=== PATIENT | male | born 1935 | race Caucasian/White ===

== ENCOUNTER 2023-05-19 10:37 | Outpatient (OUT) | payer MEDICARE, BC, SELFPAY ==
[2023-05-19 11:09] LABS: Basophils Percent Auto 0.6 % (0.2-2.0); Eosinophils Absolute Auto 0.2 10^3/uL (0.0-0.7); Eosinophils Percent Auto 4.1 % (0.9-7.0); Hematocrit 38.4 % (42.0-54.0); Immature Granulocytes Abs Auto 0.02 10^3/uL (0.00-0.03); Immature Granulocytes Pct Auto 0.4 % (0.0-0.5); Lymphocytes Absolute Auto 1.6 10^3/uL (1.2-3.8); Lymphocytes Percent Auto 29.8 % (20.5-60.0); Mean Corpuscular HGB Conc 33.9 g/dL (29.9-35.2); Mean Corpuscular Hemoglobin 30.2 pg (25.9-34.0); Mean Corpuscular Volume 89.1 fL (80.0-94.0); Mean Platelet Volume 9.7 fL (9.5-13.5); Monocytes Absolute Auto 0.5 10^3/uL (0.3-0.8); Monocytes Percent Auto 9.7 % (1.7-12.0); Neutrophils Percent Auto 55.4 % (43.0-75.0); Platelet Count 189 10^3/uL (150-450); Red Blood Count 4.31 10^6/uL (4.70-6.10); Red Cell Distribution Width 13.7 % (11.0-15.0); White Blood Count 5.4 10^3/uL (4.0-11.0)
[2023-05-19 11:51] LABS: Estimated Average Glucose 105 mg/dL; Glycohemoglobin A1C 5.3 % (4.5-6.2)
[2023-05-19 12:05] LABS: Alanine Aminotransferase 29 U/L (16-63); Albumin Globulin Ratio 0.9; Albumin Level 3.8 g/dL (3.4-5.0); Alkaline Phosphatase 153 U/L (46-116); Anion Gap 10.7; Aspartate Amino Transferase 20 U/L (15-37); Bilirubin Total 0.8 mg/dL (0.2-1.0); Calcium 9.9 mg/dL (8.5-10.1); Carbon Dioxide 29.6 mmol/L (21.0-32.0); Chloride 103 mmol/L (98-107); Chol HDL Ratio 3.2; Cholesterol 139 mg/dL (<=200); Estimated GFR (African America >60 (>=60); Estimated GFR (Non-African Ame 51 (>=60); Free T3 2.68 pg/mL (2.18-3.98); Globulin 4.1 g/dL; Glucose 101 mg/dL (74-106); HDL Cholesterol 44 mg/dL (40-60); LDL Cholesterol Calculated 75.4 mg/dL; Potassium 4.3 mmol/L (3.5-5.1); Sodium 139 mmol/L (136-145); Thyroid Stimulating Hormone 0.008 uIU/mL (0.358-3.740); Total Protein 7.9 g/dL (6.4-8.2); Triglycerides 98 mg/dL (<=150); Uric Acid 6.8 mg/dL (3.5-7.2); VLDL CHOLESTEROL 19.6 mg/dL
[2023-05-19 12:49] LABS: Prostate Specific Antigen Scrn 1.26 ng/mL (<=4.00)
[2023-05-20 12:08] LABS: Insulin 7.6 uIU/mL (2.6-24.9)
== END 2023-05-19 10:38 | disposition home or self-care (01) ==
LOC: LAB 10:46
PROVIDERS: PCP Family Medicine; Visit Provider Family Medicine
DX: E78.5 Hyperlipidemia, unspecified (principal); R73.09 Other abnormal glucose; Z12.5 Encounter for screening for malignant neoplasm of prostate; I11.0 Hypertensive heart disease with heart failure; I50.30 Unspecified diastolic (congestive) heart failure; E03.9 Hypothyroidism, unspecified; I30.0 Acute nonspecific idiopathic pericarditis; I48.91 Unspecified atrial fibrillation; K58.9 Irritable bowel syndrome, unspecified
CPT/HCPCS: 36415; 80053; 80061; 83036; 83525; 83880; 84436; 84443; 84481; 84550; 85025; G0103

== ENCOUNTER 2023-06-13 13:49 | Outpatient (OUT) | payer MEDICARE, BC, SELFPAY ==
--- NOTE | 2023-06-13 14:27 | CA_ITS ---
Patient: HOANG AQUINO Exam Date: 06/13/2023 : 1935 Gender:M Ordering : DR REAL VELASQUEZ M.D. Admission #: [id number] Family : TIM HEARD . Order #: [id number] CLICK HERE TO VIEW EXAM ECHOCARDIOGRAM REPORT PROCEDURE: CA ECHO DOPPLER COMPLETE INDICATIONS: Atrial fibrillation, PTCA COMPARISON: None. DESCRIPTION: COMPLETE ECHOCARDIOGRAM Real-time transthoracic echocardiography with 2D, M-mode, spectral and color flow Doppler performed. QUALITY: Technical quality was good. LEFT VENTRICLE: Normal chamber size. Normal left ventricular wall thickness. Normal systolic function. LV EF: Normal left ventricular ejection fraction, (>55%). DIASTOLIC: Not adequately assessed due to heart rhythm. ATRIAL SEPTUM: Visually appears intact. LEFT ATRIUM: Severe dilatation. RIGHT ATRIUM: Severe dilatation. RIGHT VENTRICLE: Moderate dilatation. Normal systolic function. TRICUSPID VALVE: Normal mobility and thickness. No stenosis with mild to moderate regurgitation. Doppler studies reveal moderately (45-60) elevated right sided pressures. RVSP 53 mmHg MITRAL VALVE: Normal mobility and thickness. No evidence of mitral valve stenosis. There is no mitral annular calcification. Mild to moderate mitral regurgitation. AORTIC VALVE: Normal trileaflet appearance. Mildly calcified aortic valve. Normal leaflet mobility. No evidence of aortic valve stenosis. Mild aortic regurgitation. AORTIC ROOT: Normal diameter and appearance. PULMONIC VALVE: Normal thickness and mobility. No stenosis. Mild regurgitation. PERICARDIUM: Trivial pericardial effusion. IVC: Normal in size. Collapses with inspirations. PLEURA: CONCLUSION: 1. Normal left ventricular size and systolic function. LVEF is 55%. 2. Moderately dilated right ventricle with normal systolic function. 3. Severe biatrial dilatation. 4. Mild to moderate mitral and tricuspid regurgitation. 5. Mild aortic regurgitation. 6. Moderately elevated right-sided pressures. RVSP is 53 mmHg. Adult Echocardiography Procedure Report Left Ventricle LVEDD (3.7 - 5.6 cm): 5.19 cm LVESD (2.2 - 4.0 cm): 4.03 cm LVIVS thickness (0.6 - 1.2 cm): 1.14 cm LVPW thickness (0.5 - 1.0 cm): 0.84 cm LVOT Max Gradient: 2.64 mm[Hg] LVOT Area (cm2): 0.81 m/s Peak Velocity (LVOT): 0.81 m/s Mean Velocity (LVOT): 0.54 m/s LVOT Diameter 2.04 cm Left Atrium LA Volume Index (2D A2C): 62.13 ml/m2 Left Atrium Systolic Dimension: 4.74 cm Mitral Valve Mitral Valve E-Wave Peak Velocity: 1.03 m/s Right Ventricle Aorta AO Root Diam: 3.04 cm Ascending Ao Diam: 2.70 cm Aortic Valve AoV Area (Peak Han): 2.32 cm2, 2.32 cm2 AoV Area (VTI): 2.32 cm2, 2.32 cm2 Peak Velocity(Antegrade Flow): 1.15 m/s Peak Gradient(Antegrade Flow): 5.26 mm[Hg] Mean Velocity(Antegrade Flow): 0.75 m/s Mean Gradient(Antegrade Flow): 2.59 mm[Hg] Velocity Time Integral: 27.21 cm Tricuspid Valve Peak Velocity (Regurgitant Flow): 3.19 m/s, 3.52 m/s, 2.74 m/s, 2.87 m/s Pulmonic Valve Peak Velocity: 0.84 m/s Peak Gradient: 3.22 mm[Hg], 2.18 mm[Hg], 3.08 mm[Hg] Right Atrium Right Atrium Systolic Pressure: 127.34 ml, 127.34 ml Dictated by: Real Velasquez M.D. on 06/14/2023 at 18:49 Approved by: Real Velasquez M.D. on 06/14/2023 at 18:55
== END 2023-06-13 13:50 | disposition home or self-care (01) ==
LOC: CARD 13:50
PROVIDERS: PCP Family Medicine; Visit Provider Internal Medicine Interventional Cardiology
DX: I48.11 Longstanding persistent atrial fibrillation (principal); I31.39 Other pericardial effusion (noninflammatory); I08.3 Combined rheumatic disorders of mitral, aortic and tricuspid valves
CPT/HCPCS: 93306

== ENCOUNTER 2024-06-19 09:49 | Outpatient (OUT) | payer MEDICARE, BC, SELFPAY ==
[2024-06-19 10:25] LABS: Basophils Percent Auto 0.6 % (0.2-2.0); Eosinophils Absolute Auto 0.3 10^3/uL (0.0-0.7); Eosinophils Percent Auto 4.6 % (0.9-7.0); Hematocrit 36.1 % (42.0-54.0); Hemoglobin 12.1 g/dL (14.0-18.0); Immature Granulocytes Abs Auto 0.02 10^3/uL (0.00-0.03); Immature Granulocytes Pct Auto 0.3 % (0.0-0.5); Lymphocytes Absolute Auto 2.2 10^3/uL (1.2-3.8); Lymphocytes Percent Auto 33.5 % (20.5-60.0); Mean Corpuscular HGB Conc 33.5 g/dL (29.9-35.2); Mean Corpuscular Volume 89.4 fL (80.0-94.0); Mean Platelet Volume 10.1 fL (9.5-13.5); Monocytes Absolute Auto 0.6 10^3/uL (0.3-0.8); Monocytes Percent Auto 9.7 % (1.7-12.0); Neutrophils Absolute Auto 3.3 10^3/uL (1.4-6.5); Neutrophils Percent Auto 51.3 % (43.0-75.0); Platelet Count 160 10^3/uL (150-450); Red Blood Count 4.04 10^6/uL (4.70-6.10); Red Cell Distribution Width 13.8 % (11.0-15.0); White Blood Count 6.5 10^3/uL (4.0-11.0)
[2024-06-19 12:03] LABS: Alanine Aminotransferase 23 U/L (16-63); Albumin Globulin Ratio 1.1; Albumin Level 3.7 g/dL (3.4-5.0); Alkaline Phosphatase 149 U/L (46-116); Anion Gap 12.4; Aspartate Amino Transferase 22 U/L (15-37); Bilirubin Total 0.8 mg/dL (0.2-1.0); Calcium 9.5 mg/dL (8.5-10.1); Carbon Dioxide 27.8 mmol/L (21.0-32.0); Chloride 102 mmol/L (98-107); Chol HDL Ratio 2.9; Cholesterol 129 mg/dL (<=200); Estimated GFR (African America >60 (>=60); Estimated GFR (Non-African Ame 53 (>=60); Globulin 3.4 g/dL; Glucose 94 mg/dL (74-106); HDL Cholesterol 44 mg/dL (40-60); LDL Cholesterol Calculated 67.8 mg/dL; Potassium 4.2 mmol/L (3.5-5.1); Sodium 138 mmol/L (136-145); Total Protein 7.1 g/dL (6.4-8.2); Triglycerides 86 mg/dL (<=150); VLDL CHOLESTEROL 17.2 mg/dL
== END 2024-06-19 09:50 | disposition home or self-care (01) ==
PROVIDERS: PCP Family Medicine; Visit Provider Internal Medicine Interventional Cardiology
DX: I25.10 Atherosclerotic heart disease of native coronary artery without angina pectoris (principal); I48.11 Longstanding persistent atrial fibrillation; I10 Essential (primary) hypertension; E78.2 Mixed hyperlipidemia
CPT/HCPCS: 36415; 80053; 80061; 85025

== ENCOUNTER 2024-07-16 13:48 | Outpatient (OUT) | payer MEDICARE, BC, SELFPAY ==
--- OUTSIDE RECORDS SUMMARY | 2024-07-16 14:04 | XMS_ITS | CCD ---
Author Organization [facility] CliniSywy Care Team Providers Care History Faculty Member Name Role Phone BETTY CARRERA Admitting Unavailable BETTY CARRERA Attending Unavailable HOPrerna ., DR DUMONT Primary Care Unavailable BETTY CARRERA Consulting Unavailable FÉLIX ., DR DUMONT Admitting Unavailable HOY ., DR DUMONT Attending Unavailable HOY ., DR DUMONT Primary Care Unavailable ROBERTO CARLOSY ., DR DUMONT Consulting Unavailable REAL GOMEZ Attending Unavailable LILY BEAN Attending Unavailable Problems Active Problems Problem Classification Problem Date Documented Date Episodic/Chronic Cancer; other and unspecified primary (1 source) Personal history of malignant neoplasm of other organs and systems; Translations: [PERS HX MALIG NEOPLASM OTH ORGN AND SYS] Onset: 01-25-2023 Episodic Cardiac dysrhythmias (2 sources) Paroxysmal atrial fibrillation; Translations: [Paroxysmal atrial fibrillation] Onset: 12-19-2022 Chronic Cataract (4 sources) Age-related nuclear cataract, right eye; Translations: [AGE-REL NUCLEAR CATARACT RT EYE] Onset: 01-19-2023 Chronic Coronary atherosclerosis and other heart disease (3 sources) Atherosclerotic heart disease of craig coronary artery without angina pectoris; Translations: [ASHD BREVIG [place]ION CA W/O ANGINA PECTORIS] Onset: 12-19-2022 Chronic Coronary atherosclerosis and other heart disease (3 sources) Presence of coronary angioplasty implant and graft; Translations: [PRESENCE COR ANGPLSTY IMPLANT AND GRAFT] Onset: 01-25-2023 Episodic Disorders of lipid metabolism (7 sources) Pure hypercholesterolemia, unspecified; Translations: [Hyperlipidemia, unspecified] Onset: 03-15-2022 Chronic Essential hypertension (3 sources) Essential (primary) hypertension; Translations: [ESSENTIAL PRIMARY HYPERTENSION] Onset: 12-19-2022 Chronic Hypertension with complications and secondary hypertension (2 sources) Hypertensive heart disease with heart failure; Translations: [Hypertensive heart disease with heart failure] Onset: 06-10-2024 Chronic Other aftercare (1 source) Other correction (current) drug therapy; Translations: [OTH MEMS DEVICE SCIENTIST CURRENT DRUG THERAPY] Onset: 01-25-2023 Episodic Pulmonary heart disease (2 sources) Pulmonary hypertension due to left heart disease; Translations: [Pulmonary hypertension due to left heart disease] Onset: 06-10-2024 Chronic Thyroid disorders (1 source) Hypothyroidism, unspecified; Translations: [HYPOTHYROIDISM UNSPECIFIED] Onset: 01-25-2023 Chronic Unclassified (2 sources) Longstanding persistent atrial fibrillation; Translations: [Longstanding persistent atrial fibrillation] Onset: 06-10-2024 Past or Other Problems Problem Classification Problem Date Documented Da te Episodic/Chronic Diabetes mellitus without complication (1 source) Other abnormal glucose; Translations: [OTHER ABNORMAL GLUCOSE] Onset: 03-17-2022 Episodic Other screening for suspected conditions (not mental disorders or infectious disease) (2 sources) Encounter for screening for malignant neoplasm of colon; Translations: [Encounter for screening for malignant neoplasm of prostate] Onset: 03-17-2022 Episodic Results Test Name Value Interpretation Reference Range Facility 36on 06-25-2024 36 Regarding lab results from 06/19/2024: MD Lupe Starr MA Blood testing was good, follow up in 6 months. Patient informed. Normal [facility] Office Visiton 06-10-2024 Follow-up visit [id number] Hoang Aquino 1935 M Date Provider Department Center 06/10/2024 REAL PAGAN EDD [facility] Family History Problem Relation Age of Onset Coronary artery disease Son Atrial fibrillation Son Hypertension Son Family Status - Relation Status Age at Son Other Level of Service:63865 [place] OFFICE/OUTPATIENT ESTABLISHED MOD MDM 30 MIN Normal [facility] 37on 11-22-2023 37 Increase cardura to 4 mg daily, monitor b/p and goal is less than 130/80 Call office for any concerns- lightheadedness, dizziness, falling, headaches or any concerns. Normal [facility] Office Visiton 11-22-2023 Follow-up visit [id number] Hoang Aquino 1935 M Date Provider Department Center 11/22/2023 LILY REDMOND [facility] Family History Problem Relation Age of Onset Coronary artery disease Son Atrial fibrillation Son Hypertension Son Family Status - Relation Status Age at Son Other Level of Service:08159 [place] OFFICE/OUTPATIENT ESTABLISHED MOD MDM 30 MIN Normal [facility] CBC AUTO DIFFon 03-15-2022 BASO # 0.0 103/ul Normal 0.0-0.1 [facility] Comment on above: Performed By: #### C BC #### [facility] [address] [address] [address] Lindsey Weiss Basophils/100 WBC (Bld) 0.5 % Normal 0.2-2.0 [facility] Comment on above: Performed By: #### C BC #### [facility] [address] [place] [address] Dr. Lindsey Weiss EO # 0.2 103/ul Normal 0.0-0.7 [facility] Comment on above: Performed By: #### C BC #### [facility] [address] [address] [address] Lindsey Weiss Eosinophils/100 WBC (Bld) 2.1 % Normal 0.9-7.0 [facility] Comment on above: Performed By: #### C BC #### [facility] [address] [place] [address] Dr. Lindsey Weiss Erythrocyte distribution width (RBC) [Ratio] 13.4 % Normal 11.0-15.0 [facility] Comment on above: Performed By: #### C BC #### [facility] [address] [place] [address] Dr. Lindsey Weiss Hematocrit (Bld) [Volume fraction] 34.1 % Critically low 42.0-54.0 [facility] Comment on above: Performed By: #### C BC #### [facility] [address] [place] [address] Dr. Lindsey Weiss Hemoglobin (Bld) [Mass/Vol] 11.2 g/dL Critically low 14.0-18.0 [facility] Comment on above: Performed By: #### C BC #### [facility] [address] [place] [address] Dr. Lindsey Weiss IG # 0.03 10e3/ul Normal 0.00-0.03 [facility] Comment on above: Performed By: #### C BC #### [facility] [address] [place] [address] Dr. Lindsey Weiss IG % 0.4 % Normal 0.0-0.5 [facility] Comment on above: Performed By: #### C BC #### [facility] [address] [place] [address] Dr. Lindsey Weiss LYMPH # 1.9 103/ul Normal 1.2-3.8 [facility] Comment on above: Performed By: #### C BC #### [facility] [address] [place] [address] Dr. Lindsey Weiss Lymphocytes/100 WBC (Bld) 23.8 % Normal 20.5-60.0 [facility] Comment on above: Performed By: #### C BC #### [facility] [address] [place] [address] Dr. Lindsey Weiss MANUAL DIFF REQ NO Normal [facility] Comment on above: Performed By: #### C BC #### [facility] [address] [place] [address] Dr. Lindsey Weiss MCH (RBC) [Entitic mass] 29.6 pg Normal 25.9-34.0 [facility] Comment on above: Performed By: #### C BC #### [facility] [address] [place] [address] Dr. Lindsey Weiss MCHC (RBC) [Mass/Vol] 32.8 g/dL Normal 29.9-35.2 [facility] Comment on above: Performed By: #### C BC #### [facility] [address] [place] [address] Dr. Lindsey Weiss MCV (RBC) [Entitic vol] 90.2 fL Normal 80.0-94.0 [facility] Comment on above: Performed By: #### C BC #### [facility] [address] [place] [address] Dr. Lindsey Weiss MONO # 0.6 103/ul Normal 0.3-0.8 [facility] Comment on above: Performed By: #### C BC #### [facility] [address] [place] [address] Dr. Lindsey Weiss Monocytes/100 WBC (Bld) 8.0 % Normal 1.7-12.0 [facility] Comment on above: Performed By: #### C BC #### [facility] [address] [place] [address] Dr. Lindsey Weiss NEUT # 5.1 103/ul Normal 1.4-6.5 [facility] Comment on above: Performed By: #### C BC #### [facility] [address] [place] [address] Dr. Lindsey Weiss Neutrophils/100 WBC (Bld) 65.2 % Normal 43.0-75.0 [facility] Comment on above: Performed By: #### C BC #### [facility] [address] [place] [address] Dr. Lindsey Weiss Platelet mean volume (Bld) [Entitic vol] 9.2 fL Critically low 9.5-13.5 [facility] Comment on above: Performed By: #### C BC #### [facility] [address] [place] [address] Dr. Lindsey Weiss PLT 209 103/ul Normal 150-450 [facility] Comment on above: Performed By: #### C BC #### [facility] [address] [place] [address] Dr. Lindsey Weiss RBC 3.78 106/ul Critically low 4.70-6.10 [facility] Comment on above: Performed By: #### C BC #### [facility] [address] [place] [address] Dr. Lindsey Weiss WBC 7.8 103/ul Normal 4.0-11.0 [facility] Comment on above: Performed By: #### C BC #### [facility] [address] [place] [address] Dr. Lindsey Weiss FREE T3on 03-15-2022 FREE T3 3.29 pg/mlL Normal 2.18-3.98 [facility] Comment on above: Performed By: #### C MP, LIPID, FT3, TSH, T4 #### [facility] [address] [address] [address] Lindsey Weiss GLYCOHEMOGLOBIN A1Con 2021 ADA RECOMMENDATION SEE BELOW Normal [facility] Comment on above: Result Comment: ADA RECOMMENDED LIMIT 4.0 - 6.0 ADA THERAPEUTIC TARGET < 7.0 ACTION SUGGESTED > 7.0 Performed By: #### A 1C #### [facility] [address] [place] [address] Dr. Lindsey Weiss Glucose [Mass/Vol] 105 mg/dL Normal [facility] Comment on above: Performed By: #### A 1C #### [facility] [address] [place] [address] Dr. Lindsey Weiss HbA1c (Bld) [Mass fraction] 5.3 % Normal 4.5-6.2 [facility] Comment on above: Performed By: #### A 1C #### [facility] [address] [place] [address] Dr. Lindsey Weiss LIPID PROFILEon 03-15-2022 CHOL-HDL RATIO NORM SEE BELOW Normal [facility] Comment on above: Result Comment: 3.3 - 4.4 LOW RISK 4.4 - 7.1 AVERAGE RISK 7.1 - 11.0 MODERATE RISK >11.0 HIGH RISK Performed By: #### C MP, LIPID, FT3, TSH, T4 #### [facility] [address] [place] [address] Dr. Lindsey Weiss Cholesterol [Mass/Vol] 126 mg/dL Normal <=200 [facility] Comment on above: Performed By: #### C MP, LIPID, FT3, TSH, T4 #### [facility] [address] [place] [address] Dr. Lindsey Weiss Cholesterol in HDL [Mass/Vol] 39 mg/dL Critically low 40-60 [facility] Comment on above: Performed By: #### C MP, LIPID, FT3, TSH, T4 #### [facility] [address] [place] [address] Dr. Lindsey Weiss Cholesterol in LDL [Mass/Vol] 65.4 mg/dL Normal [facility] Comment on above: Performed By: #### C MP, LIPID, FT3, TSH, T4 #### [facility] [address] [place] [address] Dr. Lindsey Weiss Cholesterol.total/Ch olesterol in HDL [Mass ratio] 3.2 {ratio} Normal [facility] Comment on above: Performed By: #### C MP, LIPID, FT3, TSH, T4 #### [facility] [address] [place] [address] Dr. Lindsey Weiss HDL NORMAL > or = 60 mg/dl - LOW CARDIOVASCULAR RISK <40 mg/dl - HIGH CARDIOVASCULAR RISK Normal [facility] Comment on above: Performed By: #### C MP, LIPID, FT3, TSH, T4 #### [facility] [address] [place] [address] Dr. Lindsey Weiss LDL CALC NORMAL SEE BELOW Normal [facility] Comment on above: Result Comment: <100 mg/dl OPTIMAL 100 - 129 mg/dl NEAR OR ABOVE OPTIMAL 130 - 159 mg/dl BORDERLINE HIGH 160 - 189 mg/dl HIGH >190 mg/dl VERY HIGH Performed By: #### C MP, LIPID, FT3, TSH, T4 #### [facility] [address] [place] [address] Dr. Lindsey Weiss Triglyceride [Mass/Vol] 108 mg/dL Normal <=150 [facility] Comment on above: Performed By: #### C MP, LIPID, FT3, TSH, T4 #### [facility] [address] [place] [address] Dr. Lindsey Weiss VLDL CALC 21.6 mg/dL Normal [facility] Comment on above: Performed By: #### C MP, LIPID, FT3, TSH, T4 #### [facility] [address] [place] [address] Dr. Lindsey Weiss PROF 14(COMP METB)on 022 Albumin [Mass/Vol] 3.7 g/dL Normal 3.4-5.0 [facility] Comment on above: Performed By: #### C MP, LIPID, FT3, TSH, T4 #### [facility] [address] [place] [address] Dr. Lindsey Weiss Albumin/Globulin [Mass ratio] 0.9 {ratio} Normal [facility] Comment on above: Performed By: #### C MP, LIPID, FT3, TSH, T4 #### [facility] [address] [place] [address] Dr. Lindsey Weiss ALP [Catalytic activity/Vol] 171 U/L Critically high 46-116 [facility] Comment on above: Performed By: #### C MP, LIPID, FT3, TSH, T4 #### [facility] [address] [place] [address] Dr. Lindsey Weiss ALT [Catalytic activity/Vol] 35 U/L Normal 16-63 [facility] Comment on above: Performed By: #### C MP, LIPID, FT3, TSH, T4 #### [facility] [address] [place] [address] Dr. Lindsey Weiss Anion gap [Moles/Vol] 11.3 mmol/L Normal [facility] Comment on above: Performed By: #### C MP, LIPID, FT3, TSH, T4 #### [facility] [address] [place] [address] Dr. Lindsey Weiss AST [Catalytic activity/Vol] 27 U/L Normal 15-37 [facility] Comment on above: Performed By: #### C MP, LIPID, FT3, TSH, T4 #### [facility] [address] [place] [address] Dr. Lindsey Weiss Bilirubin [Mass/Vol] 0.6 mg/dL Normal 0.2-1.0 [facility] Comment on above: Performed By: #### C MP, LIPID, FT3, TSH, T4 #### [facility] [address] [place] [address] Dr. Lindsey Weiss Calcium [Mass/Vol] 9.4 mg/dL Normal 8.5-10.1 [facility] Comment on above: Performed By: #### C MP, LIPID, FT3, TSH, T4 #### [facility] [address] [place] [address] Dr. Lindsey Weiss Chloride [Moles/Vol] 102 mmol/L Normal 98-107 [facility] Comment on above: Performed By: #### C MP, LIPID, FT3, TSH, T4 #### [facility] [address] [address] [address] Lindsey Weiss CO2 [Moles/Vol] 30.1 mmol/L Normal 21.0-32.0 [facility] Comment on above: Performed By: #### C MP, LIPID, FT3, TSH, T4 #### [facility] [address] [address] [address] Lindsey Weiss Creatinine [Mass/Vol] 1.31 mg/dL Critically high 0.70-1.30 [facility] Comment on above: Performed By: #### C MP, LIPID, FT3, TSH, T4 #### [facility] [address] [address] [address] Lindsey Weiss EGFR-AF ZIMBABWEAN >60 Normal >=60 [facility] Comment on above: Performed By: #### C MP, LIPID, FT3, TSH, T4 #### [facility] [address] [address] [address] Lindsey Weiss EGFR-NON AF ZIMBABWEAN 52 mL/min/1.73m2 Critically low >=60 [facility] Comment on above: Performed By: #### C MP, LIPID, FT3, TSH, T4 #### [facility] [address] [address] [address] Lindsey Weiss Globulin (S) [Mass/Vol] 3.9 g/dL Normal [facility] Comment on above: Performed By: #### C MP, LIPID, FT3, TSH, T4 #### [facility] [address] [address] [address] Lindsey Weiss Glucose [Mass/Vol] 98 mg/dL Normal 74-106 [facility] Comment on above: Performed By: #### C MP, LIPID, FT3, TSH, T4 #### [facility] [address] [address] [address] Lindsey Weiss Potassium [Moles/Vol] 4.4 mmol/L Normal 3.5-5.1 [facility] Comment on above: Performed By: #### C MP, LIPID, FT3, TSH, T4 #### [facility] [address] [place] [address] Dr. Lindsey Weiss Protein [Mass/Vol] 7.6 g/dL Normal 6.1-8.2 [facility] Comment on above: Performed By: #### C MP, LIPID, FT3, TSH, T4 #### [facility] [address] [place] [address] Dr. Lindsey Weiss Sodium [Moles/Vol] 139 mmol/L Normal 136-145 [facility] Comment on above: Performed By: #### C MP, LIPID, FT3, TSH, T4 #### [facility] [address] [place] [address] Dr. Lindsey Weiss Urea nitrogen [Mass/Vol] 19.0 mg/dL Critically high 7.0-18.0 [facility] Comment on above: Performed By: #### C MP, LIPID, FT3, TSH, T4 #### [facility] [address] [place] [address] Dr. Lindsey Weiss Urea nitrogen/Creatinine [Mass ratio] 14.5 mg/mg Normal [facility] Comment on above: Performed By: #### C MP, LIPID, FT3, TSH, T4 #### [facility] [address] [place] [address] Dr. Lindsey Weiss T4on 03-15-2022 T4 [Mass/Vol] 9.30 ug/dL Normal 4.50-12.10 [facility] Comment on above: Performed By: #### C MP, LIPID, FT3, TSH, T4 #### [facility] [address] [place] [address] Dr. Lindsey Weiss TSHon 03-15-2022 TSH 0.013 uIU/mL Critically low 0.470-4.680 [facility] Comment on above: Performed By: #### C MP, LIPID, FT3, TSH, T4 #### [facility] [address] [place] [address] Dr. Lindsey Weiss TSH RANGE SEE BELOW Normal [facility] Comment on above: Result Comment: <0.3 4 UIU/ml HYPERTHYROID 0.34-5.60 UIU/ml EUTHYROID >5.60 UIU/ml HYPOTHYROID Performed By: #### C MP, LIPID, FT3, TSH, T4 #### [facility] [address] [address] [address] CHEST W IVCONon 1 CT CHEST W IVCON * * *Final Report* * * DATE OF EXAM: Sep 23 2021 8:54AM [facility] 0539 - CT CHEST W IVCON / PROCEDURE REASON: Enlarged lymph node * * * * Physician Interpretation * * * * RESULT: EXAMINATION: CHEST CT WITH CONTRAST CLINICAL HISTORY: Enlarged Lymph Node Technique: Spiral CT acquisition of the chest from the thoracic inlet to the upper abdomen following IV contrast. MQ: [id number] Contrast: 140 mL Omnipaque [address] Radiation dose: Integrated Dose-length product (DLP) for this visit = 682 mGy*cm CT Dose Reduction Employed: Automated exposure control (AEC) Comparison: CT chest performed 09/10/2020 RESULT: Limitations: None. Lines, tubes, and devices: None. Lung parenchyma and airways: No dense lobar consolidation is seen. There is a stable 2 mm nodule in the right upper lobe (3:53). There is a stable 4 mm nodule in the right lower lobe (3:103). No new or enlarging nodules are visualized. Retained secretions are noted in the midportion of the trachea. The central airways are otherwise widely patent. Pleural space: No pleural effusion. No pleural thickening. Lower neck, lymph nodes, and mediastinum: The imaged thyroid gland is normal. No lymphadenopathy in the supraclavicular, axillary, mediastinal, or hilar regions. Heart, pericardium, and thoracic vessels: The thoracic aorta and main pulmonary artery are normal in caliber. The cardiac chambers are normal in size. Coronary artery atherosclerotic calcification is noted. No pericardial effusion is stable to slightly decreased in size. Bones and soft tissues: Degenerative change is seen in the thoracic spine. No destructive osseous lesions are seen. Superficial soft tissues are unremarkable. Upper abdomen: No abnormality in the imaged upper abdomen. Assistant Front Office Manager (topogram) images: No additional findings. IMPRESSION: 1. Unchanged appearance of right-sided pulmonary nodules. No new or enlarging nodules are visualized. 2. No pericardial effusion is stable to slightly decreased in size when compared to prior. Transcribe Date/Time: Sep 24 2021 10:13A Dictated by: DANNA SOLIS MD This examination was interpreted and the report reviewed and electronically signed by: DANNA SOLIS MD on Sep 24 2021 11:01AM EST Thank you for allowing us to participate in the care of your patient. Should there be any questions regarding this interpretation, please call [phone]. If you are unable to reach us at the number above, please feel free to contact [facility] at [phone]. 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 Contrast: Omnipaque 300. Contrast Dose: 140 cc Route of Administration: IV CT Radiation dose: Integrated Dose-length product (DLP) for this visit = 682 mGy*cm. CT Dose Reduction Employed: Automated exposure control (AEC) RESULT: Post-surgical/treatm ent: Expected post-treatment changes are noted with mucosal edema in the nasopharynx, and partial opacification of the right mastoid air cells and right middle ear. Primary Site: Again seen is prominence of the mucosa of the right nasopharynx compared to the left, with increased effacement of the right fossa of Rosenmuller compared to the left. However, this is unchanged. No new soft tissues to indicate recurrent disease at the primary site. Lymph nodes: [No pathologically enlarged, necrotic, or otherwise abnormal lymph nodes.] Rest of aerodigestive tract: There are no findings to suggest a second primary in the imaged aerodigestive tract. Evaluation of the visualized portions of brain, orbits, spine and lungs show no aggressive lesions suspicious for metastatic involvement. Mild to moderate cervical spondylosis noted. No significant paranasal sinus disease noted. Thyroid gland is unremarkable without evidence for nodule. Visualized lungs are clear. Parotid and submandibular glands are normal in appearance. Carotid arteries and jugular veins are patent bilaterally, with mild atherosclerosis at the bilateral carotid bulbs. Orbits: The globes and extraocular muscles appear normal.There is no evidence for retrobulbar mass. The parasellar region was within normal limits. The orbital rims are preserved. Other: Atherosclerotic calcifications noted in the bilateral carotid siphons. Small lesion in the trachea, likely debris. See concurrent CT chest. IMPRESSION: Primary NIRADS Category: 1. Expected post-treatment changes in the neck without evidence of recurrent disease in the primary site. Consider MRI of the neck with the suprahyoid protocol for future follow-up if clinically indicated. Neck NIRADS Category: 1. No evidence of abnormal lymph nodes. [email or web address] Transcribe Date/Time: Sep 23 2021 9:06A Dictated by: BETTY GEORGE MD This examination was interpreted and the report reviewed and electronically signed by: BETTY GEORGE MD on Sep 23 2021 9:15AM EST Thank you for allowing us to participate in the care of your patient. Should there be any questions regarding this interpretation, please call [phone]. If you are unable to reach us at the number above, please feel free to contact [facility] at [phone]. [id number] CN Normal [facility] Comp Metabolic Panelon 09-23 Albumin [Mass/Vol] 4.4 g/dL Normal 3.9-4.9 [facility] ALP [Catalytic activity/Vol] 167 U/L High 38-113 [facility] ALT [Catalytic activity/Vol] 17 U/L Normal 10-54 [facility] Anion gap [Moles/Vol] 11 mmol/L Normal 9-18 [facility] AST [Catalytic activity/Vol] 21 U/L Normal 14-40 [facility] Bilirubin [Mass/Vol] 0.7 mg/dL Normal 0.2-1.3 [facility] Calcium [Mass/Vol] 10.4 mg/dL High 8.5-10.2 [facility] Chloride [Moles/Vol] 103 mmol/L Normal 97-105 [facility] CO2 [Moles/Vol] 25 mmol/L Normal 22-30 [facility] Creatinine [Mass/Vol] 1.29 mg/dL High 0.73-1.22 [facility] eGFR- Amer. >60 Normal [facility] eGFR-All Other Races [address] [facility] Comment on above: Result Comment: eGFR (Estimated GFR) Units of measure: mL/min/1.73 meters squared eGFR is derived from the reexpressed MDRD Study equation using the following parameters: serum creatinine, age, gender and race. The creatinine assay has been calibrated to be traceable to IDMS. An eGFR <60 mL/min/1.73m2 for >3 months is consistent with chronic kidney disease. Refer to KDOQI guidelines for clinical interpretation. In patients with unstable renal function, e.g. those with acute kidney injury, the eGFR may not accurately reflect actual GFR. Glucose [Mass/Vol] 104 mg/dL High 74-99 [facility] Comment on above: Result Comment: The [place] Diabetes Association (ADA) provides guidance for cutoff values for fasting glucose and random glucose. The ADA defines fasting as no caloric intake for at least 8 hours. Fasting plasma glucose results between 100 to 125 mg/dL indicate increased risk for diabetes (prediabetes). Fasting plasma glucose results greater than or equal to 126 mg/dL meet the criteria for diagnosis of diabetes. In the absence of unequivocal hyperglycemia, results should be confirmed by repeat testing. In a patient with classic symptoms of hyperglycemia or hyperglycemic crisis, random plasma glucose results greater than or equal to 200 mg/dL meet the criteria for diagnosis of diabetes. Reference: Standards of Medical Care in Diabetes 2016, [place] [employer]. Diabetes Care. 2016.39(Suppl 1). Potassium [Moles/Vol] 4.1 mmol/L Normal 3.7-5.1 [facility] Protein [Mass/Vol] 7.4 g/dL Normal 6.3-8.0 [facility] Sodium [Moles/Vol] 139 mmol/L Normal 136-144 [facility] Urea nitrogen [Mass/Vol] 21 mg/dL Normal 9-24 [facility] Remote CBCDIF (for [facility] use o nly)on 09-23-2021 Abs Baso 0.03 k/uL Normal <0.11 [facility] Abs [place] 0.70 k/uL Normal <0.87 [facility] Abs Neut 3.11 k/uL Normal 1.45-7.50 [facility] Absolute nRBC <0.01 Normal <0.01 [facility] Basophils/100 WBC (Bld) 0.5 % Normal [facility] DTYPE Auto Diff Normal [facility] Eosinophils (Bld) [#/Vol] 0.21 10*3/uL Normal <0.46 [facility] Eosinophils/100 WBC (Bld) 3.7 % Normal [facility] Erythrocyte distribution width (RBC) [Ratio] 13.6 % Normal 11.5-15.0 [facility] Hematocrit (Bld) [Volume fraction] 34.2 % Low 39.0-51.0 [facility] Hemoglobin (Bld) [Mass/Vol] 11.6 g/dL Low 13.0-17.0 [facility] Lymphocytes (Bld) [#/Vol] 1.66 10*3/uL Normal 1.00-4.00 [facility] Lymphocytes/100 WBC (Bld) 29.0 % Normal [facility] MCH 29.4 pG Normal 26.0-34.0 [facility] MCHC (RBC) [Mass/Vol] 33.9 g/dL Normal 30.5-36.0 [facility] MCV (RBC) [Entitic vol] 86.6 fL Normal 80.0-100.0 [facility] Monocytes/100 WBC (Bld) 12.2 % Normal [facility] Neutrophils/100 WBC (Bld) 54.6 % Normal [facility] NRBCs 0.0 /100 WBC Normal 0 [facility] Platelet mean volume (Bld) [Entitic vol] 9.8 fL Normal 9.0-12.7 [facility] Platelets (Bld) [#/Vol] 163 10*3/uL Normal 150-400 [facility] RBC (Bld) [#/Vol] 3.95 10*6/uL Low 4.20-6.00 [facility] WBC (Bld) [#/Vol] 5.73 10*3/uL Normal 3.70-11.00 [facility] CNPNon 09-06-2021 CNPN Telephone (PETSAN) HOANG AQUINO ([id number]) 1935 M Date Time Provider Department 09/06/21 KAYLAH WILHELM (RN) ASTRID During your visit today, we recorded the following information about you: Kaylah Wilhelm 09/06/2021 7:59 AM Signed Did you want the Chest CT w/IVCON as historically done? It is ordered as Chest CT w/o IVCON currently. Patient comes in for scans 09/23. I have pended Chest CT w/IVCON if agreeable. Thanks! DIXON Caban MD 09/06/2021 1:26 PM Signed Creatinine has been high Kaylah Wlihelm 09/06/2021 1:28 PM Signed Okay do you want the neck CT w/o IV then too that day? Thanks DIXON Caban MD 09/06/2021 1:31 PM Signed Good point....! I signed your other one instead! Allergies As of Date: 09/06/2021 (No Known Allergies) Date Reviewed: 10/31/2020 Reviewed by: Dano Ontiveros - Fully Assessed Reason for Visit: Scans [867] Visit Diagnosis:Enlarged lymph node [R59.9] Order(s):CT CHEST W IVCON [[id number]] Order #: [id number] FUTURE iv contrast (will be provided with radiology test)CT Chest W -Inject, intravenously, once for 1 dose.No IV access, insert saline lock prior to the beginning of sedation, infusion, injection of imaging exam. Discontinue saline lock post exam. If Pt. has a central line or IVAD, may access for administration according to line specific nursing protocol. Once exam is complete flush line and de-access according to line specific nursing protocol in the CT contrast administration guidelines link.Disp: 1 EachRfl: 0 Prescriptions as of 09/06/2021 - iv contrast (will be provided with radiology test) CT Chest W -Inject, intravenously, once for 1 dose.No IV access, insert saline lock prior to the beginning of sedation, infusion, injection of imaging exam. Discontinue saline lock post exam. If Pt. has a central line or IVAD, may access for administration according to line specific nursing protocol. Once exam is complete flush line and de-access according to line specific nursing protocol in the CT contrast administration guidelines link. - amLODIPine (NORVASC) 10 mg tablet - apixaban (ELIQUIS) 2.5 mg tab tab(s) Eliquis 2.5 mg tablet Take 1 tablet twice a day by oral route. - liothyronine (CYTOMEL) 5 mcg tablet q 24 HR. - metoprolol succinate ER (TOPROL XL) 25 mg 24 hr tablet Take 1 tablet by mouth once daily. - aspirin 81 mg chewable tablet Take 1 tablet by mouth once daily. - atorvastatin (LIPITOR) 40 mg tablet Take 1 tablet by mouth daily at bedtime. - levothyroxine (SYNTHROID) 75 mcg tablet Take 1 tablet by mouth DAILY (6 AM). - iv contrast (will be provided with radiology test) CT Chest W -Inject, intravenously, once for 1 dose.No IV access, insert saline lock prior to the beginning of sedation, infusion, injection of imaging exam. Discontinue saline lock post exam. If Pt. has a central line or IVAD, may access for administration according to line specific nursing protocol. Once exam is complete flush line and de-access according to line specific nursing protocol in the CT contrast administration guidelines link. 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 Discontinue saline lock post exam. If Pt. has a central line or IVAD, may access for administration according to line specific nursing protocol. Once exam is complete flush line and de-access according to line specific nursing protocol in the CT contrast administration guidelines link. Encounter Status:Closed by KAYLAH WILHELM on 09/06/21 [facility] Encounters Encounter Date Encounter Type Care Provider Facility Start: 06-10-2024 End: 06-10-2024 ambulatory [facility] Start: 11-22-2023 End: 11-22-2023 ambulatory [facility] Start: 01-19-2023 End: 01-19-2023 ambulatory BETTY CARRERA Facility:[facility] Start: 03-15-2022 End: 03-16-[address] TIM HEARD . Facility:[facility] Procedures Date Procedure Procedure Detail Performing Clinician Start: 03-15-2022 PSA screening BETTY CARRERA Comment on above: Performed By: #### P [facility] #### [facility] [address] [place] [address] Dr. Lindsey Weiss Payers Date Payer Category Payer Unknown [id number] 1957 Medicare [id number] 1957 Unknown [id number] 1935 Unknown [id number] 1935 Unknown [id number] Clinical Notes 09-23-2021 to 06-10-2024 Note Date & Type Note Facility 06-10-2024 Note [place] [facility] Subjective Hoang Aquino is a 89 y.o. year old male patient being seen for 6 mo follow up valve disorder, CAD, and PAF. He's been out of Eliquis for 2 weeks now. He is not taking lasix due to frequent urination. Patient denies chest pain, SOB, palpitations, lightheadedness/syncope, and bleeding on Eliquis. No recent labs or imaging. Says BP at home runs around 140's/50's-60's. 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 (CMS/HCC) Hyperlipidemia Hypertensive disorder Hypothyroidism Impacted cerumen Irritable bowel syndrome Kidney stone Malignant neoplasm of nasopharynx (CMS/HCC) Moderate dehydration Osteoarthritis Paroxysmal atrial fibrillation (CMS/HCC) Pericardial effusion Psychosexual dysfunction associated with inhibited libido Sciatica Stricture of ureter Other specified abnormal findings of blood chemistry 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 Disorder of skin of trunk Mild mitral valve regurgitation Mild aortic valve regurgitation Family History Problem Relation Name Age of Onset Coronary artery disease Son Moo Atrial fibrillation Son Moo Hypertension Son Moo Social History Tobacco Use Smoking status: Former Types: Cigarettes Substance Use Topics Alcohol use: Yes Comment: occasional HPI Hoang is 89 yo man seen in follow up on atrial fibrillation diagnosed in September 2015 s/p cardioversion, CAD s/p drug eluting stenting of the RCA in March 2013 [At that time he had 30% narrowing in the LAD and circumflex vessels], Hypertension and dyslipidemia. He on Eliquis for anticoagulation. He was diagnosed to have brain cancer in March 2018 and treated with chemo and radiation. In October 2019 he developed pericardial effusion and was transferred to [facility] where he underwent pericardiocentesis. This did not show malignant cells. He was found to have profound hypothyroidism and was started on replacement therapy. Follow-up echocardiogram did not show significant pericardial effusion. Of note that his renal function became worse around the time of the pericardial effusion. His Cr then improved to 1.8 in November 2019 from 2.4 in october 2019. Most recently his Cr is around 1.3. At visit of 12/05/2019 I resumed amlodipine due to elevated blood pressure. This had been stopped at the time of his pericardial effusion. Today he reports that he has been doing well. He has no chest pain and no shortness of breath. He has no palpitations. He has no dizziness. He has no claudication. His blood pressure is significantly elevated. He ran out of [employer]. Review of Systems Cardiovascular: Negative for chest pain, dyspnea on exertion, leg swelling and palpitations. Objective Visit Vitals BP 155/67 (BP Location: Left arm, Patient Position: Sitting) Pulse 54 Ht 1.676 m (5' 6 ) Wt 67.6 kg (149 lb) SpO2 98% BMI 24.05 kg/m??? Smoking Status Former BSA 1.77 m??? Physical Exam Constitutional: Appearance: He is well-developed. He is not ill-appearing. HENT: Head: Normocephalic and atraumatic. Nose: Nose normal. Eyes: General: No scleral icterus. Pupils: Pupils are equal, round, and reactive to light. Neck: Thyroid: No thyromegaly. Vascular: No JVD. Cardiovascular: Rate and Rhythm: Normal rate. Rhythm irregularly irregular. Pulses: Radial pulses are 2+ on the right side and 2+ on the left side. Heart sounds: Normal heart sounds. No murmur heard. No friction rub. No gallop. Pulmonary: Effort: Pulmonary effort is normal. No respiratory distress. Breath sounds: Normal breath sounds. No wheezing or rales. Chest: Chest wall: No tenderness. Abdominal: General: Bowel sounds are normal. There is no distension. Palpations: Abdomen is soft. Tenderness: There is no abdominal tenderness. Musculoskeletal: General: No swelling. Cervical back: Neck supple. Skin: General: Skin is warm and dry. Neurological: General: No focal deficit present. Mental Status: He is alert and oriented to person, place, and time. Psychiatric: Mood and Affect: Mood normal. Behavior: Behavior is cooperative. Judgment: Judgment normal. Allergies No Known Allergies Medications Current Outpatient Medications: amLODIPine (Norvasc) 10 mg tablet, amlodipine 10 mg tablet TAKE ONE TABLET BY MOUTH ONCE DAILY, Disp: , Rfl: atorvastatin (Lipitor) 40 mg tablet, TAKE ONE TABLET BY MOUTH ONCE DAILY, Disp: 90 tablet, Rfl: 3 dicyclomine (Bentyl) 20 mg tablet, dicyclomine 20 mg tablet TAKE 1 TABLET BY MOUTH THREE TIMES A DAY, Disp: , Rfl: levothyroxine (Synthroid, Levoxyl) 125 mcg tablet, Take 125 mcg by mouth in the morning., Disp: , Rfl: liothyronine (Cytomel) 5 mcg tablet, liothyronine 5 mcg tablet TAKE TWO (more content not included)... [facility] 11-22-2023 Note Trivial pericardial effusion on recent echo [facility] 11-22-2023 Note Remains on eliquis a nticoagulation and denied any bleeding tendencies Continue metoprolol 100 mg - rate is well controlled [facility] 11-22-2023 Note Coronary artery dise ase is stable Continue GDMT- ASA, lipitor, metoprolol continue risk factor modifications- heart healthy diet, regular exercise as tolerated and continue all medications. [facility] 11-22-2023 Note Continue lipitor [facility] 11-22-2023 Note Hypertension is unco ntrolled in office and pt does not monitor at home. Increase cardura to 4 mg daily, continue norvasc 10 mg, and metoprolol 100 mg Asked pt to monitor b/p at least 1-2 times a day or even just a couple times a week, and goal b/p is 130/80 or less. Staff will call him next week to check b/p [facility] 11-22-2023 Note No concerning sympto ms today Continue ASA and metoprolol [facility] 11-22-2023 Note No concerning sympto ms today Will monitor [facility] 11-22-2023 Note [facility] CARDIOLOGY PROGR ESS NOTE HPI: Hoang Aquino is a 88 y.o. male here for routine f/U for atrial fibrillation diagnosed in September 2015 s/p cardioversion, CAD s/p drug eluting stenting of the RCA in March 2013 [At that time he had 30% narrowing in the LAD and circumflex vessels], Hypertension and dyslipidemia HPI 88 yo male presents today for routine f/U. Patient here for 6 mo follow up CAD, PAF, and hypertension. Had echo in May 2023 after last apt. Denies chest pain, SOB, palpitations, and bleeding on Eliquis. Denied any activity limiting symptoms. Overall states he is feeling well. He does not take his b/p at home. Review of Systems Musculoskeletal: Positive for arthritis and muscle weakness. All other systems reviewed and are negative. 06/06/[address] Gomez HPI Hoang is 88 yo man seen in follow up on atrial fibrillation diagnosed in September 2015 s/p cardioversion, CAD s/p drug eluting stenting of the RCA in March 2013 [At that time he had 30% narrowing in the LAD and circumflex vessels], Hypertension and dyslipidemia. He on Eliquis for anticoagulation. He was diagnosed to have brain cancer in March 2018 and treated with chemo and radiation. In October 2019 he developed pericardial effusion and was transferred to [facility] where he underwent pericardiocentesis. This did not show malignant cells. He was found to have profound hypothyroidism and was started on replacement therapy. Follow-up echocardiogram did not show significant pericardial effusion. Of note that his renal function became worse around the time of the pericardial effusion. His Cr then improved to 1.8 in November 2019 from 2.4 in october 2019. Most recently his Cr is around 1.3. At visit of 12/05/2019 I resumed amlodipine due to elevated blood pressure. This had been stopped at the time of his pericardial effusion. He has been doing well since last visit of 12/19/2022 with us. He has no chest pain and no shortness of breath. He has no palpitations. He has no dizziness. He has no claudication. Visit Vitals BP 178/82 (BP Location: Left arm, Patient Position: Sitting) Pulse 63 Ht 1.676 m (5' 6 ) Wt 69.4 kg (153 lb) SpO2 97% BMI 24.69 kg/m??? Smoking Status Former BSA 1.8 m??? No Known Allergies Medications: Current Outpatient Medications on File Prior to Visit Medication Sig Dispense Refill amLODIPine (Norvasc) 10 mg tablet amlodipine 10 mg tablet TAKE ONE TABLET BY MOUTH ONCE DAILY apixaban (Eliquis) 2.5 mg tablet every 12 (twelve) hours. atorvastatin (Lipitor) 40 mg tablet TAKE ONE TABLET BY MOUTH ONCE DAILY 90 tablet 3 dicyclomine (Bentyl) 20 mg tablet dicyclomine 20 mg tablet TAKE 1 TABLET BY MOUTH THREE TIMES A DAY furosemide (Lasix) 20 mg tablet Take 1 tablet (20 mg) by mouth once daily as directed. 90 tablet 3 levothyroxine (Synthroid, Levoxyl) 125 mcg tablet Take 125 mcg by mouth in the morning. liothyronine (Cytomel) 5 mcg tablet liothyronine 5 mcg tablet TAKE TWO TABLETS BY MOUTH ONCE DAILY metoprolol succinate XL (Toprol-XL) 100 mg 24 hr tablet metoprolol succinate ER 100 mg tablet,extended release 24 hr TAKE ONE TABLET BY MOUTH ONCE DAILY 90 tablet 3 [DISCONTINUED] doxazosin (Cardura) 2 mg tablet doxazosin 2 mg tablet TAKE ONE TABLET BY MOUTH DAILY aspirin 81 mg chewable tablet Chew 81 mg in the morning. No current facility-administered medications on file prior to visit. Physical Exam: Constitutional: Appearance: Normal appearance. Without apparent distress HENT: Head: Normocephalic and atraumatic. Nose: Nose normal. Mouth/Throat: Mouth: Mucous membranes are moist. Eyes: Extraocular Movements: Extraocular movements intact. Conjunctiva/sclera: Conjunctivae normal. Neck: Vascular: No JVD. Cardiovascular: Rate and Rhythm: Normal rate and irregular rhythm. Pulses: Dorsalis pedis pulses are 2 on the right side and 2on the left side. Posterior tibial pulses are 2 on the right side and 2 on the left side. Heart sounds: Normal heart sounds, S1 normal and S2 normal. Pulmonary: Effort: Pulmonary effort is normal. Breath sounds: Normal breath sounds. Abdominal: General: Bowel sounds are normal. Palpations: Abdomen is soft. Musculoskeletal: General: Normal range of motion. Cervical back: Normal range of motion. Right lower leg: No edema. Left lower leg: No edema. Skin: General: Skin is warm and dry. Capillary Refill: Capillary refill takes less than 2 seconds. Neurological: General: No focal deficit present. Mental Status: he is alert and oriented to person, place, and time. Psychiatric: Mood and Affect: Mood normal. Behavior: Behavior normal. Thought Content: Thought content normal. Judgment: Judgment normal. Labs: CBC stable, renal function stable for him, Chol 139 well controlled. Blood testing 05/19/2023: Hb 13, plt 189, K 4.3, BUN 20, Cr 1.33, eGFR 51, HbA1c 5.3%, NTproBNP 2678, TG 98, Chol 139, LDL 75, HD (more content not included)... [facility] 11-22-2023 Note Patient here for 6 m o follow up CAD, PAF, and hypertension. Had echo in May 2023 after last apt. Denies chest pain, SOB, palpitations, and bleeding on Eliquis. Review of Systems Musculoskeletal: Positive for arthritis and muscle weakness. All other systems reviewed and are negative. [facility] 01-19-2023 Note OPERATIVE NOTE OPERATION DATE: 01/19/2023 SURGEON: Betty Carrera D.O. PREOPERATIVE DIAGNOSIS: Nuclear sclerotic cataract right eye. POSTOPERATIVE DIAGNOSIS: Nuclear sclerotic cataract right eye. PROCEDURE NAME: Cataract extraction with intraocular lens placement of the right eye. ANESTHESIA: Topical ESTIMATED BLOOD LOSS: Zero. COMPLICATIONS: None. PROCEDURE: The patient was brought to the Operating Room in supine position. After proper identification, the right eye was prepped and draped in a sterile ophthalmic fashion. A paracentesis created at the 11 o'clock position. Approximately 1 cc of unpreserved Xylocaine was injected into the anterior chamber followed by Amvisc Plus. Using a 2.6 mm Keratome blade, a clear corneal incision was created at the 9 o'clock limbus. A cystotome was then used to begin a curvilinear capsulorrhexis that was continued for 360 degrees with the Utrata forceps. BSS on a 26 gauge cannula was injected beneath the anterior capsule to hydrodissect as well as hydrodelineate the lens. After ensuring mobility, phacoemulsification was performed in a [id number]-type fashion. After all nuclear material had been removed from the eye, IA was introduced and all residual cortical material was cleaned up. Additional Amvisc Plus was injected into the posterior bag and a lens model MX60, 20.5 diopters was injected and dialed into position. After ensuring centration, IA was reintroduced into the anterior chamber and all residual Amvisc Plus was removed from the eye. BSS on a 30 gauge cannula was injected into the stroma of both the clear corneal incision as well as paracentesis to hydrate the wounds. Additional BSS was injected into the anterior chamber to pressurize the eye at approximately 20 to 22 mmHg by finger tension. 0.1 cc of antibiotic was injected into the anterior chamber and Weck-Mallory sponges were used to check the wounds to be watertight. One drop of apraclonidine and one drop of prednisolone acetate placed into the eye and a shield was placed over top. The patient was sent to the postoperative area in satisfactory condition to follow up the following day for postoperative care. [facility] 01-19-2023 Note PREOPERATIVE HISTORY AND PHYSICAL Date:01/18/2023 HISTORY: Patient is an 88-year-old white male with complaints of declining vision out of his right eye. He believes that this began years ago, gradually worsening over the last 2-3 years. He is having difficulty with both his distance as well as his near vision. With the near, it is reading that has affected him most. He also states having difficulty with glare at night time and halos around car lights. PAST OCULAR HISTORY: Denies. PAST MEDICAL HISTORY: 1. Coronary artery disease status post stents placed in 2012. 2. Hypercholesterolemia. 3. Hypertension. 4. Hypothyroidism. 5. History of head and neck cancer status post radiation and chemotherapy in 2018. SOCIAL HISTORY: Drinks occasionally. Denies recreational drug abuse or tobacco. SYSTEMIC MEDICATIONS: Include metoprolol, liothyronine, dicyclomine and atorvastatin. ALLERGIES: Denies. REVIEW OF SYSTEMS: No pertinent positives. PHYSICAL EXAM: VITALS: Blood pressure measured at 169/91 with a respiratory rate of 12 and pulse of 69. GENERAL: He is awake, alert and oriented x3, well developed, well nourished, in no acute distress. HEART: Regular rate and rhythm. LUNGS: Clear bilaterally. ABDOMEN: Soft, non-tender, non-distended. EXTREMITIES: No pitting edema. OPHTHALMIC EXAM: Revealed a visual acuity of 20/40 +2 that glared to 20/200 bilaterally. Pupils motility, muscle balance, confrontational visual garcia within normal limits bilaterally. Pressures measured at 16 bilaterally. Slit lamp exam revealed blepharitis with a severe decrease in tear film bilaterally. Conjunctiva, cornea, anterior chamber and iris were within normal limits bilaterally. Lens status demonstrated 3+ nuclear sclerosis with 1+ cortical changes and 2+ PSC bilaterally. FUNDUS EXAM: Revealed a good view with good dilation bilaterally. Optic discs, macula, vessels, periphery and vitreous were within normal limits bilaterally. ASSESSMENT AND PLAN: 1. Visually significant cataract, right eye. After risks, benefits, alternatives, as well as expectations were delivered to the patient, he elected to go forward with cataract removal. He understands the risks include but not limited to infection, bleeding, loss of vision, loss of the eye itself. Secondly, he understands postoperatively he is likely to require spectacle correction for his best visual acuity. Finally, a complete ophthalmic exam was performed, there is not determined to be any other source of visual decline other than that of the cataract. 2. COVID-19, the patient was briefed in the office and consented for elective cataract surgery in the setting of the pandemic of coronavirus. He understands that he is at heightened risk going into a hospital setting; however, feels that his activities of daily living are depleted severe enough by his cataracts that he is willing to incur this risk and go forward with his elective procedure. [facility] 09-23-2021 Note HNO ID: [id number] Author: RT Domo(R) Service: ? Author Type: Technologist Type: Progress Notes Filed: 09/23/2021 8:50 AM Note Text: Radiology Service Progress Note PATIENT NAME: Hoang Aquino DATE OF SERVICE: September 23, 2021 TIME: 8:50 AM PATIENT IDENTITY VERIFICATION COMPLETED USING TWO (2) IDENTIFIERS: Name and Date of confirmed by patient verbally. FALL SCREENING: Has the patient had 2 falls in the last year or 1 fall with injury or currently using an Ambulatory Assistive Device (Walker, Cane, Wheelchair, Crutches, etc.)? No PATIENT GENDER DATA: Male PATIENT RELEVANT IMPLANT DATA REVIEWED: Not Applicable RADIOLOGY DEPARTMENT: CT; Exam(s) Completed: Chest and Neck PERIPHERAL IV DATA: Site assessment: Clean,Dry and Intact, Site disposition Discontinued SIGNED BY: RT Domo(R) September 23, 2021 8:50 AM [facility] Summary Purpose Family History No Family History Records FoundNo Family History Records FoundNo Family History Records Found Advance Directives No Advanced Directives Records FoundNo Advanced Directives Records FoundNo Advanced Directives Records Found Additional Source Comments (unrecognized sect ion and content) No Status Records FoundNo Status Records FoundNo Status Records Found INFORMATION SOURCE (unrecogn ized section and content) DATE CREATED AUTHOR 12/24/2021 [facility] DATE CREATED AUTHOR 'S ORGANIZ ATION 01/27/[address] [facility] DATE CREATED AUTHOR 'S ORGANIZ ATION 06/27/2024 [facility] FOR RECORDS PERTAINING TO PATIENTS WHO ARE OR HAVE BEEN ENROLLED IN A CHEMICAL DEPENDENCY/SUBSTANCEABUSE PROGRAM, SOME INFORMATION MAY BE OMITTED. This clinical summary was aggregated from multiple sources. Caution should be exercised in using it in the provision of clinical care. This summary normalizes information from multiple sources, and as a consequence, information in this document may materially change the coding, format and clinical context of patient data. In addition, data may be omitted in some cases. CLINICAL DECISIONS SHOULD BE BASED ON THE PRIMARY CLINICAL RECORDS. [facility] [employer] [facility] provides no warranty or guarantee of the accuracy or completeness of information in this document.
[2024-07-16 14:06] LABS: Basophils Percent Auto 0.7 % (0.2-2.0); Eosinophils Absolute Auto 0.2 10^3/uL (0.0-0.7); Eosinophils Percent Auto 3.8 % (0.9-7.0); Hematocrit 33.7 % (42.0-54.0); Hemoglobin 11.5 g/dL (14.0-18.0); Immature Granulocytes Abs Auto 0.01 10^3/uL (0.00-0.03); Immature Granulocytes Pct Auto 0.2 % (0.0-0.5); Lymphocytes Absolute Auto 1.1 10^3/uL (1.2-3.8); Lymphocytes Percent Auto 19.4 % (20.5-60.0); Mean Corpuscular HGB Conc 34.1 g/dL (29.9-35.2); Mean Corpuscular Hemoglobin 30.3 pg (25.9-34.0); Mean Corpuscular Volume 88.9 fL (80.0-94.0); Mean Platelet Volume 9.1 fL (9.5-13.5); Monocytes Absolute Auto 0.5 10^3/uL (0.3-0.8); Monocytes Percent Auto 8.5 % (1.7-12.0); Neutrophils Absolute Auto 3.9 10^3/uL (1.4-6.5); Neutrophils Percent Auto 67.4 % (43.0-75.0); Platelet Count 156 10^3/uL (150-450); Red Blood Count 3.79 10^6/uL (4.70-6.10); Red Cell Distribution Width 13.4 % (11.0-15.0); White Blood Count 5.8 10^3/uL (4.0-11.0)
[2024-07-16 14:24] LABS: Estimated Average Glucose 111 mg/dL; Glycohemoglobin A1C 5.5 % (4.5-6.2)
[2024-07-16 14:36] LABS: Alanine Aminotransferase 28 U/L (16-63); Albumin Globulin Ratio 0.9; Albumin Level 3.5 g/dL (3.4-5.0); Alkaline Phosphatase 165 U/L (46-116); Anion Gap 11.2; Aspartate Amino Transferase 25 U/L (15-37); BUN Creatinine Ratio 11.3; Bilirubin Total 0.8 mg/dL (0.2-1.0); Calcium 9.6 mg/dL (8.5-10.1); Carbon Dioxide 31.6 mmol/L (21.0-32.0); Chloride 99 mmol/L (98-107); Estimated GFR (African America >60 (>=60); Estimated GFR (Non-African Ame >60 (>=60); Globulin 3.7 g/dL; Glucose 147 mg/dL (74-106); Potassium 3.8 mmol/L (3.5-5.1); Sodium 138 mmol/L (136-145); Thyroid Stimulating Hormone <0.007 uIU/mL (0.358-3.740); Total Protein 7.2 g/dL (6.4-8.2)
== END 2024-07-16 13:49 | disposition home or self-care (01) ==
LOC: LAB 13:51
PROVIDERS: PCP Family Medicine; Visit Provider Family Medicine
DX: E03.9 Hypothyroidism, unspecified (principal); I48.91 Unspecified atrial fibrillation; I51.7 Cardiomegaly; R53.83 Other fatigue; R73.09 Other abnormal glucose
CPT/HCPCS: 36415; 80053; 83036; 84436; 84443; 84481; 85025

== ENCOUNTER 2024-09-12 11:16 | Outpatient (OUT) | payer MEDICARE, BC, SELFPAY ==
--- OUTSIDE RECORDS SUMMARY | 2024-09-12 11:32 | XMS_ITS | CCD ---
Author Organization [facility] CliniSyne Care Team Providers Care Window And Siding Craftsman Name Role Phone BETTY CARRERA Admitting Unavailable BETTY CARRERA Attending Unavailable HOPrerna ., DR DUMONT Primary Care Unavailable BETTY CARRERA Consulting Unavailable FÉLIX ., DR DUMONT Admitting Unavailable HOY ., DR UDMONT Attending Unavailable HOY ., DR DUMONT Primary [...] disease (3 sources) Atherosclerotic heart disease of [place] coronary artery without angina pectoris; Translations: [ASHD ANGOON CA W/O ANGINA PECTORIS] Onset: 12-19-2022 Chronic [...] 06-10-2024 Chronic Other aftercare (1 source) 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 Patient informed. Normal [facility] Office Visiton 06-10-2024 Follow-up visit [id number] Hoang Aquino 1935 M Date Provider Department Center 06/10/2024 [facility] Family History Problem Relation Age of Onset Coronary artery disease Son Atrial fibrillation Son Hypertension Son Family Status - Relation Status Age at Son Other Level of Service:08550 DC OFFICE/OUTPATIENT ESTABLISHED MOD MDM 30 MIN Normal [facility] 37on 11-22-2023 39 Increase cardura to 4 mg daily, monitor b/p and goal is less than 130/80 Call office for any concerns- lightheadedness, dizziness, falling, headaches or any concerns. Normal [facility] Office Visiton 11-22-2023 Follow-up visit [id number] Hoang Aquino 1935 M Date Provider Department Center 11/22/2023 LILY REDMOND [facility] Family History Problem Relation Age of Onset Coronary artery disease Son Atrial fibrillation Son Hypertension Son Family Status - Relation Status Age at Son Other Level of Service:66068 DC OFFICE/OUTPATIENT ESTABLISHED MOD MDM 30 MIN Normal [facility] CBC AUTO DIFFon 03-15-2022 BASO # 0.0 103/ul Normal 0.0-0.1 [facility] Comment on above: Performed By: #### C BC #### [facility] [address] [address] [address] Lindsey Weiss Basophils/100 WBC (Bld) 0.5 % Normal 0.2-2.0 [facility] Comment on above: Performed By: #### C BC #### [facility] [address] [place] [address] Dr. Lindsey Weiss EO # 0.2 103/ul Normal 0.0-0.7 [facility] Comment on above: Performed By: #### C BC #### [facility] [address] [address] [address] Lindsey Weiss Eosinophils/100 WBC (Bld) 2.1 % Normal 0.9-7.0 [facility] Comment on above: Performed By: #### C BC #### [facility] [address] [place] [address] Dr. Lindsey Weiss Erythrocyte distribution width (RBC) [Ratio] 13.4 % Normal 11.0-15.0 [facility] Comment on above: Performed By: #### C BC #### [facility] [address] [place] [address] Dr. Lindsey Weiss Hematocrit (Bld) [Volume fraction] 34.1 % Critically low 42.0-54.0 [facility] Comment on above: Performed By: #### C BC #### [facility] [address] [place] [address] Dr. Lindsey Weiss Hemoglobin (Bld) [Mass/Vol] 11.2 g/dL Critically low 14.0-18.0 [facility] Comment on above: Performed By: #### C BC #### [facility] [address] [place] [address] Dr. Lindsey Weiss IG # 0.03 10e3/ul Normal 0.00-0.03 [facility] Comment on above: Performed By: #### C BC #### [facility] [address] [place] [address] Dr. Lindsey Weiss IG % 0.4 % Normal 0.0-0.5 [facility] Comment on above: Performed By: #### C BC #### [facility] [address] [place] [address] Dr. Lindsey Weiss LYMPH # 1.9 103/ul Normal 1.2-3.8 [facility] Comment on above: Performed By: #### C BC #### [facility] [address] [place] [address] Dr. Lindsey Weiss Lymphocytes/100 WBC (Bld) 23.8 % Normal 20.5-60.0 [facility] Comment on above: Performed By: #### C BC #### [facility] [address] [place] [address] Dr. Lindsey Weiss MANUAL DIFF REQ NO Normal [facility] Comment on above: Performed By: #### C BC #### [facility] [address] [place] [address] Dr. Lindsey Weiss MCH (RBC) [Entitic mass] 29.6 pg Normal 25.9-34.0 [facility] Comment on above: Performed By: #### C BC #### [facility] [address] [place] [address] Dr. Lindsey Weiss MCHC (RBC) [Mass/Vol] 32.8 g/dL Normal 29.9-35.2 [facility] Comment on above: Performed By: #### C BC #### [facility] [address] [place] [address] Dr. Lindsey Weiss MCV (RBC) [Entitic vol] 90.2 fL Normal 80.0-94.0 [facility] Comment on above: Performed By: #### C BC #### [facility] [address] [place] [address] Dr. Lindsey Weiss MONO # 0.6 103/ul Normal 0.3-0.8 [facility] Comment on above: Performed By: #### C BC #### [facility] [address] [place] [address] Dr. Lindsey Weiss Monocytes/100 WBC (Bld) 8.0 % Normal 1.7-12.0 [facility] Comment on above: Performed By: #### C BC #### [facility] [address] [place] [address] Dr. Lindsey Weiss NEUT # 5.1 103/ul Normal 1.4-6.5 [facility] Comment on above: Performed By: #### C BC #### [facility] [address] [place] [address] Dr. Lindsey Weiss Neutrophils/100 WBC (Bld) 65.2 % Normal 43.0-75.0 [facility] Comment on above: Performed By: #### C BC #### [facility] [address] [place] [address] Dr. Lindsey Weiss Platelet mean volume (Bld) [Entitic vol] 9.2 fL Critically low 9.5-13.5 [facility] Comment on above: Performed By: #### C BC #### [facility] [address] [place] [address] Dr. Lindsey Weiss PLT 209 103/ul Normal 150-450 [facility] Comment on above: Performed By: #### C BC #### [facility] [address] [place] [address] Dr. Lindsey Weiss RBC 3.78 106/ul Critically low 4.70-6.10 [facility] Comment on above: Performed By: #### C BC #### [facility] [address] [place] [address] Dr. Lindsey Wesis WBC 7.8 103/ul Normal 4.0-11.0 [facility] Comment on above: Performed By: #### C BC #### [facility] [address] [place] [address] Dr. Lindsey Weiss FREE T3on 03-15-2022 FREE T3 3.29 pg/mlL Normal 2.18-3.98 [facility] Comment on above: Performed By: #### C MP, LIPID, FT3, TSH, T4 #### [facility] [address] [address] [address] Lindsey Weiss GLYCOHEMOGLOBIN A1Con 2021 ADA RECOMMENDATION SEE BELOW Normal [facility] Comment on above: Result Comment: ADA RECOMMENDED LIMIT 4.0 - 6.0 ADA THERAPEUTIC TARGET < 7.0 ACTION SUGGESTED > 7.0 Performed By: #### A 1C #### [facility] [address] [place] [address] Dr. Lindsey Weiss Glucose [Mass/Vol] 105 mg/dL Normal [facility] Comment on above: Performed By: #### A 1C #### [facility] [address] [place] [address] Dr. Lindsey Weiss HbA1c (Bld) [Mass fraction] 5.3 % Normal 4.5-6.2 [facility] Comment on above: Performed By: #### A 1C #### [facility] [address] [place] [address] Dr. Lindsey Weiss LIPID PROFILEon 03-15-2022 CHOL-HDL RATIO NORM SEE BELOW Normal [facility] Comment on above: Result Comment: 3.3 - 4.4 LOW RISK 4.4 - 7.1 AVERAGE RISK 7.1 - 11.0 MODERATE RISK >11.0 HIGH RISK Performed By: #### C MP, LIPID, FT3, TSH, T4 #### [facility] [address] [place] [address] Dr. Lindsey Weiss Cholesterol [Mass/Vol] 126 mg/dL Normal <=200 [facility] Comment on above: Performed By: #### C MP, LIPID, FT3, TSH, T4 #### [facility] [address] [place] [address] Dr. Lindsey Weiss Cholesterol in HDL [Mass/Vol] 39 mg/dL Critically low 40-60 [facility] Comment on above: Performed By: #### C MP, LIPID, FT3, TSH, T4 #### [facility] [address] [place] [address] Dr. Lindsey Weiss Cholesterol in LDL [Mass/Vol] 65.4 mg/dL Normal [facility] Comment on above: Performed By: #### C MP, LIPID, FT3, TSH, T4 #### [facility] [address] [place] [address] Dr. Lindsey Weiss Cholesterol.total/Ch olesterol in HDL [Mass ratio] 3.2 {ratio} Normal [facility] Comment on above: Performed By: #### C MP, LIPID, FT3, TSH, T4 #### [facility] [address] [place] [address] Dr. Lindsey Weiss HDL NORMAL > or = 60 mg/dl - LOW CARDIOVASCULAR RISK <40 mg/dl - HIGH CARDIOVASCULAR RISK Normal [facility] Comment on above: Performed By: #### C MP, LIPID, FT3, TSH, T4 #### [facility] [address] [place] [address] Dr. Lindsey Weiss LDL CALC NORMAL SEE BELOW Normal [facility] Comment on above: Result Comment: <100 mg/dl OPTIMAL 100 - 129 mg/dl NEAR OR ABOVE OPTIMAL 130 - 159 mg/dl BORDERLINE HIGH 160 - 189 mg/dl HIGH >190 mg/dl VERY HIGH Performed By: #### C MP, LIPID, FT3, TSH, T4 #### [facility] [address] [place] [address] Dr. Lindsey Weiss Triglyceride [Mass/Vol] 108 mg/dL Normal <=150 [facility] Comment on above: Performed By: #### C MP, LIPID, FT3, TSH, T4 #### [facility] [address] [place] [address] Dr. Lindsey Weiss VLDL CALC 21.6 mg/dL Normal [facility] Comment on above: Performed By: #### C MP, LIPID, FT3, TSH, T4 #### [facility] [address] [place] [address] Dr. Lindsey Weiss PROF 14(COMP METB)on 022 Albumin [Mass/Vol] 3.7 g/dL Normal 3.4-5.0 [facility] Comment on above: Performed By: #### C MP, LIPID, FT3, TSH, T4 #### [facility] [address] [place] [address] Dr. Lindsey Weiss Albumin/Globulin [Mass ratio] 0.9 {ratio} Normal [facility] Comment on above: Performed By: #### C MP, LIPID, FT3, TSH, T4 #### [facility] [address] [place] [address] Dr. Lindsey Weiss ALP [Catalytic activity/Vol] 171 U/L Critically high 46-116 [facility] Comment on above: Performed By: #### C MP, LIPID, FT3, TSH, T4 #### [facility] [address] [place] [address] Dr. Lindsey Weiss ALT [Catalytic activity/Vol] 35 U/L Normal 16-63 [facility] Comment on above: Performed By: #### C MP, LIPID, FT3, TSH, T4 #### [facility] [address] [place] [address] Dr. Lindsey Weiss Anion gap [Moles/Vol] 11.3 mmol/L Normal [facility] Comment on above: Performed By: #### C MP, LIPID, FT3, TSH, T4 #### [facility] [address] [place] [address] Dr. Lindsey Weiss AST [Catalytic activity/Vol] 27 U/L Normal 15-37 [facility] Comment on above: Performed By: #### C MP, LIPID, FT3, TSH, T4 #### [facility] [address] [place] [address] Dr. Lindsey Weiss Bilirubin [Mass/Vol] 0.6 mg/dL Normal 0.2-1.0 [facility] Comment on above: Performed By: #### C MP, LIPID, FT3, TSH, T4 #### [facility] [address] [place] [address] Dr. Lindsey Weiss Calcium [Mass/Vol] 9.4 mg/dL Normal 8.5-10.1 [facility] Comment on above: Performed By: #### C MP, LIPID, FT3, TSH, T4 #### [facility] [address] [place] [address] Dr. Lindsey Weiss Chloride [Moles/Vol] 102 mmol/L Normal 98-107 [facility] Comment on above: Performed By: #### C MP, LIPID, FT3, TSH, T4 #### [facility] [address] [address] [address] Lindsey Weiss CO2 [Moles/Vol] 30.1 mmol/L Normal 21.0-32.0 [facility] Comment on above: Performed By: #### C MP, LIPID, FT3, TSH, T4 #### [facility] [address] [address] [address] Lindsey Weiss Creatinine [Mass/Vol] 1.31 mg/dL Critically high 0.70-1.30 [facility] Comment on above: Performed By: #### C MP, LIPID, FT3, TSH, T4 #### [facility] [address] [address] [address] Lindsey Weiss EGFR-AF INDONESIAN >60 Normal >=60 [facility] Comment on above: Performed By: #### C MP, LIPID, FT3, TSH, T4 #### [facility] [address] [address] [address] Lindsey Weiss EGFR-NON AF INDONESIAN 52 mL/min/1.73m2 Critically low >=60 [facility] Comment on above: Performed By: #### C MP, LIPID, FT3, TSH, T4 #### [facility] [address] [address] [address] Lindsey Weiss Globulin (S) [Mass/Vol] 3.9 g/dL Normal [facility] Comment on above: Performed By: #### C MP, LIPID, FT3, TSH, T4 #### [facility] [address] [address] [address] Lindsey Weiss Glucose [Mass/Vol] 98 mg/dL Normal 74-106 [facility] Comment on above: Performed By: #### C MP, LIPID, FT3, TSH, T4 #### [facility] [address] [address] [address] Lindsey Weiss Potassium [Moles/Vol] 4.4 mmol/L Normal 3.5-5.1 [facility] Comment on above: Performed By: #### C MP, LIPID, FT3, TSH, T4 #### [facility] [address] [place] [address] Dr. Lindsey Weiss Protein [Mass/Vol] 7.6 g/dL Normal 6.1-8.2 [facility] Comment on above: Performed By: #### C MP, LIPID, FT3, TSH, T4 #### [facility] [address] [place] [address] Dr. Lindsey Weiss Sodium [Moles/Vol] 139 mmol/L Normal 136-145 [facility] Comment on above: Performed By: #### C MP, LIPID, FT3, TSH, T4 #### [facility] [address] [place] [address] Dr. Lindsey Weiss Urea nitrogen [Mass/Vol] 19.0 mg/dL Critically high 7.0-18.0 [facility] Comment on above: Performed By: #### C MP, LIPID, FT3, TSH, T4 #### [facility] [address] [place] [address] Dr. Lindsey Weiss Urea nitrogen/Creatinine [Mass ratio] 14.5 mg/mg Normal [facility] Comment on above: Performed By: #### C MP, LIPID, FT3, TSH, T4 #### [facility] [address] [place] [address] Dr. Lindsey Weiss T4on 03-15-2022 T4 [Mass/Vol] 9.30 ug/dL Normal 4.50-12.10 [facility] Comment on above: Performed By: #### C MP, LIPID, FT3, TSH, T4 #### [facility] [address] [place] [address] Dr. Lindsey Weiss TSHon 03-15-2022 TSH 0.013 uIU/mL Critically low 0.470-4.680 [facility] Comment on above: Performed By: #### C MP, LIPID, FT3, TSH, T4 #### [facility] [address] [place] [address] Dr. Lindsey Weiss TSH RANGE SEE BELOW Normal [facility] Comment on above: Result Comment: <0.3 4 UIU/ml HYPERTHYROID 0.34-5.60 UIU/ml EUTHYROID >5.60 UIU/ml HYPOTHYROID Performed By: #### C MP, LIPID, FT3, TSH, T4 #### [facility] [address] [address] [address] CHEST W IVCONon 1 CT CHEST W IVCON * * *Final Report* * * DATE OF EXAM: Sep 23 2021 8:54AM [facility] 0539 - CT CHEST W IVCON / [...] No abnormality in the imaged upper abdomen. Drum Printer (topogram) images: No additional findings. IMPRESSION: 1. [...] any questions regarding this interpretation, please call [phone]. If you are unable to reach us at the number above, please feel free to contact [facility] at [phone]. [id number] CN Normal [facility] CT NECK SOFT TISSUE W IVCONo n 09-23-2021 CT NECK SOFT TISSUE W IVCON * * *Final Report* * * DATE OF EXAM: Sep 23 2021 8:54AM [facility] 0013 - CT NECK SOFT TISSUE W [...] any questions regarding this interpretation, please call [phone]. If you are unable to reach us at the number above, please feel free to contact [facility] at [phone]. [id number] CN Normal [facility] Comp Metabolic Panelon 09-23 Albumin [Mass/Vol] 4.4 g/dL Normal 3.9-4.9 [facility] ALP [Catalytic activity/Vol] 167 U/L High 38-113 [facility] ALT [Catalytic activity/Vol] 17 U/L Normal 10-54 [facility] Anion gap [Moles/Vol] 11 mmol/L Normal 9-18 [facility] AST [Catalytic activity/Vol] 21 U/L Normal 14-40 [facility] Bilirubin [Mass/Vol] 0.7 mg/dL Normal 0.2-1.3 [facility] Calcium [Mass/Vol] 10.4 mg/dL High 8.5-10.2 [facility] Chloride [Moles/Vol] 103 mmol/L Normal 97-105 [facility] CO2 [Moles/Vol] 25 mmol/L Normal 22-30 [facility] Creatinine [Mass/Vol] 1.29 mg/dL High 0.73-1.22 [facility] eGFR- Amer. >60 Normal [facility] eGFR-All Other Races 53 . Normal [facility] Comment on above: Result Comment: eGFR (Estimated [...] GFR. Glucose [Mass/Vol] 104 mg/dL High 74-99 [facility] Comment on above: Result Comment: The [place] Diabetes Association (ADA) provides guidance for cutoff [...] Standards of Medical Care in Diabetes 2016, [place] Diabetes Association. Diabetes Care. 2016.39(Suppl 1). Potassium [Moles/Vol] 4.1 mmol/L Normal 3.7-5.1 [facility] Protein [Mass/Vol] 7.4 g/dL Normal 6.3-8.0 [facility] Sodium [Moles/Vol] 139 mmol/L Normal 136-144 [facility] Urea nitrogen [Mass/Vol] 21 mg/dL Normal 9-24 [facility] Remote CBCDIF (for [facility] use o nly)on 09-23-2021 Abs Baso 0.03 k/uL Normal <0.11 [facility] Abs Dale 0.70 k/uL Normal <0.87 [facility] Abs Neut 3.11 k/uL Normal 1.45-7.50 [facility] Absolute nRBC <0.01 Normal <0.01 [facility] Basophils/100 WBC (Bld) 0.5 % Normal [facility] DTYPE Auto Diff Normal [facility] Eosinophils (Bld) [#/Vol] 0.21 10*3/uL Normal <0.46 [facility] Eosinophils/100 WBC (Bld) 3.7 % Normal [facility] Erythrocyte distribution width (RBC) [Ratio] 13.6 % Normal 11.5-15.0 [facility] Hematocrit (Bld) [Volume fraction] 34.2 % Low 39.0-51.0 [facility] Hemoglobin (Bld) [Mass/Vol] 11.6 g/dL Low 13.0-17.0 [facility] Lymphocytes (Bld) [#/Vol] 1.66 10*3/uL Normal 1.00-4.00 [facility] Lymphocytes/100 WBC (Bld) 29.0 % Normal [facility] MCH 29.4 pG Normal 26.0-34.0 [facility] MCHC (RBC) [Mass/Vol] 33.9 g/dL Normal 30.5-36.0 [facility] MCV (RBC) [Entitic vol] 86.6 fL Normal 80.0-100.0 [facility] Monocytes/100 WBC (Bld) 12.2 % Normal [facility] Neutrophils/100 WBC (Bld) 54.6 % Normal [facility] NRBCs 0.0 /100 WBC Normal 0 [facility] Platelet mean volume (Bld) [Entitic vol] 9.8 fL Normal 9.0-12.7 [facility] Platelets (Bld) [#/Vol] 163 10*3/uL Normal 150-400 [facility] RBC (Bld) [#/Vol] 3.95 10*6/uL Low 4.20-6.00 [facility] WBC (Bld) [#/Vol] 5.73 10*3/uL Normal 3.70-11.00 [facility] CNPNon 09-06-2021 CNPN Telephone (PETSAN) HOANG AQUINO ([id number]) 1935 M Date Time Provider Department 09/06/21 [...] PM Signed Creatinine has been high Kaylah Wilhelm 09/06/2021 1:28 PM Signed Okay do you [...] lymph node [R59.9] Order(s):CT CHEST W IVCON [[id number]] Order #: [id number] FUTURE iv contrast (will be provided with [...] Encounter Status:Closed by KAYLAH WILHELM on 09/06/21 [facility] Encounters Encounter Date Encounter Type Care Provider Facility Start: 06-10-2024 End: 06-10-2024 [facility]ulatory [facility] Start: 11-22-2023 End: 11-22-2023 ambulatory L[facility] Start: 01-19-2023 End: 01-19-2023 ambulatory BETTY CARRERA Facility:[facility] Start: 03-15-2022 End: 03-16-[address] TIM HEARD . Facility:[facility] Procedures Date Procedure Procedure Detail Performing Clinician Start: 03-15-2022 PSA screening BETTY CARRERA Comment on above: Performed By: #### P [facility] #### [facility] [address] [place] [address] Dr. Lindsey Weiss Payers Date Payer Category Payer Unknown [id number] 1957 Medicare [id number] 1957 Unknown [id number] 1935 Unknown [id number] 1935 Unknown [id number] Clinical Notes 09-23-2021 to 06-10-2024 Note Date & Type Note Facility 06-10-2024 Note MD Cardiology - 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 This did [...] is significantly elevated. He ran out of Gobble. Review of Systems Cardiovascular: Negative for chest [...] tablet TAKE TWO (more content not included)... [facility] 11-22-2023 Note Trivial pericardial effusion on recent echo [facility] 11-22-2023 Note Remains on eliquis a nticoagulation and denied any bleeding tendencies Continue metoprolol 100 mg - rate is well controlled [facility] 11-22-2023 Note Coronary artery dise ase is stable Continue GDMT- ASA, lipitor, metoprolol continue risk factor modifications- heart healthy diet, regular exercise as tolerated and continue all medications. [facility] 11-22-2023 Note Continue lipitor [facility] 11-22-2023 Note Hypertension is unco ntrolled in [...] call him next week to check b/p [facility] 11-22-2023 Note No concerning sympto ms today Continue ASA and metoprolol [facility] 11-22-2023 Note No concerning sympto ms today Will monitor [facility] 11-22-2023 Note UTP CARDIOLOGY PROGR ESS [...] developed pericardial effusion and was transferred to [facility] where he underwent pericardiocentesis. This did [...] LDL 75, HD (more content not included)... [facility] 11-22-2023 Note Patient here for 6 m o follow up CAD, PAF, and hypertension. Had echo in May 2023 after last apt. Denies chest pain, SOB, palpitations, and bleeding on Eliquis. Review of Systems Musculoskeletal: Positive for arthritis and muscle weakness. All other systems reviewed and are negative. [facility] 01-19-2023 Note OPERATIVE NOTE OPERATION DATE: [...] ensuring mobility, phacoemulsification was performed in a [id number]-type fashion. After all nuclear material had been [...] [facility] 09-23-2021 Note HNO ID: [id number] Author: RT Domo(R) Service: ? Author Type: [...] RT Domo(R) September 23, 2021 8:50 AM [facility] Summary Purpose Family History No Family History Records FoundNo Family History Records FoundNo Family History Records Found Advance Directives No Advanced Directives Records FoundNo Advanced Directives Records FoundNo Advanced Directives Records Found Additional Source Comments (unrecognized sect ion and content) No Status Records FoundNo Status Records FoundNo Status Records Found INFORMATION SOURCE (unrecogn ized section and content) DATE CREATED AUTHOR 12/24/2021 [facility] DATE CREATED AUTHOR 'S ORGANIZ ATION 01/27/2023 [facility] DATE CREATED AUTHOR 'S ORGANIZ ATION 06/27/2024 [facility] FOR RECORDS PERTAINING TO PATIENTS WHO [...] BE BASED ON THE PRIMARY CLINICAL RECORDS. [facility] [employer] [facility]. provides no warranty or guarantee of the accuracy or completeness of information in this document.
[2024-09-12 13:20] LABS: Free T3 2.11 pg/mL (2.18-3.98); Thyroid Stimulating Hormone 0.012 uIU/mL (0.358-3.740)
== END 2024-09-12 11:17 | disposition home or self-care (01) ==
LOC: LAB 11:20
PROVIDERS: PCP Family Medicine; Visit Provider Family Medicine
DX: E03.9 Hypothyroidism, unspecified (principal)
CPT/HCPCS: 36415; 84436; 84443; 84481

== ENCOUNTER 2024-12-18 15:55 | Outpatient (REF) | payer MEDICARE, BC, SELFPAY ==
--- OUTSIDE RECORDS SUMMARY | 2024-12-18 16:18 | XMS_ITS | CCD ---
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 Patient informed. Normal [facility] Office Visiton 06-10-2024 Follow-up visit [id number] Hoang Aquino 1935 M Date Provider Department Center 06/10/2024 [facility] Family History Problem Relation Age of Onset Coronary artery disease Son Atrial fibrillation Son Hypertension Son Family Status - Relation Status Age at Son Other Level of Service:33876 [place] OFFICE/OUTPATIENT ESTABLISHED MOD MDM 30 MIN Normal [facility] 37on 11-22-2023 37 Increase cardura to 4 mg daily, monitor b/p and goal is less than 130/80 Call office for any concerns- lightheadedness, dizziness, falling, headaches or any concerns. Normal [facility] Office Visiton 11-22-2023 Follow-up visit [id number] Hoang Aquino 1935 M Date Provider Department Center 11/22/2023 LILY REDMOND [facility] Family History Problem Relation Age of Onset Coronary artery disease Son Atrial fibrillation Son Hypertension Son Family Status - Relation Status Age at Son Other Level of Service:99907 [place] OFFICE/OUTPATIENT ESTABLISHED MOD MDM 30 MIN Normal [facility] CBC AUTO DIFFon 03-15-2022 BASO # 0.0 103/ul Normal 0.0-0.1 [facility] Comment on above: Performed By: #### C BC #### [facility] [address] [address] [address] Lindsey Weiss Basophils/100 WBC (Bld) 0.5 % Normal 0.2-2.0 [facility] Comment on above: Performed By: #### C BC #### [facility] [address] [place] [address] Dr. Lindsey Weiss EO # 0.2 103/ul Normal 0.0-0.7 [facility] Comment on above: Performed By: #### C BC #### [facility] [address] [address] [address] Lindsey Weiss Eosinophils/100 WBC (Bld) 2.1 % Normal 0.9-7.0 [facility] Comment on above: Performed By: #### C BC #### [facility] [address] [place] [address] Dr. Lindsey Weiss Erythrocyte distribution width (RBC) [Ratio] 13.4 % Normal 11.0-15.0 [facility] Comment on above: Performed By: #### C BC #### [facility] [address] [place] [address] Dr. Lindsey Weiss Hematocrit (Bld) [Volume fraction] 34.1 % Critically low 42.0-54.0 [facility] Comment on above: Performed By: #### C BC #### [facility] [address] [place] [address] Dr. Lindsey Weiss Hemoglobin (Bld) [Mass/Vol] 11.2 g/dL Critically low 14.0-18.0 [facility] Comment on above: Performed By: #### C BC #### [facility] [address] [place] [address] Dr. Lindsey Weiss IG # 0.03 10e3/ul Normal 0.00-0.03 [facility] Comment on above: Performed By: #### C BC #### [facility] [address] [place] [address] Dr. Lindsey Weiss IG % 0.4 % Normal 0.0-0.5 [facility] Comment on above: Performed By: #### C BC #### [facility] [address] [place] [address] Dr. Lindsey Weiss LYMPH # 1.9 103/ul Normal 1.2-3.8 [facility] Comment on above: Performed By: #### C BC #### [facility] [address] [place] [address] Dr. Lindsey Weiss Lymphocytes/100 WBC (Bld) 23.8 % Normal 20.5-60.0 [facility] Comment on above: Performed By: #### C BC #### [facility] [address] [place] [address] Dr. Lindsey Weiss MANUAL DIFF REQ NO Normal [facility] Comment on above: Performed By: #### C BC #### [facility] [address] [place] [address] Dr. Lindsey Weiss MCH (RBC) [Entitic mass] 29.6 pg Normal 25.9-34.0 [facility] Comment on above: Performed By: #### C BC #### [facility] [address] [place] [address] Dr. Lindsey Weiss MCHC (RBC) [Mass/Vol] 32.8 g/dL Normal 29.9-35.2 [facility] Comment on above: Performed By: #### C BC #### [facility] [address] [place] [address] Dr. Lindsey Weiss MCV (RBC) [Entitic vol] 90.2 fL Normal 80.0-94.0 [facility] Comment on above: Performed By: #### C BC #### [facility] [address] [place] [address] Dr. Lindsey Weiss MONO # 0.6 103/ul Normal 0.3-0.8 [facility] Comment on above: Performed By: #### C BC #### [facility] [address] [place] [address] Dr. Lindsey Weiss Monocytes/100 WBC (Bld) 8.0 % Normal 1.7-12.0 [facility] Comment on above: Performed By: #### C BC #### [facility] [address] [place] [address] Dr. Lindsey Weiss NEUT # 5.1 103/ul Normal 1.4-6.5 [facility] Comment on above: Performed By: #### C BC #### [facility] [address] [place] [address] Dr. Lindsey Weiss Neutrophils/100 WBC (Bld) 65.2 % Normal 43.0-75.0 [facility] Comment on above: Performed By: #### C BC #### [facility] [address] [place] [address] Dr. Lindsey Weiss Platelet mean volume (Bld) [Entitic vol] 9.2 fL Critically low 9.5-13.5 [facility] Comment on above: Performed By: #### C BC #### [facility] [address] [place] [address] Dr. Lindsey Weiss PLT 209 103/ul Normal 150-450 [facility] Comment on above: Performed By: #### C BC #### [facility] [address] [place] [address] Dr. Lindsey Weiss RBC 3.78 106/ul Critically low 4.70-6.10 [facility] Comment on above: Performed By: #### C BC #### [facility] [address] [place] [address] Dr. Lindsey Weiss WBC 7.8 103/ul Normal 4.0-11.0 [facility] Comment on above: Performed By: #### C BC #### [facility] [address] [place] [address] Dr. Lindsey Weiss FREE T3on 03-15-2022 FREE T3 3.29 pg/mlL Normal 2.18-3.98 [facility] Comment on above: Performed By: #### C MP, LIPID, FT3, TSH, T4 #### [facility] [address] [address] [address] Lindsey Weiss GLYCOHEMOGLOBIN A1Con 2021 ADA RECOMMENDATION SEE BELOW Normal [facility] Comment on above: Result Comment: ADA RECOMMENDED LIMIT 4.0 - 6.0 ADA THERAPEUTIC TARGET < 7.0 ACTION SUGGESTED > 7.0 Performed By: #### A 1C #### [facility] [address] [place] [address] Dr. Lindsey Weiss Glucose [Mass/Vol] 105 mg/dL Normal [facility] Comment on above: Performed By: #### A 1C #### [facility] [address] [place] [address] Dr. Lindsey Weiss HbA1c (Bld) [Mass fraction] 5.3 % Normal 4.5-6.2 [facility] Comment on above: Performed By: #### A 1C #### [facility] [address] [place] [address] Dr. Lindsey Weiss LIPID PROFILEon 03-15-2022 CHOL-HDL RATIO NORM SEE BELOW Normal [facility] Comment on above: Result Comment: 3.3 - 4.4 LOW RISK 4.4 - 7.1 AVERAGE RISK 7.1 - 11.0 MODERATE RISK >11.0 HIGH RISK Performed By: #### C MP, LIPID, FT3, TSH, T4 #### [facility] [address] [place] [address] Dr. Lindsey Weiss Cholesterol [Mass/Vol] 126 mg/dL Normal <=200 [facility] Comment on above: Performed By: #### C MP, LIPID, FT3, TSH, T4 #### [facility] [address] [place] [address] Dr. Lindsey Weiss Cholesterol in HDL [Mass/Vol] 39 mg/dL Critically low 40-60 [facility] Comment on above: Performed By: #### C MP, LIPID, FT3, TSH, T4 #### [facility] [address] [place] [address] Dr. Lidnsey Weiss Cholesterol in LDL [Mass/Vol] 65.4 mg/dL Normal [facility] Comment on above: Performed By: #### C MP, LIPID, FT3, TSH, T4 #### [facility] [address] [place] [address] Dr. Lindsey Weiss Cholesterol.total/Ch olesterol in HDL [Mass ratio] 3.2 {ratio} Normal [facility] Comment on above: Performed By: #### C MP, LIPID, FT3, TSH, T4 #### [facility] [address] [place] [address] Dr. Lindsey Weiss HDL NORMAL > or = 60 mg/dl - LOW CARDIOVASCULAR RISK <40 mg/dl - HIGH CARDIOVASCULAR RISK Normal [facility] Comment on above: Performed By: #### C MP, LIPID, FT3, TSH, T4 #### [facility] [address] [place] [address] Dr. Lindsey Weiss LDL CALC NORMAL SEE BELOW Normal [facility] Comment on above: Result Comment: <100 mg/dl OPTIMAL 100 - 129 mg/dl NEAR OR ABOVE OPTIMAL 130 - 159 mg/dl BORDERLINE HIGH 160 - 189 mg/dl HIGH >190 mg/dl VERY HIGH Performed By: #### C MP, LIPID, FT3, TSH, T4 #### [facility] [address] [place] [address] Dr. Lindsey Weiss Triglyceride [Mass/Vol] 108 mg/dL Normal <=150 [facility] Comment on above: Performed By: #### C MP, LIPID, FT3, TSH, T4 #### [facility] [address] [place] [address] Dr. Lindsey Weiss VLDL CALC 21.6 mg/dL Normal [facility] Comment on above: Performed By: #### C MP, LIPID, FT3, TSH, T4 #### [facility] [address] [place] [address] Dr. Lindsey Weiss PROF 14(COMP METB)on 022 Albumin [Mass/Vol] 3.7 g/dL Normal 3.4-5.0 [facility] Comment on above: Performed By: #### C MP, LIPID, FT3, TSH, T4 #### [facility] [address] [place] [address] Dr. Lindsey Weiss Albumin/Globulin [Mass ratio] 0.9 {ratio} Normal [facility] Comment on above: Performed By: #### C MP, LIPID, FT3, TSH, T4 #### [facility] [address] [place] [address] Dr. Lindsey Weiss ALP [Catalytic activity/Vol] 171 U/L Critically high 46-116 [facility] Comment on above: Performed By: #### C MP, LIPID, FT3, TSH, T4 #### [facility] [address] [place] [address] Dr. Lindsey Weiss ALT [Catalytic activity/Vol] 35 U/L Normal 16-63 [facility] Comment on above: Performed By: #### C MP, LIPID, FT3, TSH, T4 #### [facility] [address] [place] [address] Dr. Lindsey Weiss Anion gap [Moles/Vol] 11.3 mmol/L Normal [facility] Comment on above: Performed By: #### C MP, LIPID, FT3, TSH, T4 #### [facility] [address] [place] [address] Dr. Lindsey Weiss AST [Catalytic activity/Vol] 27 U/L Normal 15-37 [facility] Comment on above: Performed By: #### C MP, LIPID, FT3, TSH, T4 #### [facility] [address] [place] [address] Dr. Lindsey Weiss Bilirubin [Mass/Vol] 0.6 mg/dL Normal 0.2-1.0 [facility] Comment on above: Performed By: #### C MP, LIPID, FT3, TSH, T4 #### [facility] [address] [place] [address] Dr. Lindsey Weiss Calcium [Mass/Vol] 9.4 mg/dL Normal 8.5-10.1 [facility] Comment on above: Performed By: #### C MP, LIPID, FT3, TSH, T4 #### [facility] [address] [place] [address] Dr. Lindsey Weiss Chloride [Moles/Vol] 102 mmol/L Normal 98-107 [facility] Comment on above: Performed By: #### C MP, LIPID, FT3, TSH, T4 #### [facility] [address] [address] [address] Lindsey Weiss CO2 [Moles/Vol] 30.1 mmol/L Normal 21.0-32.0 [facility] Comment on above: Performed By: #### C MP, LIPID, FT3, TSH, T4 #### [facility] [address] [address] [address] Lindsey Weiss Creatinine [Mass/Vol] 1.31 mg/dL Critically high 0.70-1.30 [facility] Comment on above: Performed By: #### C MP, LIPID, FT3, TSH, T4 #### [facility] [address] [address] [address] Lindsey Weiss EGFR-AF LIBYAN >60 Normal >=60 [facility] Comment on above: Performed By: #### C MP, LIPID, FT3, TSH, T4 #### [facility] [address] [address] [address] Lindsey Weiss EGFR-NON AF LIBYAN 52 mL/min/1.73m2 Critically low >=60 [facility] Comment on above: Performed By: #### C MP, LIPID, FT3, TSH, T4 #### [facility] [address] [address] [address] Lindsey Weiss Globulin (S) [Mass/Vol] 3.9 g/dL Normal [facility] Comment on above: Performed By: #### C MP, LIPID, FT3, TSH, T4 #### [facility] [address] [address] [address] Lindsey Weiss Glucose [Mass/Vol] 98 mg/dL Normal 74-106 [facility] Comment on above: Performed By: #### C MP, LIPID, FT3, TSH, T4 #### [facility] [address] [address] [address] Lindsey Weiss Potassium [Moles/Vol] 4.4 mmol/L Normal 3.5-5.1 [facility] Comment on above: Performed By: #### C MP, LIPID, FT3, TSH, T4 #### [facility] [address] [place] [address] Dr. Lindsey Weiss Protein [Mass/Vol] 7.6 g/dL Normal 6.1-8.2 [facility] Comment on above: Performed By: #### C MP, LIPID, FT3, TSH, T4 #### [facility] [address] [place] [address] Dr. Lindsey Weiss Sodium [Moles/Vol] 139 mmol/L Normal 136-145 [facility] Comment on above: Performed By: #### C MP, LIPID, FT3, TSH, T4 #### [facility] [address] [place] [address] Dr. Lindsey Weiss Urea nitrogen [Mass/Vol] 19.0 mg/dL Critically high 7.0-18.0 [facility] Comment on above: Performed By: #### C MP, LIPID, FT3, TSH, T4 #### [facility] [address] [place] [address] Dr. Lindsey Weiss Urea nitrogen/Creatinine [Mass ratio] 14.5 mg/mg Normal [facility] Comment on above: Performed By: #### C MP, LIPID, FT3, TSH, T4 #### [facility] [address] [place] [address] Dr. Lindsey Weiss T4on 03-15-2022 T4 [Mass/Vol] 9.30 ug/dL Normal 4.50-12.10 [facility] Comment on above: Performed By: #### C MP, LIPID, FT3, TSH, T4 #### [facility] [address] [place] [address] Dr. Lindsey Weiss TSHon 03-15-2022 TSH 0.013 uIU/mL Critically low 0.470-4.680 [facility] Comment on above: Performed By: #### C MP, LIPID, FT3, TSH, T4 #### [facility] [address] [place] [address] Dr. Lindsey Weiss TSH RANGE SEE BELOW Normal [facility] Comment on above: Result Comment: <0.3 4 UIU/ml HYPERTHYROID 0.34-5.60 UIU/ml EUTHYROID >5.60 UIU/ml HYPOTHYROID Performed By: #### C MP, LIPID, FT3, TSH, T4 #### [facility] [address] [address] [address] CHEST W IVCONon 1 CT CHEST W IVCON * * *Final Report* * * DATE OF EXAM: Sep 23 2021 8:54AM [facility] 0539 - CT CHEST W IVCON / [...] No abnormality in the imaged upper abdomen. Web Designer Developer (topogram) images: No additional findings. IMPRESSION: 1. [...] any questions regarding this interpretation, please call [phone]. If you are unable to reach us at the number above, please feel free to contact [facility] [phone]. [id number] CN Normal [facility] CT NECK SOFT TISSUE W IVCONo n 09-23-2021 CT NECK SOFT TISSUE W IVCON * * *Final Report* * * DATE OF EXAM: Sep 23 2021 8:54AM [facility] 0013 - CT NECK SOFT TISSUE W [...] any questions regarding this interpretation, please call [phone]. If you are unable to reach us at the number above, please feel free to contact [facility] at [phone]. [id number] CN Normal [facility] Comp Metabolic Panelon 09-23 Albumin [Mass/Vol] 4.4 g/dL Normal 3.9-4.9 [facility] ALP [Catalytic activity/Vol] 167 U/L High 38-113 [facility] ALT [Catalytic activity/Vol] 17 U/L Normal 10-54 [facility] Anion gap [Moles/Vol] 11 mmol/L Normal 9-18 [facility] AST [Catalytic activity/Vol] 21 U/L Normal 14-40 [facility] Bilirubin [Mass/Vol] 0.7 mg/dL Normal 0.2-1.3 [facility] Calcium [Mass/Vol] 10.4 mg/dL High 8.5-10.2 [facility] Chloride [Moles/Vol] 103 mmol/L Normal 97-105 [facility] CO2 [Moles/Vol] 25 mmol/L Normal 22-30 [facility] Creatinine [Mass/Vol] 1.29 mg/dL High 0.73-1.22 [facility] eGFR- Amer. >60 Normal [facility] eGFR-All Other Races [address] [facility] Comment on above: Result Comment: eGFR [...] GFR. Glucose [Mass/Vol] 104 mg/dL High 74-99 [facility] Comment on above: Result Comment: The [place] Diabetes Association (ADA) provides guidance for cutoff [...] Standards of Medical Care in Diabetes 2016, [place] [employer] Association. Diabetes Care. 2016.39(Suppl 1). Potassium [Moles/Vol] 4.1 mmol/L Normal 3.7-5.1 [facility] Protein [Mass/Vol] 7.4 g/dL Normal 6.3-8.0 [facility] Sodium [Moles/Vol] 139 mmol/L Normal 136-144 [facility] Urea nitrogen [Mass/Vol] 21 mg/dL Normal 9-24 [facility] Remote CBCDIF (for [facility] use o nly)on 09-23-2021 Abs Baso 0.03 k/uL Normal <0.11 [facility] Abs [place] 0.70 k/uL Normal <0.87 [facility] Abs Neut 3.11 k/uL Normal 1.45-7.50 [facility] Absolute nRBC <0.01 Normal <0.01 [facility] Basophils/100 WBC (Bld) 0.5 % Normal [facility] DTYPE Auto Diff Normal [facility] Eosinophils (Bld) [#/Vol] 0.21 10*3/uL Normal <0.46 [facility] Eosinophils/100 WBC (Bld) 3.7 % Normal [facility] Erythrocyte distribution width (RBC) [Ratio] 13.6 % Normal 11.5-15.0 [facility] Hematocrit (Bld) [Volume fraction] 34.2 % Low 39.0-51.0 [facility] Hemoglobin (Bld) [Mass/Vol] 11.6 g/dL Low 13.0-17.0 [facility] Lymphocytes (Bld) [#/Vol] 1.66 10*3/uL Normal 1.00-4.00 [facility] Lymphocytes/100 WBC (Bld) 29.0 % Normal [facility] MCH 29.4 pG Normal 26.0-34.0 [facility] MCHC (RBC) [Mass/Vol] 33.9 g/dL Normal 30.5-36.0 [facility] MCV (RBC) [Entitic vol] 86.6 fL Normal 80.0-100.0 [facility] Monocytes/100 WBC (Bld) 12.2 % Normal [facility] Neutrophils/100 WBC (Bld) 54.6 % Normal [facility] NRBCs 0.0 /100 WBC Normal 0 [facility] Platelet mean volume (Bld) [Entitic vol] 9.8 fL Normal 9.0-12.7 [facility] Platelets (Bld) [#/Vol] 163 10*3/uL Normal 150-400 [facility] RBC (Bld) [#/Vol] 3.95 10*6/uL Low 4.20-6.00 [facility] WBC (Bld) [#/Vol] 5.73 10*3/uL Normal 3.70-11.00 [facility] CNPNon 09-06-2021 CNPN Telephone (PETSAN) HOANG AQUINO ([id number]) 1935 M Date Time Provider Department 09/06/21 [...] lymph node [R59.9] Order(s):CT CHEST W IVCON [[id number]] Order #: [id number] FUTURE iv contrast (will be provided with [...] Encounter Status:Closed by KAYLAH WILHELM on 09/06/21 [facility] Encounters Encounter Date Encounter Type Care Provider Facility Start: 06-10-2024 End: 06-10-2024 ambulatory [facility] Start: 11-22-2023 End: 11-22-2023 ambulatory LILY [facility] Start: 01-19-2023 End: 01-19-2023 ambulatory BETTY CARRERA Facility:[facility] Start: 03-15-2022 End: 03-16-[address] TIM HEARD . Facility:[facility] Procedures Date Procedure Procedure Detail Performing Clinician Start: 03-15-2022 PSA screening BETTY CARRERA Comment on above: Performed By: #### P [facility] #### [facility] [address] [place] [address] Dr. 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 where he underwent pericardiocentesis. This did [...] is significantly elevated. He ran out of [employer]. Review of Systems Cardiovascular: Negative for chest [...] tablet TAKE TWO (more content not included)... [facility] 11-22-2023 Note Trivial pericardial effusion on recent echo [facility] 11-22-2023 Note Remains on eliquis a nticoagulation and denied any bleeding tendencies Continue metoprolol 100 mg - rate is well controlled [facility] 11-22-2023 Note Coronary artery dise ase is stable Continue GDMT- ASA, lipitor, metoprolol continue risk factor modifications- heart healthy diet, regular exercise as tolerated and continue all medications. [facility] 11-22-2023 Note Continue lipitor [facility] 11-22-2023 Note Hypertension is unco ntrolled in [...] call him next week to check b/p [facility] 11-22-2023 Note No concerning sympto ms today Continue ASA and metoprolol [facility] 11-22-2023 Note No concerning sympto ms today Will monitor [facility] 11-22-2023 Note [facility] CARDIOLOGY PROGR ESS NOTE [...] developed pericardial effusion and was transferred to [facility] where he underwent pericardiocentesis. This did [...] LDL 75, HD (more content not included)... [facility] 11-22-2023 Note Patient here for 6 m o follow up CAD, PAF, and hypertension. Had echo in May 2023 after last apt. Denies chest pain, SOB, palpitations, and bleeding on Eliquis. Review of Systems Musculoskeletal: Positive for arthritis and muscle weakness. All other systems reviewed and are negative. [facility] 01-19-2023 Note OPERATIVE NOTE OPERATION DATE: 01/19/2023 [...] ensuring mobility, phacoemulsification was performed in a [id number]-type fashion. After all nuclear material had been [...] the following day for postoperative care. [facility] 01-19-2023 Note PREOPERATIVE HISTORY AND PHYSICAL [...] go forward with his elective procedure. [facility] 09-23-2021 Note HNO ID: [id number] Author: RT Domo(R) Service: ? Author Type: [...] RT Domo(R) September 23, 2021 8:50 AM [facility] Summary Purpose Family History No Family History Records FoundNo Family History Records FoundNo Family History Records Found Advance Directives No Advanced Directives Records FoundNo Advanced Directives Records FoundNo Advanced Directives Records Found Additional Source Comments (unrecognized sect ion and content) No Status Records FoundNo Status Records FoundNo Status Records Found INFORMATION SOURCE (unrecogn ized section and content) DATE CREATED AUTHOR 12/24/2021 [facility] DATE CREATED AUTHOR 'S ORGANIZ ATION 01/27/[address] [facility] DATE CREATED AUTHOR 'S ORGANIZ ATION 06/27/2024 [facility] FOR RECORDS PERTAINING TO PATIENTS WHO ARE [...] BE BASED ON THE PRIMARY CLINICAL RECORDS. [facility] [employer] [facility]. provides no warranty or guarantee of the accuracy or completeness of information in this document.
--- OUTSIDE RECORDS SUMMARY | 2024-12-18 16:20 | XMS_ITS | CCD ---
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 Patient informed. Normal [facility] Office Visiton 06-10-2024 Follow-up visit [id number] Hoang Aquino 1935 M Date Provider Department Center 06/10/2024 REAL PAGAN [facility] Family History Problem Relation Age of Onset Coronary artery disease Son Atrial fibrillation Son Hypertension Son Family Status - Relation Status Age at Son Other Level of Service:82001 DE OFFICE/OUTPATIENT ESTABLISHED MOD MDM 30 MIN Normal [facility] 37on 11-22-2023 39 Increase cardura to 4 mg daily, monitor b/p and goal is less than 130/80 Call office for any concerns- lightheadedness, dizziness, falling, headaches or any concerns. Normal [facility] Office Visiton 11-22-2023 Follow-up visit [id number] Hoang qAuino 1935 M Date Provider Department Center 11/22/2023 LILY REDMOND [facility] Family History Problem Relation Age of Onset Coronary artery disease Son Atrial fibrillation Son Hypertension Son Family Status - Relation Status Age at Son Other Level of Service:29237 DE OFFICE/OUTPATIENT ESTABLISHED MOD MDM 30 MIN Normal [facility] CBC AUTO DIFFon 03-15-2022 BASO # 0.0 103/ul Normal 0.0-0.1 [facility] Comment on above: Performed By: #### C BC #### [facility] [address] [address] [address] Lindsey Weiss Basophils/100 WBC (Bld) 0.5 % Normal 0.2-2.0 [facility] Comment on above: Performed By: #### C BC #### [facility] [address] [place] [address] Dr. Lindsey Weiss EO # 0.2 103/ul Normal 0.0-0.7 [facility] Comment on above: Performed By: #### C BC #### [facility] [address] [address] [address] Lindsey Weiss Eosinophils/100 WBC (Bld) 2.1 % Normal 0.9-7.0 [facility] Comment on above: Performed By: #### C BC #### [facility] [address] [place] [address] Dr. Lindsey Weiss Erythrocyte distribution width (RBC) [Ratio] 13.4 % Normal 11.0-15.0 [facility] Comment on above: Performed By: #### C BC #### [facility] [address] [place] [address] Dr. Lindsey Weiss Hematocrit (Bld) [Volume fraction] 34.1 % Critically low 42.0-54.0 [facility] Comment on above: Performed By: #### C BC #### [facility] [address] [place] [address] Dr. Lindsey Weiss Hemoglobin (Bld) [Mass/Vol] 11.2 g/dL Critically low 14.0-18.0 [facility] Comment on above: Performed By: #### C BC #### [facility] [address] [place] [address] Dr. Lindsey Weiss IG # 0.03 10e3/ul Normal 0.00-0.03 [facility] Comment on above: Performed By: #### C BC #### [facility] [address] [place] [address] Dr. Lindsey Weiss IG % 0.4 % Normal 0.0-0.5 [facility] Comment on above: Performed By: #### C BC #### [facility] [address] [place] [address] Dr. Lindsey Weiss LYMPH # 1.9 103/ul Normal 1.2-3.8 [facility] Comment on above: Performed By: #### C BC #### [facility] [address] [place] [address] Dr. Lindsey Weiss Lymphocytes/100 WBC (Bld) 23.8 % Normal 20.5-60.0 [facility] Comment on above: Performed By: #### C BC #### [facility] [address] [place] [address] Dr. Lindsey Weiss MANUAL DIFF REQ NO Normal [facility] Comment on above: Performed By: #### C BC #### [facility] [address] [place] [address] Dr. Lindsey Weiss MCH (RBC) [Entitic mass] 29.6 pg Normal 25.9-34.0 [facility] Comment on above: Performed By: #### C BC #### [facility] [address] [place] [address] Dr. Lindsey Weiss MCHC (RBC) [Mass/Vol] 32.8 g/dL Normal 29.9-35.2 [facility] Comment on above: Performed By: #### C BC #### [facility] [address] [place] [address] Dr. Lindsey Weiss MCV (RBC) [Entitic vol] 90.2 fL Normal 80.0-94.0 [facility] Comment on above: Performed By: #### C BC #### [facility] [address] [place] [address] Dr. Lindsey Weiss MONO # 0.6 103/ul Normal 0.3-0.8 [facility] Comment on above: Performed By: #### C BC #### [facility] [address] [place] [address] Dr. Lindsey Weiss Monocytes/100 WBC (Bld) 8.0 % Normal 1.7-12.0 [facility] Comment on above: Performed By: #### C BC #### [facility] [address] [place] [address] Dr. Lindsey Weiss NEUT # 5.1 103/ul Normal 1.4-6.5 [facility] Comment on above: Performed By: #### C BC #### [facility] [address] [place] [address] Dr. Lindsey Weiss Neutrophils/100 WBC (Bld) 65.2 % Normal 43.0-75.0 [facility] Comment on above: Performed By: #### C BC #### [facility] [address] [place] [address] Dr. Lindsey Weiss Platelet mean volume (Bld) [Entitic vol] 9.2 fL Critically low 9.5-13.5 [facility] Comment on above: Performed By: #### C BC #### [facility] [address] [place] [address] Dr. Lindsey Weiss PLT 209 103/ul Normal 150-450 [facility] Comment on above: Performed By: #### C BC #### [facility] [address] [place] [address] Dr. Lindsey Weiss RBC 3.78 106/ul Critically low 4.70-6.10 [facility] Comment on above: Performed By: #### C BC #### [facility] [address] [place] [address] Dr. Lindsey Weiss WBC 7.8 103/ul Normal 4.0-11.0 [facility] Comment on above: Performed By: #### C BC #### [facility] [address] [place] [address] Dr. Lindsey Weiss FREE T3on 03-15-2022 FREE T3 3.29 pg/mlL Normal 2.18-3.98 [facility] Comment on above: Performed By: #### C MP, LIPID, FT3, TSH, T4 #### [facility] [address] [address] [address] Lindsey Weiss GLYCOHEMOGLOBIN A1Con 2021 ADA RECOMMENDATION SEE BELOW Normal [facility] Comment on above: Result Comment: ADA RECOMMENDED LIMIT 4.0 - 6.0 ADA THERAPEUTIC TARGET < 7.0 ACTION SUGGESTED > 7.0 Performed By: #### A 1C #### [facility] [address] [place] [address] Dr. Lindsey Weiss Glucose [Mass/Vol] 105 mg/dL Normal [facility] Comment on above: Performed By: #### A 1C #### [facility] [address] [place] [address] Dr. Lindsey Weiss HbA1c (Bld) [Mass fraction] 5.3 % Normal 4.5-6.2 [facility] Comment on above: Performed By: #### A 1C #### [facility] [address] [place] [address] Dr. Lindsey Weiss LIPID PROFILEon 03-15-2022 CHOL-HDL RATIO NORM SEE BELOW Normal [facility] Comment on above: Result Comment: 3.3 - 4.4 LOW RISK 4.4 - 7.1 AVERAGE RISK 7.1 - 11.0 MODERATE RISK >11.0 HIGH RISK Performed By: #### C MP, LIPID, FT3, TSH, T4 #### [facility] [address] [place] [address] Dr. Lindsey Weiss Cholesterol [Mass/Vol] 126 mg/dL Normal <=200 [facility] Comment on above: Performed By: #### C MP, LIPID, FT3, TSH, T4 #### [facility] [address] [place] [address] Dr. Lindsey Weiss Cholesterol in HDL [Mass/Vol] 39 mg/dL Critically low 40-60 [facility] Comment on above: Performed By: #### C MP, LIPID, FT3, TSH, T4 #### [facility] [address] [place] [address] Dr. Lindsey Weiss Cholesterol in LDL [Mass/Vol] 65.4 mg/dL Normal [facility] Comment on above: Performed By: #### C MP, LIPID, FT3, TSH, T4 #### [facility] [address] [place] [address] Dr. Lindsey Weiss Cholesterol.total/Ch olesterol in HDL [Mass ratio] 3.2 {ratio} Normal [facility] Comment on above: Performed By: #### C MP, LIPID, FT3, TSH, T4 #### [facility] [address] [place] [address] Dr. Lindsey Weiss HDL NORMAL > or = 60 mg/dl - LOW CARDIOVASCULAR RISK <40 mg/dl - HIGH CARDIOVASCULAR RISK Normal [facility] Comment on above: Performed By: #### C MP, LIPID, FT3, TSH, T4 #### [facility] [address] [place] [address] Dr. Lindsey Weiss LDL CALC NORMAL SEE BELOW Normal [facility] Comment on above: Result Comment: <100 mg/dl OPTIMAL 100 - 129 mg/dl NEAR OR ABOVE OPTIMAL 130 - 159 mg/dl BORDERLINE HIGH 160 - 189 mg/dl HIGH >190 mg/dl VERY HIGH Performed By: #### C MP, LIPID, FT3, TSH, T4 #### [facility] [address] [place] [address] Dr. Lindsey Weiss Triglyceride [Mass/Vol] 108 mg/dL Normal <=150 [facility] Comment on above: Performed By: #### C MP, LIPID, FT3, TSH, T4 #### [facility] [address] [place] [address] Dr. Lindsey Weiss VLDL CALC 21.6 mg/dL Normal [facility] Comment on above: Performed By: #### C MP, LIPID, FT3, TSH, T4 #### [facility] [address] [place] [address] Dr. Lindsey Weiss PROF 14(COMP METB)on 022 Albumin [Mass/Vol] 3.7 g/dL Normal 3.4-5.0 [facility] Comment on above: Performed By: #### C MP, LIPID, FT3, TSH, T4 #### [facility] [address] [place] [address] Dr. Lindsey Weiss Albumin/Globulin [Mass ratio] 0.9 {ratio} Normal [facility] Comment on above: Performed By: #### C MP, LIPID, FT3, TSH, T4 #### [facility] [address] [place] [address] Dr. Lindsey Weiss ALP [Catalytic activity/Vol] 171 U/L Critically high 46-116 [facility] Comment on above: Performed By: #### C MP, LIPID, FT3, TSH, T4 #### [facility] [address] [place] [address] Dr. Lindsey Weiss ALT [Catalytic activity/Vol] 35 U/L Normal 16-63 [facility] Comment on above: Performed By: #### C MP, LIPID, FT3, TSH, T4 #### [facility] [address] [place] [address] Dr. Lindsey Weiss Anion gap [Moles/Vol] 11.3 mmol/L Normal [facility] Comment on above: Performed By: #### C MP, LIPID, FT3, TSH, T4 #### [facility] [address] [place] [address] Dr. Lindsey Weiss AST [Catalytic activity/Vol] 27 U/L Normal 15-37 [facility] Comment on above: Performed By: #### C MP, LIPID, FT3, TSH, T4 #### [facility] [address] [place] [address] Dr. Lindsey Weiss Bilirubin [Mass/Vol] 0.6 mg/dL Normal 0.2-1.0 [facility] Comment on above: Performed By: #### C MP, LIPID, FT3, TSH, T4 #### [facility] [address] [place] [address] Dr. Lindsey Weiss Calcium [Mass/Vol] 9.4 mg/dL Normal 8.5-10.1 [facility] Comment on above: Performed By: #### C MP, LIPID, FT3, TSH, T4 #### [facility] [address] [place] [address] Dr. Lindsey Weiss Chloride [Moles/Vol] 102 mmol/L Normal 98-107 [facility] Comment on above: Performed By: #### C MP, LIPID, FT3, TSH, T4 #### [facility] [address] [address] [address] Lindsey Weiss CO2 [Moles/Vol] 30.1 mmol/L Normal 21.0-32.0 [facility] Comment on above: Performed By: #### C MP, LIPID, FT3, TSH, T4 #### [facility] [address] [address] [address] Lindsey Weiss Creatinine [Mass/Vol] 1.31 mg/dL Critically high 0.70-1.30 [facility] Comment on above: Performed By: #### C MP, LIPID, FT3, TSH, T4 #### [facility] [address] [address] [address] Lindsey Weiss EGFR-AF CROATIAN >60 Normal >=60 [facility] Comment on above: Performed By: #### C MP, LIPID, FT3, TSH, T4 #### [facility] [address] [address] [address] Lindsey Weiss EGFR-NON AF CROATIAN 52 mL/min/1.73m2 Critically low >=60 [facility] Comment on above: Performed By: #### C MP, LIPID, FT3, TSH, T4 #### [facility] [address] [address] [address] Lindsey Weiss Globulin (S) [Mass/Vol] 3.9 g/dL Normal [facility] Comment on above: Performed By: #### C MP, LIPID, FT3, TSH, T4 #### [facility] [address] [address] [address] Lindsey Weiss Glucose [Mass/Vol] 98 mg/dL Normal 74-106 [facility] Comment on above: Performed By: #### C MP, LIPID, FT3, TSH, T4 #### [facility] [address] [address] [address] Lindsey Weiss Potassium [Moles/Vol] 4.4 mmol/L Normal 3.5-5.1 [facility] Comment on above: Performed By: #### C MP, LIPID, FT3, TSH, T4 #### [facility] [address] [place] [address] Dr. Lindsey Weiss Protein [Mass/Vol] 7.6 g/dL Normal 6.1-8.2 [facility] Comment on above: Performed By: #### C MP, LIPID, FT3, TSH, T4 #### [facility] [address] [place] [address] Dr. Lindsey Weiss Sodium [Moles/Vol] 139 mmol/L Normal 136-145 [facility] Comment on above: Performed By: #### C MP, LIPID, FT3, TSH, T4 #### [facility] [address] [place] [address] Dr. Lindsey Weiss Urea nitrogen [Mass/Vol] 19.0 mg/dL Critically high 7.0-18.0 [facility] Comment on above: Performed By: #### C MP, LIPID, FT3, TSH, T4 #### [facility] [address] [place] [address] Dr. Lindsey Weiss Urea nitrogen/Creatinine [Mass ratio] 14.5 mg/mg Normal [facility] Comment on above: Performed By: #### C MP, LIPID, FT3, TSH, T4 #### [facility] [address] [place] [address] Dr. Lindsey Weiss T4on 03-15-2022 T4 [Mass/Vol] 9.30 ug/dL Normal 4.50-12.10 [facility] Comment on above: Performed By: #### C MP, LIPID, FT3, TSH, T4 #### [facility] [address] [place] [address] Dr. Lindsey Weiss TSHon 03-15-2022 TSH 0.013 uIU/mL Critically low 0.470-4.680 [facility] Comment on above: Performed By: #### C MP, LIPID, FT3, TSH, T4 #### [facility] [address] [place] [address] Dr. Lindsey Weiss TSH RANGE SEE BELOW Normal [facility] Comment on above: Result Comment: <0.3 4 UIU/ml HYPERTHYROID 0.34-5.60 UIU/ml EUTHYROID >5.60 UIU/ml HYPOTHYROID Performed By: #### C MP, LIPID, FT3, TSH, T4 #### [facility] [address] [address] [address] CHEST W IVCONon 1 CT CHEST W IVCON * * *Final Report* * * DATE OF EXAM: Sep 23 2021 8:54AM [facility] 0539 - CT CHEST W IVCON [...] No abnormality in the imaged upper abdomen. Environmental Health Physician (topogram) images: No additional findings. IMPRESSION: 1. [...] any questions regarding this interpretation, please call [phone]. If you are unable to reach us at the number above, please feel free to contact [facility] at [phone]. [id number] CN Normal [facility] CT NECK SOFT TISSUE W IVCONo n 09-23-2021 CT NECK SOFT TISSUE W IVCON * * *Final Report* * * DATE OF EXAM: Sep 23 2021 8:54AM [facility] 0013 - CT NECK SOFT TISSUE [...] any questions regarding this interpretation, please call [phone]. If you are unable to reach us at the number above, please feel free to contact [facility] at [phone]. [id number] CN Normal [facility] Comp Metabolic Panelon 09-23 Albumin [Mass/Vol] 4.4 g/dL Normal 3.9-4.9 [facility] ALP [Catalytic activity/Vol] 167 U/L High 38-113 [facility] ALT [Catalytic activity/Vol] 17 U/L Normal 10-54 [facility] Anion gap [Moles/Vol] 11 mmol/L Normal 9-18 [facility] AST [Catalytic activity/Vol] 21 U/L Normal 14-40 [facility] Bilirubin [Mass/Vol] 0.7 mg/dL Normal 0.2-1.3 [facility] Calcium [Mass/Vol] 10.4 mg/dL High 8.5-10.2 [facility] Chloride [Moles/Vol] 103 mmol/L Normal 97-105 [facility] CO2 [Moles/Vol] 25 mmol/L Normal 22-30 [facility] Creatinine [Mass/Vol] 1.29 mg/dL High 0.73-1.22 [facility] eGFR- Amer. >60 Normal [facility] eGFR-All Other Races [address] [facility] Comment on above: Result Comment: eGFR (Estimated [...] GFR. Glucose [Mass/Vol] 104 mg/dL High 74-99 [facility] Comment on above: Result Comment: The [place] Diabetes Association (ADA) provides guidance for cutoff [...] Standards of Medical Care in Diabetes 2016, [place] [employer]. Diabetes Care. 2016.39(Suppl 1). Potassium [Moles/Vol] 4.1 mmol/L Normal 3.7-5.1 [facility] Protein [Mass/Vol] 7.4 g/dL Normal 6.3-8.0 [facility] Sodium [Moles/Vol] 139 mmol/L Normal 136-144 [facility] Urea nitrogen [Mass/Vol] 21 mg/dL Normal 9-24 [facility] Remote CBCDIF (for [facility] use o nly)on 09-23-2021 Abs Baso 0.03 k/uL Normal <0.11 [facility] Abs Yancey 0.70 k/uL Normal <0.87 [facility] Abs Neut 3.11 k/uL Normal 1.45-7.50 [facility] Absolute nRBC <0.01 Normal <0.01 [facility] Basophils/100 WBC (Bld) 0.5 % Normal [facility] DTYPE Auto Diff Normal [facility] Eosinophils (Bld) [#/Vol] 0.21 10*3/uL Normal <0.46 [facility] Eosinophils/100 WBC (Bld) 3.7 % Normal [facility] Erythrocyte distribution width (RBC) [Ratio] 13.6 % Normal 11.5-15.0 [facility] Hematocrit (Bld) [Volume fraction] 34.2 % Low 39.0-51.0 [facility] Hemoglobin (Bld) [Mass/Vol] 11.6 g/dL Low 13.0-17.0 [facility] Lymphocytes (Bld) [#/Vol] 1.66 10*3/uL Normal 1.00-4.00 [facility] Lymphocytes/100 WBC (Bld) 29.0 % Normal [facility] MCH 29.4 pG Normal 26.0-34.0 [facility] MCHC (RBC) [Mass/Vol] 33.9 g/dL Normal 30.5-36.0 [facility] MCV (RBC) [Entitic vol] 86.6 fL Normal 80.0-100.0 [facility] Monocytes/100 WBC (Bld) 12.2 % Normal [facility] Neutrophils/100 WBC (Bld) 54.6 % Normal [facility] NRBCs 0.0 /100 WBC Normal 0 [facility] Platelet mean volume (Bld) [Entitic vol] 9.8 fL Normal 9.0-12.7 [facility] Platelets (Bld) [#/Vol] 163 10*3/uL Normal 150-400 [facility] RBC (Bld) [#/Vol] 3.95 10*6/uL Low 4.20-6.00 [facility] WBC (Bld) [#/Vol] 5.73 10*3/uL Normal 3.70-11.00 [facility] CNPNon 09-06-2021 CNPN Telephone (PETSAN) HOANG AQUINO ([id number]) 1935 M Date Time Provider Department 09/06/21 [...] lymph node [R59.9] Order(s):CT CHEST W IVCON [[id number]] Order #: [id number] FUTURE iv contrast (will be provided with [...] Encounter Status:Closed by KAYLAH WILHELM on 09/06/21 [facility] Encounters Encounter Date Encounter Type Care Provider Facility Start: 06-10-2024 End: 06-10-2024 ambulatory [facility] Start: 11-22-2023 End: 11-22-2023 ambulatory LILY [facility] Start: 01-19-2023 End: 01-19-2023 ambulatory BETTY CARRERA Facility:[facility] Start: 03-15-2022 End: 03-16-[address] TIM HEARD . Facility:[facility] Procedures Date Procedure Procedure Detail Performing Clinician Start: 03-15-2022 PSA screening BETTY CARRERA Comment on above: Performed By: #### [facility] #### [facility] [address] [place] [address] Dr. 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 This did [...] is significantly elevated. He ran out of [employer]. Review of Systems Cardiovascular: Negative for chest [...] tablet TAKE TWO (more content not included)... [facility] 11-22-2023 Note Trivial pericardial effusion on recent echo [facility] 11-22-2023 Note Remains on eliquis a nticoagulation and denied any bleeding tendencies Continue metoprolol 100 mg - rate is well controlled [facility] 11-22-2023 Note Coronary artery dise ase is stable Continue GDMT- ASA, lipitor, metoprolol continue risk factor modifications- heart healthy diet, regular exercise as tolerated and continue all medications. [facility] 11-22-2023 Note Continue lipitor [facility] 11-22-2023 Note Hypertension is unco [...] call him next week to check b/p [facility] 11-22-2023 Note No concerning sympto ms today Continue ASA and metoprolol [facility] 11-22-2023 Note No concerning sympto ms today Will monitor [facility] 11-22-2023 Note [facility] CARDIOLOGY PROGR ESS NOTE [...] developed pericardial effusion and was transferred to [facility] where he underwent pericardiocentesis. This did [...] LDL 75, HD (more content not included)... [facility] 11-22-2023 Note Patient here for 6 m o follow up CAD, PAF, and hypertension. Had echo in May 2023 after last apt. Denies chest pain, SOB, palpitations, and bleeding on Eliquis. Review of Systems Musculoskeletal: Positive for arthritis and muscle weakness. All other systems reviewed and are negative. [facility] 01-19-2023 Note OPERATIVE NOTE OPERATION DATE: 01/19/2023 [...] ensuring mobility, phacoemulsification was performed in a [id number]-type fashion. After all nuclear material had been [...] the following day for postoperative care. [facility] 01-19-2023 Note PREOPERATIVE HISTORY AND PHYSICAL Date:01/18/2023 [...] go forward with his elective procedure. [facility] 09-23-2021 Note HNO ID: [id number] Author: RT Domo(R) Service: ? Author Type: [...] RT Domo(R) September 23, 2021 8:50 AM [facility] Summary Purpose Family History No Family History Records FoundNo Family History Records FoundNo Family History Records Found Advance Directives No Advanced Directives Records FoundNo Advanced Directives Records FoundNo Advanced Directives Records Found Additional Source Comments (unrecognized sect ion and content) No Status Records FoundNo Status Records FoundNo Status Records Found INFORMATION SOURCE (unrecogn ized section and content) DATE CREATED AUTHOR 12/24/2021 [facility] DATE CREATED AUTHOR 'S ORGANIZ ATION 01/27/2023 [facility] DATE CREATED AUTHOR 'S ORGANIZ ATION 06/27/2024 [facility] FOR RECORDS PERTAINING TO PATIENTS WHO ARE [...] BE BASED ON THE PRIMARY CLINICAL RECORDS. [facility] [facility]. provides no warranty or guarantee of the accuracy or completeness of information in this document.
== END 2024-12-18 15:56 | disposition home or self-care (01) ==
LOC: LAB 15:55
PROVIDERS: PCP Family Medicine; Visit Provider Otolaryngology
DX: H92.11 Otorrhea, right ear (principal)
CPT/HCPCS: 87070; 87150; 87186

== ENCOUNTER 2025-08-05 12:39 | Outpatient (OUT) | payer MEDICARE, BC, SELFPAY ==
--- OUTSIDE RECORDS SUMMARY | 2025-08-05 12:40 | XMS_ITS | Clinical Summary ---
Author Organization [facility] Healthcare Address [address] [place] [address] Care Team Providers Care Livestock Trader Name Role Phone Rory Smith MD Primary Care Provider [phone] Allergies No known active allergies Medications apixaban (Eliquis) 2.5 MG tablet Take 2.5 mg by mouth every 12 (twelve) hours 06/10/2024 Active atorvastatin (Lipitor) 40 MG tablet Take 40 mg by mouth Daily Active cetirizine (ZyrTEC) 10 MG tablet Take 10 mg by mouth Daily 10/28/2024 Active Diclofenac 35 MG capsule every 8 (eight) hours Active dicyclomine (Bentyl) 20 MG tablet TAKE ONE TABLET BY MOUTH THREE TIMES A DAY FOR 30 DAYS Active doxazosin (Cardura) 4 MG tablet Take 6 mg by mouth 06/10/2024 Active FeroSul 325 (65 Fe) MG tablet Take 1 tablet by mouth in the morning and 1 tablet before bedtime. 11/25/2024 Active hyoscyamine (Levsin) 0.[address] ONE TABLET UNDER TONGUE AND ALLOW TO DISSOLVE TWICE A DAY ( IN THE MORNING AND AT BEDTIME ) 01/11/2024 Active levothyroxine (Synthroid, Levoxyl) 112 MCG tablet TAKE ONE TABLET BY MOUTH ONCE DAILY IN THE MORNING ON AN EMPTY STOMACH 12/02/2024 Active metoprolol succinate XL (Toprol-XL) 100 MG 24 hr tablet TAKE ONE TABLET BY MOUTH DAILY 90 08/29/2024 Active Active Problems Problem Noted Date Diagnosed Date Chronic myringitis, right ear 12/18/2024 Disc displacement, lumbar 12/18/2024 Lumbar radiculopathy 12/18/2024 Malignant neoplasm metastatic to lymph node of n [place] 12/18/2024 Chronic pharyngitis 12/18/2024 Otorrhea of right ear 12/18/2024 Perforation of tympanic membrane 12/18/2024 Right leg pain 12/18/2024 Mild aortic valve regurgitation 11/22/2023 Mild mitral valve regurgitation 11/22/2023 Other chcf (current) drug therapy Other specified abnormal findings of blood chemi stry 06/06/2023 Head and neck cancer 12/19/2022 Hypertensive disorder 12/19/2022 Paroxysmal atrial fibrillation 12/19/2022 Hypothyroidism 10/30/2019 Pericardial effusion ([facility]) 10/30/2019 Nasopharyngeal carcinoma 10/01/2018 Moderate dehydration 05/30/2018 Coronary atherosclerosis 04/12/2013 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 Benign essential hypertension 04/08/2013 Benign neoplasm of colon 04/08/2013 Chest pain 04/08/2013 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 Hyperlipidemia 04/08/2013 Impacted cerumen 04/08/2013 Irritable bowel syndrome 04/08/2013 Kidney stone 04/08/2013 Osteoarthritis 04/08/2013 Sciatica 04/08/2013 Family History Relation Name Status Comments Father Mother Social History Tobacco Use Types Packs/Day Years Used Date Smoking Tobacco: Never Smokeless Tobacco: Never Tobacco Cessation:Counseling Given: Not Answered Alcohol Use Standard Drinks/Week Comments Not Currently 0 (1 standard drink = 0.6 oz pur e alcohol) Sex and Gender Information Value Date Recorded Sex Assigned at Not on file Legal Sex Male 8:35 PM EDT Gender Identity Not on file Sexual Orientation Not on file Last Filed Vital Signs Vital Sign Reading Time Taken Comments Blood Pressure 156/71 12/18/2024 1:05 PM EST Pulse 61 12/18/2024 1:05 PM EST Temperature - - Respiratory Rate - - Oxygen Saturation - - Inhaled Oxygen Concentration - - Weight 74.4 kg (164 lb) 12/18/2024 1:05 PM EST Height 167.6 cm (5' 6 ) 12/18/2024 1:05 PM EST Body Mass Index 26.47 12/18/2024 1:05 PM EST Plan of Treatment Health Maintenance Due Date Last Done Comments Pneumococcal Vaccine: 65+ Years (1 of 1 - PCV) 987 Influenza Vaccine (#1) 2025 Insurance MEDICARE [facility] Care Teams Livestock Trader Relationship Specialty Start Date End Date Rory Smith MD PCP - General Family Medicine 12/18/24
--- OUTSIDE RECORDS SUMMARY | 2025-08-05 12:41 | XMS_ITS | Clinical Summary ---
Author Organization [facility] Address [address] [place] [address] Care Team Providers Care Sleeve Wheel Maker Name Role Phone Rory Smith MD Primary Care Provider [phone] Issa Mortensen DO Unavailable [phone] Dano Ontiveros MD Unavailable Jami Uriostegui Unavailable Unavailable Allergies No known active allergies Medications diclofenac, EC, (VOLTAREN) 75 mg EC tablet 8 Active iv contrast (will be provided with radiology [...] in the CT contrast administration guidelines link. 1 Each 9 Active aspirin 81 mg chewable tablet Take 1 tablet by mouth once daily. 30 tablet 2 9 Active atorvastatin (LIPITOR) 40 mg tablet Take 1 tablet by mouth daily at bedtime. 30 tablet 2 9 Active levothyroxine (SYNTHROID) 75 mcg tablet Take 1 tablet by mouth DAILY (6 AM). 30 tablet 1 9 Active metoprolol succinate ER (TOPROL XL) 25 mg 24 hr tablet Take 1 tablet by mouth once daily. 30 tablet 2 9 Active amLODIPine (NORVASC) 10 mg tablet 0 Active apixaban (ELIQUIS) 2.5 mg tab tab(s) Eliquis 2.5 mg tablet Take 1 tablet twice a day by oral route. 0 Active liothyronine (CYTOMEL) 5 mcg tablet q 24 HR. 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 Moderate dehydration 05/30/2018 Head and neck cancer Resolved Problems Problem Noted Date Diagnosed Date Resolved Date Pericardial effusion 10/15/2019 019 Family History Medical History Relation Comments Cancer Brother Prostate cancer Hypertension Father Heart disease Mother Relation Status Comments Brother Alive Father Mother (Age 95) Social History Tobacco Use Types Packs/Day Years Used Date Smoking Tobacco: Former Cigarettes 1 50 0 03/16/1946 - 03/16/1998 Smokeless Tobacco: Never Alcohol Use Standard Drinks/Week Comments Yes 0 (1 standard drink = 0.6 oz pur e alcohol) occ beer PHQ-2 Answer Date Recorded PHQ2 Score 0 10/15/2019 Area Deprivation Index Answer Date Matheus rded National Score (1-100), lower number is lower ri sk Not on file 10/29/2020 State Score (1-10), lower number is lower risk N ot on file 10/29/2020 Data from: https://www.neighborhoodatlas.medicine.[facility].edu/. Last address used for calculation Not on file 10/29/2020 Sex and Gender Information Value Date Recorded Sex Assigned at Not on file Legal Sex Male 3:02 PM EDT Gender Identity Not on file Sexual Orientation Not on file Occupation Industry Job Start Date Job End Date retired Not on file Not on file Not on file Last Filed Vital Signs Vital Sign Reading Time Taken Comments Blood Pressure 142/96 10/01/2020 11:01 AM EST Pulse 84 10/01/2020 11:01 AM EST Temperature 36.3 C (97.4 F) 10/01/2020 11:01 AM EST Respiratory Rate 18 10/01/2020 11:0 1 AM EST Oxygen Saturation 97% 10/01/2020 11: 01 AM EST Inhaled Oxygen Concentration - - Weight 71.6 kg (157 lb 12.8 oz) 020 11:01 AM EST Height 167.6 cm (5' 5.98 ) 10/01/2020 1 1:01 AM EST Body Mass Index 25.48 10/01/2020 11:01 AM EST Plan of Treatment Health Maintenance Due Date Last Done Comments Anxiety Screening 1953 Depression Screening 1953 DTaP,Tdap,Td Vaccine (1 - Tdap) 1956 Pneumococcal Vaccine: 50+ (1 of 1 - PCV) 1987 Shingrix Vaccine (1 of 2) 1987 RSV Vaccine (1 - 1-dose 75+ series) 2012 Diabetes Screening 09/23/2024 09/23/2021, 1 12/22/2018, 10/18/2019, Additional history exists Advance Directive Discussion 11/20/2024 Influenza Vaccine (#1) 2025 Procedures Procedure Name Priority Date/Time Associated Diagnosis Comments COMPREHENSIVE METABOLIC PANEL Routine 09/23/2021 7:55 AM EDT Head and neck cancer (HCC) Malignant neoplasm of nasopharynx (HCC) from Last 3 Months or Most Recently Relevant to Health Maintenance Results * (ABNORMAL) COMP METABOLIC PANEL (09/23/2021 7:55 AM EDT) Protein, Total 7.4 6.3 - 8.0 g/dL 09/23/2021 8:15 AM EDT [facility] Albumin 4.4 3.9 - 4.9 g/dL 09/23/2021 8:15 AM EDT [facility] Calcium 10.4(H) 8.5 - 10.2 mg/dL 09/23/2021 8:15 AM EDT [facility] Bilirubin, Total 0.7 0.2 - 1.3 mg/dL 09/23/2021 8:15 AM EDT [facility] Alkaline Phosphatase 167(H) 38 - 113 U/L 09/23/2021 8:15 AM EDT [facility] AST 21 14 - 40 U/L 09/23/2021 8:15 AM EDT [facility] Glucose 104(H) 74 - 99 mg/dL 09/23/2021 8:15 AM EDT [facility] Comment: The [place] Diabetes [employer] (ADA) provides guidance for cutoff [...] Standards of Medical Care in Diabetes 2016, [place] [employer]. Diabetes Care. 2016.39(Suppl 1). BUN 21 9 - 24 mg/dL 09/23/2021 8:15 AM T [facility] Creatinine 1.29(H) 0.73 - 1.22 mg/dL 09/23/2021 8:15 AM [facility] Sodium 139 136 - 144 mmol/L 09/23/2021 8:15 AM [facility] Potassium 4.1 3.7 - 5.1 mmol/L 09/23/2021 8:15 AM [facility] Chloride 103 97 - 105 mmol/L 09/23/2021 8:15 AM [facility] CO2 25 22 - 30 mmol/L 09/23/2021 8:15 AM [facility] Anion Gap 11 9 - 18 mmol/L 09/23/2021 8:15 AM [facility] ALT 17 10 - 54 U/L 09/23/2021 8:15 AM [facility] eGFR- >60 09/23/2021 8:15 AM [facility] eGFR-All Other Races 53 . 09/23/2021 8:15 AM [facility] Comment: eGFR (Estimated GFR) Units of measure: [...] eGFR may not accurately reflect actual GFR. Blood BLOOD SPECIMEN / Unknown 09/23/2021 7:55 AM EDT 09/23/2021 7:57 AM EDT Devonte Mast MD LABORATORY Final Result [facility] [address] [place] [address] [facility] [address] [place], [place] from Last 3 Months or Most Recently Relevant to Health Maintenance Insurance MEDICARE [facility] MEDICARE SUPPLEMENT [facility] Address: [address] [place] [address] Care Teams Sleeve Wheel Maker Relationship Specialty Start Date End Date Rory Smith MD PCP - General Family Medicine 03/06/18 Issa Mortensen DO Consulting Hematology/Oncology 03/15/18 Dano Ontiveros MD [address] [place] [address] [place] [address] Consulting Radiation Oncology 03/16/18 Jami Uriostegui LSW Preventative Maintenance Technician 06/22/18 Dr. Echo Tran [address] [place] [address],[place] [address] Consulting Ent - Otolaryngology 03/06/18
--- OUTSIDE RECORDS SUMMARY | 2025-08-05 12:41 | XMS_ITS | Encounter Summary ---
Author Organization [facility] Address [address] [place] [address] Care Team Providers Care Performance Improvement Analyst Name Role Phone Rory Smith MD Primary Care Provider [phone] Reason for Visit * Reason Comments Med Refill Encounter Details Date Type Department Care Team (Late st Contact Info) Description 08/04/2025 Refill [facility] Heart at [facility] [address] [place] [address] Angel Velasquez MD [address] [facility] [address] [facility] [place] [id number] 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) Social History Tobacco Use Types Packs/Day Years Used Date Smoking Tobacco: Former Cigarettes Alcohol Use Standard Drinks/Week Comments Yes 0 (1 standard drink = 0.6 oz pur e alcohol) occasional [place] Safety & Environment Answer Date Rec orded Fear of Current or Ex-Partner Not on file Emotionally Abused Not on file 01/11/2024 Physically Abused Not on file 01/11/2024 Sexually Abused Not on file 01/11/2024 Physically or Sexually Abused Not on file Sex and Gender Information Value Date Recorded Sex Assigned at Male 06/20/2025 1:30 PM EDT Legal Sex Male 11:03 PM EDT Gender Identity Male 06/20/2025 1:30 PM EDT Sexual Orientation Heterosexual or Straight 11/2024 1:30 PM EDT documented as of this encounter Plan of Treatment Not on file documented as of this encounter Visit Diagnoses Diagnosis Pulmonary hypertension due to left heart disease (CMS/[facility]) documented in this encounter Care Teams Performance Improvement Analyst Relationship Specialty Start Date End Date Rory Smith MD [address] [place] [id number] PCP - General 12/19/22 documented as of this encounter
--- OUTSIDE RECORDS SUMMARY | 2025-08-05 12:41 | XMS_ITS ---
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 Past Treatment and Therapy Plans NON-CHEMO 1 Plan Name Start Date Discontinue Date Treatment Medications Discontinue Reason Plan Provider Cycles GI FLUIDS 9 10/27/2021 No medications scheduled. Other Alyse Martin MD 1 of 1 cycle started GI FLUIDS 06/04/2018 08/05/2019 No medications scheduled. Other Dano Ontiveros MD 5 of 5 cycles started ONCOLOGY REGIMEN Plan Name Start Date Discontinue Date Treatment Medications Discontinue Reason Plan Provider Cycles CISPLATIN 40 D1,8,15,22 - Q28D 05/03/20 18 07/08/2019 CISplatin iv piggyback or iv infusionfosaprepitant iv piggyback in NaCl 0.9% (EMEND) Other Issa Mortensen DO 1 of 1 cycle started Resolved Problems Problem Noted Date Diagnosed Date Resolved Date Pericardial effusion 10/15/2019 019
--- OUTSIDE RECORDS SUMMARY | 2025-08-05 12:41 | XMS_ITS | Clinical Summary ---
Author Organization [facility] Address [facility] [id number] [place] [address] Care Team Providers Care Php Consultant Name Role Phone Unavailable Primary Care Provider Unavailabl e Social History Tobacco Use Types Packs/Day Years Used Date Smoking Tobacco: Never Assessed Childcare Answer Date Recorded Childcare Unknown 04/25/2019 Employment Answer Date Recorded Employment Unknown 04/25/2019 Sex and Gender Information Value Date Recorded Sex Assigned at Not on file Legal Sex Male 10:13 AM EDT Gender Identity Not on file Sexual Orientation Not on file Plan of Treatment Not on file Medical Devices Not on file
--- OUTSIDE RECORDS SUMMARY | 2025-08-05 12:41 | XMS_ITS | Patient Health Record ---
Author Organization The [facility] in [place] Address [address] [place] [address] Care Team Providers Care Fireman Name Role Phone Diallo Smith Primary Care Provider [phone] Allergies No Known Allergies Results Component Value Reference Range Notes FREE T3 Reviewed date:09/12/2024 07:49:20 PM Interpretation: Performing Lab: Notes/Report: [facility] , Free T3 2.11 2.18-3.98 pg/mL Performing Lab: see note ML - [facility] LB T4 Reviewed date:09/12/2024 07:49:20 PM Interpretation: Performing Lab: Notes/Report: [facility] , T4 Thyroxine 6.40 4.50-12.10 ug/dL Performing Lab: see note ML - [facility] LB TSH Reviewed date:09/12/2024 07:49:20 PM Interpretation: Performing Lab: Notes/Report: [facility] , Thyroid Stimulating Hormone 0.012 0.358-3.740 uIU/mL Performing Lab: see note ML - [facility] LB Upper Respiratory Culture Reviewed date:12/29/2024 11:51:50 AM Interpretation: Performing Lab: Notes/Report: [facility] , Upper Respiratory Culture See Below For Report Upper Respiratory Culture Pseudomonas aeruginosa. O:PSAEMU Isolated Organism: 1.1 Antibiotic Interpretation YOKASTA Status Upper Respiratory Culture *ABNORMAL* Upper Respiratory Culture Pseudomonas aeruginosa. O:PSAEMU Isolated Organism: 1.1 Antibiotic Interpretation YOKASTA Status Upper Respiratory Culture Upper Respiratory Culture Pseudomonas aeruginosa. O:PSAEMU Isolated Organism: 1.1 Antibiotic Interpretation YOKASTA Status Upper Respiratory Culture Ceftazidime-avibactam and ceftolozane-tazobactam may be Upper Respiratory Culture Pseudomonas aeruginosa. O:PSAEMU Isolated Organism: 1.1 Antibiotic Interpretation YOKASTA Status Upper Respiratory Culture considered for therapy ONLY when multi-drug resistance (MDR) Upper Respiratory Culture Pseudomonas aeruginosa. O:PSAEMU Isolated Organism: 1.1 Antibiotic Interpretation YOKASTA Status Upper Respiratory Culture is demonstrated to meropenem and other tested agents. Upper Respiratory Culture Pseudomonas aeruginosa. O:PSAEMU Isolated Organism: 1.1 Antibiotic Interpretation YOKASTA Status Upper Respiratory Culture Upper Respiratory Culture Pseudomonas aeruginosa. O:PSAEMU Isolated Organism: 1.1 Antibiotic Interpretation YOKASTA Status Upper Respiratory Culture Heavy growth Upper Respiratory Culture Pseudomonas aeruginosa. O:PSAEMU Isolated Organism: 1.1 Antibiotic Interpretation YOKASTA Status Upper Respiratory Culture See Below For Report Upper Respiratory Culture Pseudomonas aeruginosa. O:PSAEMU Isolated Organism: 1.1 Antibiotic Interpretation YOKASTA Status Upper Respiratory Culture Performed at: [facility] Upper Respiratory Culture Pseudomonas aeruginosa. O:PSAEMU Isolated Organism: 1.1 Antibiotic Interpretation YOKASTA Status Upper Respiratory Culture [address], [place] [id number] Upper Respiratory Culture Pseudomonas aeruginosa. O:PSAEMU Isolated Organism: 1.1 Antibiotic Interpretation YOKASTA Status Upper Respiratory Culture Home Assessment Nurse: Jake Hartman PhD, Phone: [phone] Upper Respiratory Culture Pseudomonas aeruginosa. O:PSAEMU Isolated Organism: 1.1 Antibiotic Interpretation YOKASTA Status Upper Respiratory Culture See Below For Report Upper Respiratory Culture Pseudomonas aeruginosa. O:PSAEMU Isolated Organism: 1.1 Antibiotic Interpretation YOKASTA Status Upper Respiratory Culture Cefepime S F Upper Respiratory Culture Pseudomonas aeruginosa. O:PSAEMU Isolated Organism: 1.1 Antibiotic Interpretation YOKASTA Status Upper Respiratory Culture Ceftazidime S F Upper Respiratory Culture Pseudomonas aeruginosa. O:PSAEMU Isolated Organism: 1.1 Antibiotic Interpretation YOKASTA Status Upper Respiratory Culture Ciprofloxacin S F Upper Respiratory Culture Pseudomonas aeruginosa. O:PSAEMU Isolated Organism: 1.1 Antibiotic Interpretation YOKASTA Status Upper Respiratory Culture Levofloxacin S F Upper Respiratory Culture Pseudomonas aeruginosa. O:PSAEMU Isolated Organism: 1.1 Antibiotic Interpretation YOKASTA Status Upper Respiratory Culture Meropenem S F Upper Respiratory Culture Pseudomonas aeruginosa. O:PSAEMU Isolated Organism: 1.1 Antibiotic Interpretation YOKASTA Status Upper Respiratory Culture Tobramycin S F Upper Respiratory Culture Pseudomonas aeruginosa. O:PSAEMU Isolated Organism: 1.1 Antibiotic Interpretation YOKASTA Status Upper Respiratory Culture Piperacillin/Tazobactam R F Upper Respiratory Culture Pseudomonas aeruginosa. O:PSAEMU Isolated Organism: 1.1 Antibiotic Interpretation YOKASTA Status Upper Respiratory Culture Ceftazidime/Avibactam S F Upper Respiratory Culture Pseudomonas aeruginosa. O:PSAEMU Isolated Organism: 1.1 Antibiotic Interpretation YOKASTA Status Upper Respiratory Culture Ceftolozane/Tazobactam S F Upper Respiratory Culture Pseudomonas aeruginosa. O:PSAEMU Isolated Organism: 1.1 Antibiotic Interpretation YOKASTA Status Performing Lab: see note LC - [facility] LB SEE REPORT - Human Service Technician Id information not found for OBX-specific morning news producer legend Reason For Referral No Information Medications Medication SIG (Take, Route, Frequency, Duration) Notes Start Date End Date Status Cetirizine HCl 10 mg TAKE ONE TABLET BY MOUTH DAILY; Duration: 30 Active Eliquis 2.5 MG 1 tablet Orally twic e daily Unknown Furosemide 20 MG Oral; Duration: 90 Days Unknown Dicyclomine HCl 20 mg TAKE ONE TABLET BY MOUTH THREE TIMES A DAY FOR 30 DAYS; Duration: 30 Active levoFLOXacin 750 MG 1 tablet Orally Once a day; Duration: 14 days 12/30/2024 Unknown Metoprolol Succinate ER 100 mg TAKE ONE TABLET BY MOUTH DAILY; Duration: 30 days Unknown Spironolactone 25 MG 1/2 tablet Orally O nce a day; Duration: 30 days 06/24/2025 Unknown Doxazosin Mesylate 4 MG 1 tablet Orally Once a day 07/16/2024 Unknown FeroSul 325 (65 Fe) MG TAKE ONE TABLET B Y MOUTH TWICE A DAY; Duration: 30 Active Levothyroxine Sodium 112 MCG TAKE ONE TA BLET BY MOUTH ONCE DAILY IN THE MORNING ON AN EMPTY STOMACH; Duration: 30 Active Liothyronine Sodium 5 MCG 2 tablet on an empty stomach Orally Once a day; Duration: 30 days Unknown Lipitor 40 MG 1 tablet Orally Once a day Unknown Social History Tobacco Use: Social History Observation Description Date Details (start date - stop date) Former Smoker 11/20/1952 - 11/20/1997 Tobacco Use/Smoking Question Answer Notes Patient is a former smoker When did you start smoking? 11/20/1952 When did you stop smoking? 11/20/1997 How long has it been since you last smoked? > 10 years Alcohol Screen (Audit-C) Question Answer Notes Did you have a drink contain ing alcohol in the past year? Yes How often did you have 6 or more drinks on one occasion in the past year? Never (0 point) How many drinks did you have on a typical day when you were drinking in the past year? 1 or 2 drinks (0 point) How often did you have a dri nk containing alcohol in the past year? 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 Problem Mitral valve disorder (82419122) Nonrheumatic mitral (valve) insufficiency (I34.0) Active confirmed Problem Cardiomegaly (6226113) Cardiomegaly (I51.7) Active confirmed Problem Blood chemistry abnormal (683118050) Other specified abnormal findings of blood chemistry (R79.89) Active confirmed Problem Long-term current use of drug therapy (969689844) Other terminal makeup operator (current) drug therapy (Z79.899) Active confirmed Problem 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) Active confirmed Problem Atrial fibrillation (41437099) Atrial fibrillation (I48.91) Active confirmed Problem Hypothyroidism (24690638) Hypothyroidism (E03.9) Active confirmed Problem Coronary artery disease (21953160) CAD (coronary artery disease) (I25.10) Active confirmed Problem Irritable bowel (51723396) Irritable bowel (K58.9) Active confirmed Problem Acute idiopathic pericarditis (541278266) Acute idiopathic pericarditis (I30.0) Active confirmed Problem Malignant tumor of nasopharynx (376152507) 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) Active confirmed Problem Pericardial effusion - noninflammatory (disorder) (328648557) Other pericardial effusion (noninflammatory) (I31.39) Active confirmed Vital Signs Blood pressure diastolic 82 mm Hg 07/09/2025 Height 66 in 07/09/2025 Blood pressure systolic 140 mm Hg 07/09/2025 Weight 158 lbs 07/09/2025 BMI 25.5 kg/m2 07/09/2025 Encounters Encounter Location Date Provider Diagnosis [facility] [address] [place] [address] 07/09/2025 Diallo Kikosindhu Hypothyroidism E03.9 ; Atrial fibrillation I48.91 ; Essential (primary) hypertension I10 and Cardiomegaly I51.7 [facility] [address] [place] [address] 09/05/2024 Diallo Kikosindhu Hypothyroidism E03.9 [facility] [address] [place] [address] 09/12/2024 Diallo Smith [facility] [address] [place] [address] 12/29/2024 Diallo Luis [facility] [address] [place] [address] 06/24/2025 Diallo Luis [facility] [address] [place] [address] 07/07/2025 Diallo Smith Assessments Encounter Date Diagnosis (ICD Code) Assessment Notes Treatment Notes Treatment Clinical Notes Section Notes 07/09/2025 Atrial fibrillation (ICD-10 - I48.91) 07/09/2025 Hypothyroidism (ICD-10 - E03.9) 09/05/2024 Hypothyroidism (ICD-10 - E03.9) 07/09/2025 Essential (primary) hypertension (ICD-10 - I10) 07/09/2025 Cardiomegaly (ICD-10 - I51.7) Plan Of Treatment Pending Test Test Name Order Date CMP (COMPLETE METABOLIC PANEL) 3 CMP (COMPLETE METABOLIC PANEL) 4 HEMOGLOBIN A1C (GLYCO) 07/16/2024 HEMOGLOBIN A1C (GLYCO) 07/09/2025 HEMOGLOBIN A1C (GLYCO) 05/03/2023 INSULIN, TOTAL 05/03/2023 LIPID PANEL (CHOL/TRIG/HDL/LDL) 05/03/20 23 LIPID PANEL (CHOL/TRIG/HDL/LDL) 07/09/20 25 CBC WITH DIFF 05/03/2023 CBC WITH DIFF 07/16/2024 PSA, PROSTATE-SPECIFIC ANTIGEN 3 URIC ACID 05/03/2023 BNP 05/19/2023 High Sensitivity Troponin 07/09/2025 STOOL OCCULT BLOOD 07/09/2025 BNP 05/03/2023 BNP 07/09/2025 PROF CHEM 8 (BAS METB) 05/19/2023 THYROID PANEL (T4/TSH/FREE T3) 3 THYROID PANEL (T4/TSH/FREE T3) 4 THYROID PANEL (T4/TSH/FREE T3) 3 THYROID PANEL (T4/TSH/FREE T3) 5 THYROID PANEL (T4/TSH/FREE T3) 4 PSA, SCREENING 07/09/2025 CMP (COMP MET BURROUGHS) w/eGFR CKD-EPI 2024 CBC WITH DIFF 07/09/2025 Insurance Providers Payer Name Payer Address Payer Phone Subscriber Number Group Number Insured Name Patient Relationship to Insured Coverage Start Date Coverage End Date [place] [address] [place] [address] [id number] Moe Ko Self - patient is the insured [employer] MEDICARE SUPPLEMENT [address] [place] [address] [id number] Moe Ko Self - patient is the insured Medical (General) History Medical History History ICD Code Atrial fibrillation I48.91 Acute idiopathic pericarditis I30.0 Hypothyroidism E03.9 Nasopharyngeal cancer C11.9 Surgical History Surgery Date(Month/Year) Cardiac Stentx3
--- NOTE | 2025-08-05 13:00 | CA_ITS ---
Patient Name: HOANG AQUINO MR#: [id number] : 1935 Exam Date: 08/05/2025 Ordering Doctor: DR REAL GOMEZ M.D. ECHOCARDIOGRAM REPORT PROCEDURE: CA ECHO DOPPLER COMPLETE INDICATIONS: Mitral regurgitation, pulmonary hypertension COMPARISON: None. DESCRIPTION: COMPLETE ECHOCARDIOGRAM Real-time transthoracic echocardiography with 2D, M-mode, spectral and color flow Doppler performed. QUALITY: Technical quality was good. LEFT VENTRICLE: Normal chamber size. Normal left ventricular wall thickness. LV EF: Global left ventricular systolic function is lower normal limits; visually estimated ejection fraction is 50%. The basal inferior and inferolateral rodrigues are akinetic. DIASTOLIC: Diastolic function cannot be assessed. ATRIAL SEPTUM: Inadequately seen. LEFT ATRIUM: Severe dilatation. RIGHT ATRIUM: Severe dilatation. RIGHT VENTRICLE: Moderate dilatation. Normal right ventricular systolic function. TRICUSPID VALVE: Normal mobility and thickness. No stenosis with moderate regurgitation. Mild pulmonary hypertension. RVSP 36mmHg. MITRAL VALVE: Normal mobility and thickness. No evidence of mitral valve stenosis. There is no mitral annular calcification. Moderate mitral regurgitation. AORTIC VALVE: Normal trileaflet appearance. Thickened aortic valve. Normal leaflet mobility. No evidence of aortic valve stenosis. Mild to moderate aortic regurgitation. AORTIC ROOT: Normal diameter and appearance. PULMONIC VALVE: Normal thickness and mobility. No stenosis. Mild regurgitation. PERICARDIUM: Anterior free space; trivial effusion versus fat pad. IVC: Collapses with inspiration. Normal size. CONCLUSION: 1. Global left ventricular systolic function is at lower normal limits; visually estimated ejection fraction is 50% 2. The right ventricle is moderately dilated with normal systolic function 3. Severe biatrial dilatation 4. Moderate tricuspid regurgitation 5. Mildly elevated right ventricular systolic pressure; RVSP 36 mmHg 6. Moderate mitral regurgitation 7. Mild to moderate aortic valve regurgitation 8. Mild pulmonic regurgitation 9. Anterior free space; trivial effusion versus fat pad Adult Echocardiography Procedure Report Left Ventricle LVEDD (3.7 - 5.6 cm): 5.83 cm LVESD (2.2 - 4.0 cm): 4.40 cm LVIVS thickness (0.6 - 1.2 cm): 0.91 cm LVPW thickness (0.5 - 1.0 cm): 1.11 cm e': 0.12 m/s E - e': 5.82 LVOT Max Gradient: 1.41 mm[Hg], 1.62 mm[Hg] LVOT Area (cm2): 0.61 m/s Peak Velocity (LVOT): 0.59 m/s, 0.64 m/s Mean Velocity (LVOT): 0.40 m/s LVOT Diameter 2.20 cm Left Ventricular Ejection Fraction: 49.33 % Left Atrium LA Volume Index (2D A2C): 100.16 ml/m2 Left Atrium Systolic Dimension: 5.36 cm Mitral Valve MV E to A Ratio: 25.54 Mitral Valve A-Wave Peak Velocity: 0.03 m/s Mitral Valve E-Wave Peak Velocity: 0.72 m/s Right Ventricle RV Internal Diastolic Dimension: 4.62 cm Aorta AO Root Diam: 3.12 cm Ascending Ao Diam: 2.70 cm Aortic Valve AoV Area (Peak Han): 2.14 cm2, 2.06 cm2 AoV Area (VTI): 2.47 cm2, 2.50 cm2 Deceleration [place]: 1.68 m/s2 Pressure Half-Time: 693.61 ms Peak Velocity(Antegrade Flow): 1.10 m/s Peak Gradient(Antegrade Flow): 4.82 mm[Hg] Mean Velocity(Antegrade Flow): 0.71 m/s Mean Gradient(Antegrade Flow): 2.34 mm[Hg] Velocity Time Integral: 19.67 cm Tricuspid Valve Peak Velocity (Regurgitant Flow): 2.68 m/s, 2.87 m/s, 2.65 m/s Pulmonic Valve Mean Gradient: 1.52 mm[Hg], 1.71 mm[Hg], 1.29 mm[Hg] Mean Velocity: 0.59 m/s, 0.62 m/s, 0.53 m/s Peak Velocity: 0.82 m/s Peak Gradient: 2.81 mm[Hg], 3.11 mm[Hg], 2.20 mm[Hg] Right Atrium Right Atrium Systolic Pressure: 171.07 ml, 171.07 ml Dictated by: Star Corbin M.D. on 08/05/2025 at 17:02 Approved by: Star Corbin M.D. on 08/05/2025 at 17:07
--- OUTSIDE RECORDS SUMMARY | 2025-08-05 13:28 | XMS_ITS | CCD ---
Author Organization [facility] CliniSywy Care Team Providers Care Beauty Shop Manager Name Role Phone BETTY CARRERA Admitting Unavailable BETTY CARRERA Attending Unavailable FÉLIX Soria, DR DUMONT Primary Care Unavailable BETTY CARRERA Consulting Unavailable FÉLIX ., DR DUMONT Admitting Unavailable FÉLIX ., DR DUMONT Attending Unavailable FÉLIX ., DR DUMONT Primary Care Unavailable FÉLIX ., DR DUMONT Consulting Unavailable Tim Smith MD Primary Care Provider [phone] ECHO ROBLERO Attending Unavailable ANIL LOPEZ Attending Unavailable REAL [...] disease (6 sources) Atherosclerotic heart disease of [place] coronary artery without angina pectoris; Translations: [Coronary [...] 12-18-2024 Chronic Other aftercare (1 source) Other correction (current) drug therapy; Translations: [OTH JAIL CURRENT DRUG THERAPY] Onset: 01-25-2023 Episodic Other [...] current use of drug therapy; Translations: [Other buttermaker continuous churn (current) drug therapy] Onset: 06-06-2023 12-18-2024 Episodic [...] Range Facility Office Visiton 06-23-2025 Follow-up visit [id number] Hoang Aquino 1935 M Date Provider Department Center 06/23/2025 REAL PAGAN EDD Tobisa Family History Problem Relation Age of Onset Coronary artery disease Son Atrial fibrillation Son Hypertension Son Family Status - Relation Status Age at Mother Father Son Other Level of Service:[address] [place] OFFICE/OUTPATIENT ESTABLISHED MOD MDM 30 MIN Normal [facility] Office Visiton 12-31-2024 Follow-up visit [id number] Hoang Aquino 1935 M Date Provider Department Center 12/31/2024 [facility] Bryn Tobias Family History Problem Relation Age of Onset Coronary artery disease Son Atrial fibrillation Son Hypertension Son Family Status - Relation Status Age at Son Other Level of Service:[address]54 [place] OFFICE/OUTPATIENT ESTABLISHED LOW MDM 20 MIN Reason for Visit and Comments: Coronary Artery Disease [187] Hypertension [270460] Normal [facility] CBC AUTO DIFFon 03-15-2022 BASO # 0.0 103/ul Normal 0.0-0.1 [facility] Comment on above: Performed By: #### C BC #### [facility] [address] [address] [address] Lindsey Weiss Basophils/100 WBC (Bld) 0.5 % Normal 0.2-2.0 [facility] Comment on above: Performed By: #### C BC #### [facility] [address] [address] [address] Lindsey Weiss EO # 0.2 103/ul Normal 0.0-0.7 [facility] Comment on above: Performed By: #### C BC #### [facility] [address] [address] [address] Lindsey Weiss Eosinophils/100 WBC (Bld) 2.1 % Normal 0.9-7.0 [facility] Comment on above: Performed By: #### C BC #### [facility] [address] [address] [address] Lindsey Weiss Erythrocyte distribution width (RBC) [Ratio] 13.4 % Normal 11.0-15.0 [facility] Comment on above: Performed By: #### C BC #### [facility] [address] [place] [address] Dr. Lindsey Weiss Hematocrit (Bld) [Volume fraction] 34.1 % Critically low 42.0-54.0 [facility] Comment on above: Performed By: #### C BC #### [facility] [address] [address] [address] Lindsey Weiss Hemoglobin (Bld) [Mass/Vol] 11.2 g/dL Critically low 14.0-18.0 [facility] Comment on above: Performed By: #### C BC #### [facility] [address] [place] [address] Dr. Lindsey Weiss IG # 0.03 10e3/ul Normal 0.00-0.03 [facility] Comment on above: Performed By: #### C BC #### [facility] [address] [place] [address] Dr. Lindsey Weiss IG % 0.4 % Normal 0.0-0.5 [facility] Comment on above: Performed By: #### C BC #### [facility] [address] [place] [address] Dr. Lindsey Weiss LYMPH # 1.9 103/ul Normal 1.2-3.[address] [facility] Comment on above: Performed By: #### C BC #### [facility] [address] [place] [address] Dr. Lindsey Weiss Lymphocytes/100 WBC (Bld) 23.8 % Normal 20.5-60.[address] [facility] Comment on above: Performed By: #### C BC #### [facility] [address] [place] [address] Dr. Lindsey Weiss MANUAL DIFF REQ NO Normal [facility] Comment on above: Performed By: #### C BC #### [facility] [address] [place] [address] Dr. Lindsey Weiss MCH (RBC) [Entitic mass] 29.6 pg Normal 25.9-34.0 [facility] Comment on above: Performed By: #### C BC #### [facility] [address] [place] [address] Dr. Lindsey Weiss MCHC (RBC) [Mass/Vol] 32.8 g/dL Normal 29.9-35.[address] [facility] Comment on above: Performed By: #### C BC #### [facility] [address] [place] [address] Dr. Lindsey Weiss MCV (RBC) [Entitic vol] 90.2 fL Normal 80.0-94.[address] [facility] Comment on above: Performed By: #### C BC #### [facility] [address] [place] [address] Dr. Lindsey Weiss MONO # 0.6 103/ul Normal 0.3-0.[address] [facility] Comment on above: Performed By: #### C BC #### [facility] [address] [place] [address] Dr. Lindsey Weiss Monocytes/100 WBC (Bld) 8.0 % Normal 1.7-12.0 [facility] Comment on above: Performed By: #### C BC #### [facility] [address] [place] [address] Dr. Lindsey Weiss NEUT # 5.1 103/ul Normal 1.4-6.5 [facility] Comment on above: Performed By: #### C BC #### [facility] [address] [place] [address] Dr. Lindsey Weiss Neutrophils/100 WBC (Bld) 65.2 % Normal 43.0-75.0 [facility] Comment on above: Performed By: #### C BC #### [facility] [address] [place] [address] Dr. Lindsey Weiss Platelet mean volume (Bld) [Entitic vol] 9.2 fL Critically low 9.5-13.5 [facility] Comment on above: Performed By: #### C BC #### [facility] [address] [place] [address] Dr. Lindsey Weiss PLT 209 103/ul Normal 150-[address] [facility] Comment on above: Performed By: #### C BC #### [facility] [address] [place] [address] Dr. Lindsey Weiss RBC 3.78 106/ul Critically low 4.70-6.10 [facility] Comment on above: Performed By: #### C BC #### [facility] [address] [place] [address] Dr. Lindsey Weiss WBC 7.8 103/ul Normal 4.0-11.[address] [facility] Comment on above: Performed By: #### C BC #### [facility] [address] [place] [address] Dr. Lindsey Weiss FREE T3on 03-15-2022 FREE T3 3.29 pg/mlL Normal 2.18-3.98 [facility] Comment on above: Performed By: #### C MP, LIPID, FT3, TSH, T4 #### [facility] [address] [place] [address] Dr. Lindsey Weiss GLYCOHEMOGLOBIN A1Con 2021 ADA RECOMMENDATION SEE BELOW Normal [facility] Comment on above: Result Comment: ADA RECOMMENDED LIMIT 4.0 - 6.0 ADA THERAPEUTIC TARGET < 7.0 ACTION SUGGESTED > 7.0 Performed By: #### A 1C #### [facility] [address] [place] [address] Dr. Lindsey Weiss Glucose [Mass/Vol] 105 mg/dL Normal [facility] Comment on above: Performed By: #### A 1C #### [facility] [address] [place] [address] Dr. Lindsey Weiss HbA1c (Bld) [Mass fraction] 5.3 % Normal 4.5-6.2 [facility] Comment on above: Performed By: #### A 1C #### [facility] [address] [place] [address] Dr. Lindsey Weiss LIPID PROFILEon 03-15-2022 CHOL-HDL RATIO NORM SEE BELOW Normal [facility] Comment on above: Result Comment: 3.3 - 4.4 LOW RISK 4.4 - 7.1 AVERAGE RISK 7.1 - 11.0 MODERATE RISK >11.0 HIGH RISK Performed By: #### C MP, LIPID, FT3, TSH, T4 #### [facility] [address] [place] [address] Dr. Lindsey Weiss Cholesterol [Mass/Vol] 126 mg/dL Normal <=200 [facility] Comment on above: Performed By: #### C MP, LIPID, FT3, TSH, T4 #### [facility] [address] [place] [address] Dr. Lindsey Weiss Cholesterol in HDL [Mass/Vol] 39 mg/dL Critically low 40-60 [facility] Comment on above: Performed By: #### C MP, LIPID, FT3, TSH, T4 #### [facility] [address] [place] [address] Dr. Lindsey Weiss Cholesterol in LDL [Mass/Vol] 65.4 mg/dL Normal [facility] Comment on above: Performed By: #### C MP, LIPID, FT3, TSH, T4 #### [facility] [address] [address] [address] Lindsey Weiss Cholesterol.total/Ch olesterol in HDL [Mass ratio] 3.2 {ratio} Normal [facility] Comment on above: Performed By: #### C MP, LIPID, FT3, TSH, T4 #### [facility] [address] [address] [address] Lindsey Weiss HDL NORMAL > or = 60 mg/dl - LOW CARDIOVASCULAR RISK <40 mg/dl - HIGH CARDIOVASCULAR RISK Normal [facility] Comment on above: Performed By: #### C MP, LIPID, FT3, TSH, T4 #### [facility] [address] [address] [address] Lindsey Weiss LDL CALC NORMAL SEE BELOW Normal [facility] Comment on above: Result Comment: <100 mg/dl OPTIMAL 100 - 129 mg/dl NEAR OR ABOVE OPTIMAL 130 - 159 mg/dl BORDERLINE HIGH 160 - 189 mg/dl HIGH >190 mg/dl VERY HIGH Performed By: #### C MP, LIPID, FT3, TSH, T4 #### [facility] [address] [address] [address] Lindsey Weiss Triglyceride [Mass/Vol] 108 mg/dL Normal <=150 [facility] Comment on above: Performed By: #### C MP, LIPID, FT3, TSH, T4 #### [facility] [address] [address] [address] Lindsey Weiss VLDL CALC 21.6 mg/dL Normal [facility] Comment on above: Performed By: #### C MP, LIPID, FT3, TSH, T4 #### [facility] [address] [address] [address] Lindsey Weiss PROF 14(COMP METB)on 022 Albumin [Mass/Vol] 3.7 g/dL Normal 3.4-5.0 [facility] Comment on above: Performed By: #### C MP, LIPID, FT3, TSH, T4 #### [facility] [address] [place] [address] Dr. Lindsey Weiss Albumin/Globulin [Mass ratio] 0.9 {ratio} Normal [facility] Comment on above: Performed By: #### C MP, LIPID, FT3, TSH, T4 #### [facility] [address] [place] [address] Dr. Lindsey Weiss ALP [Catalytic activity/Vol] 171 U/L Critically high 46-116 [facility] Comment on above: Performed By: #### C MP, LIPID, FT3, TSH, T4 #### [facility] [address] [place] [address] Dr. Lindsey Weiss ALT [Catalytic activity/Vol] 35 U/L Normal 16-63 [facility] Comment on above: Performed By: #### C MP, LIPID, FT3, TSH, T4 #### [facility] [address] [place] [address] Dr. Lindsey Weiss Anion gap [Moles/Vol] 11.3 mmol/L Normal [facility] Comment on above: Performed By: #### C MP, LIPID, FT3, TSH, T4 #### [facility] [address] [place] [address] Dr. Lindsey Weiss AST [Catalytic activity/Vol] 27 U/L Normal 15-37 [facility] Comment on above: Performed By: #### C MP, LIPID, FT3, TSH, T4 #### [facility] [address] [place] [address] Dr. Lindsey Weiss Bilirubin [Mass/Vol] 0.6 mg/dL Normal 0.2-1.0 [facility] Comment on above: Performed By: #### C MP, LIPID, FT3, TSH, T4 #### [facility] [address] [place] [address] Dr. Lindsey Weiss Calcium [Mass/Vol] 9.4 mg/dL Normal 8.5-10.1 [facility] Comment on above: Performed By: #### C MP, LIPID, FT3, TSH, T4 #### [facility] [address] [place] [address] Dr. Lindsey Weiss Chloride [Moles/Vol] 102 mmol/L Normal 98-107 [facility] Comment on above: Performed By: #### C MP, LIPID, FT3, TSH, T4 #### [facility] [address] [place] [address] Dr. Lindsey Weiss CO2 [Moles/Vol] 30.1 mmol/L Normal 21.0-32.0 [facility] Comment on above: Performed By: #### C MP, LIPID, FT3, TSH, T4 #### [facility] [address] [place] [address] Dr. Lindsey Weiss Creatinine [Mass/Vol] 1.31 mg/dL Critically high 0.70-1.30 [facility] Comment on above: Performed By: #### C MP, LIPID, FT3, TSH, T4 #### [facility] [address] [place] [address] Dr. Lindsey Weiss EGFR-AF [place] >60 Normal >=60 [facility] Comment on above: Performed By: #### C MP, LIPID, FT3, TSH, T4 #### [facility] [address] [place] [address] Dr. Lindsey Weiss EGFR-NON AF [place] 52 mL/min/1.73m2 Critically low >=60 [facility] Comment on above: Performed By: #### C MP, LIPID, FT3, TSH, T4 #### [facility] [address] [place] [address] Dr. Lindsey Weiss Globulin (S) [Mass/Vol] 3.9 g/dL Normal [facility] Comment on above: Performed By: #### C MP, LIPID, FT3, TSH, T4 #### [facility] [address] [place] [address] Dr. Lindsey Weiss Glucose [Mass/Vol] 98 mg/dL Normal 74-106 [facility] Comment on above: Performed By: #### C MP, LIPID, FT3, TSH, T4 #### [facility] [address] [place] [address] Dr. Lindsey Weiss Potassium [Moles/Vol] 4.4 mmol/L Normal 3.5-5.1 [facility] Comment on above: Performed By: #### C MP, LIPID, FT3, TSH, T4 #### [facility] [address] [place] [address] Dr. Lindsey Weiss Protein [Mass/Vol] 7.6 g/dL Normal 6.1-8.2 [facility] Comment on above: Performed By: #### C MP, LIPID, FT3, TSH, T4 #### [facility] [address] [address] [address] Lindsey Weiss Sodium [Moles/Vol] 139 mmol/L Normal 136-145 [facility] Comment on above: Performed By: #### C MP, LIPID, FT3, TSH, T4 #### [facility] [address] [place] [address] Dr. Lindsey Weiss Urea nitrogen [Mass/Vol] 19.0 mg/dL Critically high 7.0-18.0 [facility] Comment on above: Performed By: #### C MP, LIPID, FT3, TSH, T4 #### [facility] [address] [place] [address] Dr. Lindsey Weiss Urea nitrogen/Creatinine [Mass ratio] 14.5 mg/mg Normal [facility] Comment on above: Performed By: #### C MP, LIPID, FT3, TSH, T4 #### [facility] [address] [place] [address] Dr. Lindsey Weiss T4on 03-15-2022 T4 [Mass/Vol] 9.30 ug/dL Normal 4.50-12.10 [facility] Comment on above: Performed By: #### C MP, LIPID, FT3, TSH, T4 #### [facility] [address] [place] [address] Dr. Lindsey Weiss TSHon 03-15-2022 TSH 0.013 uIU/mL Critically low 0.470-4.680 [facility] Comment on above: Performed By: #### C MP, LIPID, FT3, TSH, T4 #### [facility] [address] [place] [address] Dr. Lindsey Weiss TSH RANGE SEE BELOW Normal [facility] Comment on above: Result Comment: <0.3 4 UIU/ml HYPERTHYROID 0.34-5.60 UIU/ml EUTHYROID >5.60 UIU/ml HYPOTHYROID Performed By: #### C MP, LIPID, FT3, TSH, T4 #### [facility] [address] [address] [address] CHEST W IVCONon 1 CT CHEST W IVCON * * *Final Report* * * DATE OF EXAM: Sep 23 2021 8:54AM [facility] 0539 - CT CHEST W IVCON [...] No abnormality in the imaged upper abdomen. Central Office Associate (topogram) images: No additional findings. IMPRESSION: 1. [...] any questions regarding this interpretation, please call [phone]. If you are unable to reach us at the number above, please feel free to contact [facility] at [phone]. [id number] CN Normal [facility] CT NECK SOFT TISSUE W IVCONo n 09-23-2021 CT NECK SOFT TISSUE W IVCON * * *Final Report* * * DATE OF EXAM: Sep 23 2021 8:54AM [facility] 0013 - CT NECK SOFT TISSUE [...] any questions regarding this interpretation, please call [phone]. If you are unable to reach us at the number above, please feel free to contact [facility] at [phone]. [id number] CN Normal [facility] Comp Metabolic Panelon 09-23 Albumin [Mass/Vol] 4.4 g/dL Normal 3.9-4.9 [facility] ALP [Catalytic activity/Vol] 167 U/L High 38-113 [facility] ALT [Catalytic activity/Vol] 17 U/L Normal 10-54 [facility] Anion gap [Moles/Vol] 11 mmol/L Normal 9-18 [facility] AST [Catalytic activity/Vol] 21 U/L Normal 14-40 [facility] Bilirubin [Mass/Vol] 0.7 mg/dL Normal 0.2-1.3 [facility] Calcium [Mass/Vol] 10.4 mg/dL High 8.5-10.2 [facility] Chloride [Moles/Vol] 103 mmol/L Normal 97-105 [facility] CO2 [Moles/Vol] 25 mmol/L Normal 22-30 [facility] Creatinine [Mass/Vol] 1.29 mg/dL High 0.73-1.22 [facility] eGFR- Amer. >60 Normal [facility] eGFR-All Other Races 53 . Normal [facility] Comment on above: Result Comment: eGFR (Estimated [...] GFR. Glucose [Mass/Vol] 104 mg/dL High 74-99 [facility] Comment on above: Result Comment: The [place] Diabetes [employer] (ADA) provides guidance for cutoff [...] Standards of Medical Care in Diabetes 2016, [place] [employer] Association. Diabetes Care. 2016.39(Suppl 1). Potassium [Moles/Vol] 4.1 mmol/L Normal 3.7-5.1 [facility] Protein [Mass/Vol] 7.4 g/dL Normal 6.3-8.0 [facility] Sodium [Moles/Vol] 139 mmol/L Normal 136-144 [facility] Urea nitrogen [Mass/Vol] 21 mg/dL Normal 9-24 [facility] Remote CBCDIF (for [facility] use o nly)on 09-23-2021 Abs Baso 0.03 k/uL Normal <0.11 [facility] Abs Sac 0.70 k/uL Normal <0.87 [facility] Abs Neut 3.11 k/uL Normal 1.45-7.50 [facility] Absolute nRBC <0.01 Normal <0.01 [facility] Basophils/100 WBC (Bld) 0.5 % Normal [facility] DTYPE Auto Diff Normal [facility] Eosinophils (Bld) [#/Vol] 0.21 10*3/uL Normal <0.46 [facility] Eosinophils/100 WBC (Bld) 3.7 % Normal [facility] Erythrocyte distribution width (RBC) [Ratio] 13.6 % Normal 11.5-15.0 [facility] Hematocrit (Bld) [Volume fraction] 34.2 % Low 39.0-51.0 [facility] Hemoglobin (Bld) [Mass/Vol] 11.6 g/dL Low 13.0-17.0 [facility] Lymphocytes (Bld) [#/Vol] 1.66 10*3/uL Normal 1.00-4.00 [facility] Lymphocytes/100 WBC (Bld) 29.0 % Normal [facility] MCH 29.4 pG Normal 26.0-34.0 [facility] MCHC (RBC) [Mass/Vol] 33.9 g/dL Normal 30.5-36.0 [facility] MCV (RBC) [Entitic vol] 86.6 fL Normal 80.0-100.0 [facility] Monocytes/100 WBC (Bld) 12.2 % Normal [facility] Neutrophils/100 WBC (Bld) 54.6 % Normal [facility] NRBCs 0.0 /100 WBC Normal 0 [facility] Platelet mean volume (Bld) [Entitic vol] 9.8 fL Normal 9.0-12.7 [facility] Platelets (Bld) [#/Vol] 163 10*3/uL Normal 150-400 [facility] RBC (Bld) [#/Vol] 3.95 10*6/uL Low 4.20-6.00 [facility] WBC (Bld) [#/Vol] 5.73 10*3/uL Normal 3.70-11.00 [facility] CNPNon 09-06-2021 CNPN Telephone (PETSAN) HOANG AQUINO ([id number]) 1935 M Date Time Provider Department 09/06/21 [...] lymph node [R59.9] Order(s):CT CHEST W IVCON [[id number]] Order #: [id number] FUTURE iv contrast (will be provided with [...] Status:Closed by KAYLAH WILHELM on 09/06/21 Normal [facility] Vital Signs Date Time Vital Sign Value Performing Clinician Shilpa morales 12-18-2024 13:05-0500 Body height 167.6 cm Echo Roblero MD Work Phone: [facility] 12-18-2024 13:05-0500 Body mass index (BMI) [Ratio] 26.47 kg/m2 Echo Roblero MD Work Phone: [facility] 12-18-2024 13:05-0500 Body weight 74.39 kg Echo Roblero MD Work Phone: [facility] 12-18-2024 13:05-0500 Diastolic blood pressure 71 mm[Hg] Echo Roblero MD Work Phone: [facility] 12-18-2024 13:05-0500 Heart rate 61 /min Echo Roblero MD Work Phone: 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 Facility: Procedures Date Procedure Procedure Detail Performing Clinician Start: 03-15-2022 PSA screening BETTY CARRERA Comment on above: Performed By: #### P [facility] #### [facility] [address] [place] [address] Dr. Lindsey Weiss Plan of Treatment Date Care Activity Detail Author Start: 12-18-2024 End: 12-18-2025 Ear culture Ear culture Microbiology Routine Otorrhea of right ear Expected: 12/18/2024 (Approximate), Expires: 12/18/2025 [facility] Healthcare Work Phone: Comment on above: Expected: 12/18/2024 (Approximate), Expires: 12/18/2025 Start: 07-21-2024 Influenza vaccination Influenza Vacc ine (#1) [facility] Start: 2002 Pneumococcal Vaccine : 65+ Years (1 of 1 - PCV) Pneumococcal Vaccine: 65+ Years (1 of 1 - PCV) [facility] Payers Date Payer Category Payer Unknown [id number] 2019 [facility] [id number] 2001 Medicare MEDICARE [id number] 1959 Medicare [id number] 1959 Unknown [id number] 1937 Unknown [id number] 1937 Unknown [id number] 1937 Unknown [id number] Social History Date Type Detail Facility Tobacco smoking stat [facility] Tobacco smoking consumption unknown [facility] Start: 1935 Sex assigned at Not on file [facility] Start: 12-18-2024 Gender identity Not on file [facility] Start: 12-18-2024 Tobacco smoking stat [facility] Never smoked tobacco [facility] Start: [...] Note Facility 06-23-2025 Note [facility] Subjective Hoang Aquino is a 89 [...] specified abnormal findings of blood chemistry Other buttermaker continuous churn (current) drug therapy Disorder of skin of [...] developed pericardial effusion and was transferred to [facility] where he underwent pericardiocentesis. This did not [...] mg tablet, RADHA (more content not included)... [facility] 12-31-2024 Note Cardiovascular Medic [facility] SUBJECTIVE Chief Complaint Patient presents with [...] specified abnormal findings of blood chemistry Other buttermaker continuous churn (current) drug therapy Disorder of skin of [...] and Rhythm: No (more content not included)... [facility] 12-31-2024 Note Patient here for 6 m [...] All other systems reviewed and are negative. [facility] 12-27-2024 Telephone encounter Note Tried to call pt but it just rings [facility] 12-27-2024 Miscellaneous Notes Tried to call pt but it just rings RX sent in per cx documented in this encounter [facility] 12-27-2024 Telephone encounter Note RX sent in per cx [facility] 12-18-2024 History of Present illness Narrative Images from the original note were not included. Subjective Patient ID: Hoang Aquino is a 89 y.o. male who presents for Cancer (Yearly check lost to follow up ) C/O right otorrhea No family history on file. 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 Hyperlipidemia ([facility]/HCC) 04/08/2013 Hypertensive disorder ([facility]/HCC) 12/19/2022 Hypothyroidism ([facility]/HCC) 10/30/2019 Impacted cerumen 04/08/2013 Irritable bowel syndrome 04/08/2013 Kidney stone 04/08/2013 Lumbar radiculopathy 12/18/2024 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 Will tx with oral and topical abx. No evidence of recurrent NPC documented in this encounter [facility] 01-19-2023 Note OPERATIVE NOTE OPERATION DATE: 01/19/2023 [...] ensuring mobility, phacoemulsification was performed in a [id number]-type fashion. After all nuclear material had been [...] the following day for postoperative care. [facility] 01-19-2023 Note PREOPERATIVE HISTORY AND PHYSICAL [...] bilaterally. Pupils motility, muscle balance, confrontational visual agrcia within normal limits bilaterally. Pressures measured at [...] go forward with his elective procedure. [facility] 09-23-2021 Note HNO ID: [id number] Author: Katy Spence RT(R) Service: ? Author [...] RT Domo(R) September 23, 2021 8:50 AM [facility] Evaluation note Diagnosis Otorrhea of right [...] section and content) DATE CREATED AUTHOR 12/24/2021 [facility] DATE CREATED AUTHOR AUTHOR'S ORGANIZ ATION 01/27/2023 [facility] DATE CREATED AUTHOR AUTHOR'S ORGANIZ ATION 12/20/2024 [facility] DATE CREATED AUTHOR AUTHOR'S ORGANIZ ATION 06/25/2025 [facility] Care Teams (unrecognized sec tion and content) [employer] Relationship Specialty Start Date End Date Tim Smith MD [address] [place] [phone] PCP - General Family Medicine 12/18/24 Beauty [employer] Relationship Specialty Start Date End Date Tim Smith MD [address] [place] [phone] PCP - General Family Medicine 12/18/24 Beauty Shop Manager Relationship Specialty Start Date End Date Tim Smith MD [address] [place] [phone] PCP - General Family Medicine 12/18/24 Reason [...] BE BASED ON THE PRIMARY CLINICAL RECORDS. [employer] [facility]. provides no warranty or guarantee of the accuracy or completeness of information in this document.
== END 2025-08-05 12:40 | disposition home or self-care (01) ==
LOC: CARD 12:39
PROVIDERS: PCP Family Medicine; Visit Provider Internal Medicine Interventional Cardiology
DX: I27.22 Pulmonary hypertension due to left heart disease (principal); I34.0 Nonrheumatic mitral (valve) insufficiency; I36.1 Nonrheumatic tricuspid (valve) insufficiency
CPT/HCPCS: 93306; 93356

== ENCOUNTER 2025-08-05 13:41 | Outpatient (OUT) | payer MEDICARE, BC, SELFPAY ==
--- OUTSIDE RECORDS SUMMARY | 2025-08-04 16:17 | XMS_ITS | CCD ---
Author Organization [facility] Care Team Providers Care Art History Instructor Name Role Phone BETTY CARRERA Admitting Unavailable BETTY CARRERA Attending Unavailable ÉFLIX Soria, DR DUMONT Primary Care Unavailable BETTY CARRERA Consulting Unavailable FÉLIX ., DR DUMONT Admitting Unavailable FÉLIX ., DR DUMONT Attending Unavailable FÉLIX ., DR DUMONT Primary Care Unavailable FÉLIX ., DR DUMONT Consulting Unavailable Tim Smith MD Primary Care Provider [phone] ECHO ROBLEOR Attending Unavailable ANIL LOPEZ Attending Unavailable REAL GOMEZ Attending Unavailable Medications Current Medications Medication Drug Class(es) Dates Sig (Normalized) Sig (Original) apixaban 2.5 mg oral tablet (3 sources) Factor Xa Inhibitor Start: 06-10-2024 End: 06-10-2025 take 1 tablet by mouth every twelve hours apixaban (Eliquis) 2.5 MG tablet Take 2.5 mg by mouth every 12 (twelve) hours 06/10/2024 06/10/2025 Active atorvastatin 40 mg oral tablet (3 sources) HMG-CoA Reductase Inhibitor take 1 tablet by mouth once daily atorvastatin (Lipitor) 40 MG tablet Take 40 mg by mouth Daily Active cetirizine hydrochloride 10 mg oral tablet (3 sources) Histamine-1 Receptor Antagonist Start: 10-28-2024 take 1 tablet by mouth once daily cetirizine (ZyrTEC) 10 MG tablet Take 10 mg by mouth Daily 10/28/2024 Active diclofenac 35 mg oral capsule (3 sources) Nonsteroidal Anti-inflammatory Drug Diclofenac 35 MG capsule every 8 (eight) hours Active dicyclomine hydrochloride 20 mg oral tablet (3 sources) Anticholinergic take 1 tablet by mouth three times daily dicyclomine (Bentyl) 20 MG tablet TAKE ONE TABLET BY MOUTH THREE TIMES A DAY FOR 30 DAYS Active doxazosin 4 mg oral tablet (3 sources) alpha-Adrenergic Bobbi Start: 06-10-2024 End: 06-10-2025 doxazosin (Cardura) 4 MG tablet Take 6 mg by mouth 06/10/2024 06/10/2025 Active ferrous sulfate 325 mg oral tablet (3 sources) Start: 11-25-2024 take 1 tablet by mouth in the morning FeroSul 325 (65 Fe) MG tablet Take 1 tablet by mouth in the morning and 1 tablet before bedtime. 11/25/2024 Active hyoscyamine sulfate 0.125 mg sublingual tablet (3 sources) Start: 01-11-2024 hyoscyamine (Levsin) 0.[address] ONE TABLET UNDER TONGUE AND ALLOW TO DISSOLVE TWICE A DAY ( IN THE MORNING AND AT BEDTIME ) 01/11/2024 Active levoFLOXacin 500 mg oral tablet (1 source) Quinolone Antimicrobial Start: 12-27-2024 End: 01-06-2025 take 1 tablet by mouth once daily levoFLOXacin (Levaquin) 500 MG tablet Indications: Otorrhea of right ear Take 1 tablet (500 mg) by mouth Daily for 10 days 10 tablet 12/27/2024 01/06/2025 Active levothyroxine sodium 0.112 mg oral tablet (3 sources) l-Thyroxine Start: 12-02-2024 take 1 tablet by mouth once daily in the morning levothyroxine (Synthroid, Levoxyl) 112 MCG tablet TAKE ONE TABLET BY MOUTH ONCE DAILY IN THE MORNING ON AN EMPTY STOMACH 12/02/2024 Active 24 hr metoprolol succinate 100 mg extended release oral tablet (3 sources) beta-Adrenergic Bobbi Start: 08-29-2024 take 1 tablet by mouth once daily metoprolol succinate XL (Toprol-XL) 100 MG 24 hr tablet TAKE ONE TABLET BY MOUTH DAILY 90 08/29/2024 Active Problems Active Problems Problem Classification Problem Date Documented Da te Episodic/Chronic Cancer of head and neck (8 sources) Nasopharyngeal carcinoma; 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, unspecified] Onset: 10-01-2018 12-18-2024 Chronic Cancer; other and unspecified primary (1 source) Personal history of malignant neoplasm of other organs and systems; Translations: [PERS HX MALIG NEOPLASM OTH ORGN AND SYS] Onset: 03-08-2023 Episodic Cardiac dysrhythmias (3 sources) Paroxysmal atrial fibrillation; Translations: [Paroxysmal atrial fibrillation] Onset: 12-19-2022 12-18-2024 Chronic Cataract (4 sources) Age-related nuclear cataract, right eye; Translations: [AGE-REL NUCLEAR CATARACT RT EYE] Onset: 01-19-2023 Chronic Coronary atherosclerosis and other heart disease (6 sources) Atherosclerotic heart disease of [place] coronary artery without angina pectoris; Translations: [Coronary atherosclerosis] Onset: 04-12-2013 12-18-2024 Chronic Coronary atherosclerosis and other heart disease (3 sources) Presence of coronary angioplasty implant and graft; Translations: [PRESENCE COR ANGPLSTY IMPLANT AND GRAFT] Onset: 01-25-2023 Episodic Disorders of lipid metabolism (10 sources) Pure hypercholesterolemia, unspecified; Translations: [Hyperlipidemia, unspecified] Onset: 04-08-2013 Chronic Diverticulosis and diverticulitis (3 sources) Diverticulosis of colon; Translations: [Diverticulosis of large intestine without perforation or abscess without bleeding] Onset: 04-08-2013 12-18-2024 Chronic Essential hypertension (9 sources) Essential (primary) hypertension; Translations: [Benign essential hypertension] Onset: 04-08-2013 12-18-2024 Chronic Heart valve disorders (10 sources) Nonrheumatic aortic (valve) insufficiency; Translations: [Aortic valve disorders] Onset: 11-22-2023 12-18-2024 Chronic Osteoarthritis (3 sources) Osteoarthritis; Translations: [Unspecified osteoarthritis, unspecified site] Onset: 04-08-2013 12-18-2024 Chronic Other aftercare (1 source) Other retirement (current) drug therapy; Translations: [OTH RESIDENTIAL CURRENT DRUG THERAPY] Onset: 01-25-2023 Episodic Other connective tissue disease (3 sources) Pain in right lower limb; Translations: [Pain in right leg] Onset: 12-18-2024 12-18-2024 Episodic Other ear and sense organ disorders (3 sources) Chronic right myringitis; Translations: [Chronic myringitis, right ear] Onset: 12-18-2024 12-18-2024 Chronic Other ear and sense organ disorders (6 sources) Otorrhea of right ear; Translations: [Otorrhea, right ear] Onset: 12-18-2024 12-18-2024 Episodic Other gastrointestinal disorders (3 sources) Irritable bowel syndrome; Translations: [Irritable bowel syndrome without diarrhea] Onset: 04-08-2013 12-18-2024 Chronic Other upper respiratory disease (3 sources) Chronic pharyngitis; Translations: [Chronic pharyngitis] Onset: 12-18-2024 12-18-2024 Chronic Otitis media and related conditions (3 sources) Perforation of tympanic membrane; Translations: [Unspecified perforation of tympanic membrane, unspecified ear] Onset: 12-18-2024 12-18-2024 Episodic Pulmonary heart disease (2 sources) Pulmonary hypertension due to left heart disease; Translations: [Pulmonary hypertension due to left heart disease] Onset: 06-23-2025 Chronic Secondary malignancies (3 sources) Secondary malignant neoplasm of lymph nodes of neck; Translations: [Secondary and unspecified malignant neoplasm of lymph nodes of head, face and neck] Onset: 12-18-2024 12-18-2024 Chronic Spondylosis; intervertebral disc disorders; other back problems (3 sources) Herniation of nucleus pulposus of lumbar intervertebral disc; Translations: [Other intervertebral disc displacement, lumbar region] Onset: 12-18-2024 12-18-2024 Chronic Spondylosis; intervertebral disc disorders; other back problems (6 sources) Lumbar radiculopathy; Translations: [Radiculopathy, lumbar region] Onset: 04-08-2013 12-18-2024 Episodic Thyroid disorders (4 sources) Hypothyroidism, unspecified; Translations: [Hypothyroidism] Onset: 10-30-2019 12-18-2024 Chronic Unclassified (2 sources) Longstanding persistent atrial fibrillation; Translations: [Longstanding persistent atrial fibrillation] Onset: 06-23-2025 Past or Other Problems Problem Classification Problem Date Documented Da te Episodic/Chronic Calculus of urinary tract (3 sources) Kidney stone; Translations: [Calculus of kidney] Onset: 04-08-2013 12-18-2024 Episodic Diabetes mellitus without complication (1 source) Other abnormal glucose; Translations: [OTHER ABNORMAL GLUCOSE] Onset: 03-17-2022 Episodic Fluid and electrolyte disorders (3 sources) Moderate dehydration; Translations: [Dehydration] Onset: 05-30-2018 12-18-2024 Episodic Nonspecific chest pain (3 sources) Chest pain; Translations: [Chest pain, unspecified] Onset: 04-08-2013 12-18-2024 Episodic Other aftercare (3 sources) Long-term current use of drug therapy; Translations: [Other supervisor intermediates (current) drug therapy] Onset: 06-06-2023 12-18-2024 Episodic Other and unspecified benign neoplasm (3 sources) Benign neoplasm of colon; Translations: [Benign neoplasm of colon, unspecified] Onset: 04-08-2013 12-18-2024 Episodic Other diseases of kidney and ureters (3 sources) Acquired renal cystic disease; Translations: [Cyst of kidney, acquired] Onset: 04-08-2013 12-18-2024 Episodic Other ear and sense organ disorders (3 sources) Impacted cerumen; Translations: [Impacted cerumen, unspecified ear] Onset: 04-08-2013 12-18-2024 Episodic Other screening for suspected conditions (not mental disorders or infectious disease) (5 sources) Encounter for screening for malignant neoplasm of colon; Translations: [Encounter for screening for malignant neoplasm of prostate] Onset: 03-17-2022 12-18-2024 Episodic Lizzy-; endo-; and myocarditis; cardiomyopathy (except that caused by tuberculosis or sexually transmitted disease) (3 sources) Pericardial effusion; Translations: [Pericardial effusion] Onset: 10-30-2019 12-18-2024 Episodic Results Test Name Value Interpretation Reference Range Facility Office Visiton 06-23-2025 Follow-up visit [id number] Hoang Aquino 1935 M Date Provider Department Center 06/23/2025 REAL PAGAN EDD Tobias Family History Problem Relation Age of Onset Coronary artery disease Son Atrial fibrillation Son Hypertension Son Family Status - Relation Status Age at Mother Father Son Other Level of Service:92912 MS OFFICE/OUTPATIENT ESTABLISHED MOD MDM 30 MIN Normal [facility] Office Visiton 12-31-2024 Follow-up visit [id number] Hoang Aquino 1935 M Date Provider Department Center 12/31/2024 ANIL [facility] Bryn Tobias Family History Problem Relation Age of Onset Coronary artery disease Son Atrial fibrillation Son Hypertension Son Family Status - Relation Status Age at Son Other Level of Service:99461 MS OFFICE/OUTPATIENT ESTABLISHED LOW MDM 20 MIN Reason for Visit and Comments: Coronary Artery Disease [187] Hypertension [772440] Normal [facility] CBC AUTO DIFFon 03-15-2022 BASO # 0.0 103/ul Normal 0.0-0.1 [facility] Comment on above: Performed By: #### C BC #### [facility] [address] [address] [address] Lindsey Weiss Basophils/100 WBC (Bld) 0.5 % Normal 0.2-2.0 [facility] Comment on above: Performed By: #### C BC #### [facility] [address] [address] [address] Lindsey Weiss EO # 0.2 103/ul Normal 0.0-0.7 [facility] Comment on above: Performed By: #### C BC #### [facility] [address] [address] [address] Lindsey Weiss Eosinophils/100 WBC (Bld) 2.1 % Normal 0.9-7.0 [facility] Comment on above: Performed By: #### C BC #### [facility] [address] [address] [address] Lindsey Weiss Erythrocyte distribution width (RBC) [Ratio] 13.4 % Normal 11.0-15.0 [facility] Comment on above: Performed By: #### C BC #### [facility] [address] [place] [address] Dr. Lindsey Weiss Hematocrit (Bld) [Volume fraction] 34.1 % Critically low 42.0-54.0 [facility] Comment on above: Performed By: #### C BC #### [facility] [address] [address] [address] Lindsey Weiss Hemoglobin (Bld) [Mass/Vol] 11.2 g/dL Critically low 14.0-18.0 [facility] Comment on above: Performed By: #### C BC #### [facility] [address] [place] [address] Dr. Lindsey Weiss IG # 0.03 10e3/ul Normal 0.00-0.03 [facility] Comment on above: Performed By: #### C BC #### [facility] [address] [place] [address] Dr. Lindsey Weiss IG % 0.4 % Normal 0.0-0.5 [facility] Comment on above: Performed By: #### C BC #### [facility] [address] [place] [address] Dr. Lindsey Weiss LYMPH # 1.9 103/ul Normal 1.2-3.8 [facility] Comment on above: Performed By: #### C BC #### [facility] [address] [place] [address] Dr. Lindsey Weiss Lymphocytes/100 WBC (Bld) 23.8 % Normal 20.5-60.0 [facility] Comment on above: Performed By: #### C BC #### [facility] [address] [place] [address] Dr. Lindsey Weiss MANUAL DIFF REQ NO Normal [facility] Comment on above: Performed By: #### C BC #### [facility] [address] [place] [address] Dr. Lindsey Weiss MCH (RBC) [Entitic mass] 29.6 pg Normal 25.9-34.0 [facility] Comment on above: Performed By: #### C BC #### [facility] [address] [place] [address] Dr. Lindsey Weiss MCHC (RBC) [Mass/Vol] 32.8 g/dL Normal 29.9-35.2 [facility] Comment on above: Performed By: #### C BC #### [facility] [address] [place] [address] Dr. Lindsey Weiss MCV (RBC) [Entitic vol] 90.2 fL Normal 80.0-94.0 [facility] Comment on above: Performed By: #### C BC #### [facility] [address] [place] [address] Dr. Lindsey Weiss MONO # 0.6 103/ul Normal 0.3-0.8 [facility] Comment on above: Performed By: #### C BC #### [facility] [address] [place] [address] Dr. Lindsey Weiss Monocytes/100 WBC (Bld) 8.0 % Normal 1.7-12.0 [facility] Comment on above: Performed By: #### C BC #### [facility] [address] [place] [address] Dr. Lindsey Weiss NEUT # 5.1 103/ul Normal 1.4-6.5 [facility] Comment on above: Performed By: #### C BC #### [facility] [address] [place] [address] Dr. Lindsey Weiss Neutrophils/100 WBC (Bld) 65.2 % Normal 43.0-75.0 [facility] Comment on above: Performed By: #### C BC #### [facility] [address] [place] [address] Dr. Lindsey Weiss Platelet mean volume (Bld) [Entitic vol] 9.2 fL Critically low 9.5-13.5 [facility] Comment on above: Performed By: #### C BC #### [facility] [address] [place] [address] Dr. Lindsey Weiss PLT 209 103/ul Normal 150-450 [facility] Comment on above: Performed By: #### C BC #### [facility] [address] [place] [address] Dr. Lindsey Weiss RBC 3.78 106/ul Critically low 4.70-6.[address] [facility] Comment on above: Performed By: #### C BC #### [facility] [address] [place] [address] Dr. Lindsey Weiss WBC 7.8 103/ul Normal 4.0-11.0 [facility] Comment on above: Performed By: #### C BC #### [facility] [address] [place] [address] Dr. Lindsey Weiss FREE T3on 03-15-2022 FREE T3 3.29 pg/mlL Normal 2.18-3.98 [facility] Comment on above: Performed By: #### C MP, LIPID, FT3, TSH, T4 #### [facility] [address] [place] [address] Dr. Lindsey Weiss GLYCOHEMOGLOBIN A1Con 2021 ADA RECOMMENDATION SEE BELOW Normal [facility] Comment on above: Result Comment: ADA RECOMMENDED LIMIT 4.0 - 6.0 ADA THERAPEUTIC TARGET < 7.0 ACTION SUGGESTED > 7.0 Performed By: #### A 1C #### [facility] [address] [place] [address] Dr. Lindsey Weiss Glucose [Mass/Vol] 105 mg/dL Normal [facility] Comment on above: Performed By: #### A 1C #### [facility] [address] [place] [address] Dr. Lindsey Weiss HbA1c (Bld) [Mass fraction] 5.3 % Normal 4.5-6.2 [facility] Comment on above: Performed By: #### A 1C #### [facility] [address] [place] [address] Dr. Lindsey Weiss LIPID PROFILEon 03-15-2022 CHOL-HDL RATIO NORM SEE BELOW Normal [facility] Comment on above: Result Comment: 3.3 - 4.4 LOW RISK 4.4 - 7.1 AVERAGE RISK 7.1 - 11.0 MODERATE RISK >11.0 HIGH RISK Performed By: #### C MP, LIPID, FT3, TSH, T4 #### [facility] [address] [place] [address] Dr. Lindsey Weiss Cholesterol [Mass/Vol] 126 mg/dL Normal <=200 [facility] Comment on above: Performed By: #### C MP, LIPID, FT3, TSH, T4 #### [facility] [address] [place] [address] Dr. Lindsey Weiss Cholesterol in HDL [Mass/Vol] 39 mg/dL Critically low 40-60 [facility] Comment on above: Performed By: #### C MP, LIPID, FT3, TSH, T4 #### [facility] [address] [place] [address] Dr. Lindsey Weiss Cholesterol in LDL [Mass/Vol] 65.4 mg/dL Normal [facility] Comment on above: Performed By: #### C MP, LIPID, FT3, TSH, T4 #### [facility] [address] [address] [address] Lindsey Weiss Cholesterol.total/Ch olesterol in HDL [Mass ratio] 3.2 {ratio} Normal [facility] Comment on above: Performed By: #### C MP, LIPID, FT3, TSH, T4 #### [facility] [address] [address] [address] Lindsey Weiss HDL NORMAL > or = 60 mg/dl - LOW CARDIOVASCULAR RISK <40 mg/dl - HIGH CARDIOVASCULAR RISK Normal [facility] Comment on above: Performed By: #### C MP, LIPID, FT3, TSH, T4 #### [facility] [address] [address] [address] Lindsey Weiss LDL CALC NORMAL SEE BELOW Normal [facility] Comment on above: Result Comment: <100 mg/dl OPTIMAL 100 - 129 mg/dl NEAR OR ABOVE OPTIMAL 130 - 159 mg/dl BORDERLINE HIGH 160 - 189 mg/dl HIGH >190 mg/dl VERY HIGH Performed By: #### C MP, LIPID, FT3, TSH, T4 #### [facility] [address] [address] [address] Lindsey Weiss Triglyceride [Mass/Vol] 108 mg/dL Normal <=150 [facility] Comment on above: Performed By: #### C MP, LIPID, FT3, TSH, T4 #### [facility] [address] [address] [address] Lindsey Weiss VLDL CALC 21.6 mg/dL Normal [facility] Comment on above: Performed By: #### C MP, LIPID, FT3, TSH, T4 #### [facility] [address] [address] [address] Lindsey Weiss PROF 14(COMP METB)on 022 Albumin [Mass/Vol] 3.7 g/dL Normal 3.4-5.0 [facility] Comment on above: Performed By: #### C MP, LIPID, FT3, TSH, T4 #### [facility] [address] [place] [address] Dr. Lindsey Weiss Albumin/Globulin [Mass ratio] 0.9 {ratio} Normal [facility] Comment on above: Performed By: #### C MP, LIPID, FT3, TSH, T4 #### [facility] [address] [place] [address] Dr. Lindsey Weiss ALP [Catalytic activity/Vol] 171 U/L Critically high 46-116 [facility] Comment on above: Performed By: #### C MP, LIPID, FT3, TSH, T4 #### [facility] [address] [place] [address] Dr. Lindsey Weiss ALT [Catalytic activity/Vol] 35 U/L Normal 16-63 [facility] Comment on above: Performed By: #### C MP, LIPID, FT3, TSH, T4 #### [facility] [address] [place] [address] Dr. Lindsey Weiss Anion gap [Moles/Vol] 11.3 mmol/L Normal [facility] Comment on above: Performed By: #### C MP, LIPID, FT3, TSH, T4 #### [facility] [address] [place] [address] Dr. Lindsey Weiss AST [Catalytic activity/Vol] 27 U/L Normal 15-37 [facility] Comment on above: Performed By: #### C MP, LIPID, FT3, TSH, T4 #### [facility] [address] [place] [address] Dr. Lindsey Weiss Bilirubin [Mass/Vol] 0.6 mg/dL Normal 0.2-1.0 [facility] Comment on above: Performed By: #### C MP, LIPID, FT3, TSH, T4 #### [facility] [address] [place] [address] Dr. Lindsey Weiss Calcium [Mass/Vol] 9.4 mg/dL Normal 8.5-10.1 [facility] Comment on above: Performed By: #### C MP, LIPID, FT3, TSH, T4 #### [facility] [address] [place] [address] Dr. Lindsey Weiss Chloride [Moles/Vol] 102 mmol/L Normal 98-107 [facility] Comment on above: Performed By: #### C MP, LIPID, FT3, TSH, T4 #### [facility] [address] [place] [address] Dr. Lindsey Weiss CO2 [Moles/Vol] 30.1 mmol/L Normal 21.0-32.0 [facility] Comment on above: Performed By: #### C MP, LIPID, FT3, TSH, T4 #### [facility] [address] [place] [address] Dr. Lindsey Weiss Creatinine [Mass/Vol] 1.31 mg/dL Critically high 0.70-1.30 [facility] Comment on above: Performed By: #### C MP, LIPID, FT3, TSH, T4 #### [facility] [address] [place] [address] Dr. Lindsey Weiss EGFR-AF THAI >60 Normal >=60 [facility] Comment on above: Performed By: #### C MP, LIPID, FT3, TSH, T4 #### [facility] [address] [place] [address] Dr. Lindsey Weiss EGFR-NON AF THAI 52 mL/min/1.73m2 Critically low >=60 [facility] Comment on above: Performed By: #### C MP, LIPID, FT3, TSH, T4 #### [facility] [address] [place] [address] Dr. Lindsey Weiss Globulin (S) [Mass/Vol] 3.9 g/dL Normal [facility] Comment on above: Performed By: #### C MP, LIPID, FT3, TSH, T4 #### [facility] [address] [place] [address] Dr. Lindsey Weiss Glucose [Mass/Vol] 98 mg/dL Normal 74-106 [facility] Comment on above: Performed By: #### C MP, LIPID, FT3, TSH, T4 #### [facility] [address] [place] [address] Dr. Lindsey Weiss Potassium [Moles/Vol] 4.4 mmol/L Normal 3.5-5.1 [facility] Comment on above: Performed By: #### C MP, LIPID, FT3, TSH, T4 #### [facility] [address] [place] [address] Dr. Lindsey Weiss Protein [Mass/Vol] 7.6 g/dL Normal 6.1-8.2 [facility] Comment on above: Performed By: #### C MP, LIPID, FT3, TSH, T4 #### [facility] [address] [address] [address] Lindsey Weiss Sodium [Moles/Vol] 139 mmol/L Normal 136-145 [facility] Comment on above: Performed By: #### C MP, LIPID, FT3, TSH, T4 #### [facility] [address] [place] [address] Dr. Lindsey Weiss Urea nitrogen [Mass/Vol] 19.0 mg/dL Critically high 7.0-18.0 [facility] Comment on above: Performed By: #### C MP, LIPID, FT3, TSH, T4 #### [facility] [address] [place] [address] Dr. Lindsey Weiss Urea nitrogen/Creatinine [Mass ratio] 14.5 mg/mg Normal [facility] Comment on above: Performed By: #### C MP, LIPID, FT3, TSH, T4 #### [facility] [address] [place] [address] Dr. Lindsey Weiss T4on 03-15-2022 T4 [Mass/Vol] 9.30 ug/dL Normal 4.50-12.10 [facility] Comment on above: Performed By: #### C MP, LIPID, FT3, TSH, T4 #### [facility] [address] [place] [address] Dr. Lindsey Weiss TSHon 03-15-2022 TSH 0.013 uIU/mL Critically low 0.470-4.680 [facility] Comment on above: Performed By: #### C MP, LIPID, FT3, TSH, T4 #### [facility] [address] [place] [address] Dr. Lindsey Weiss TSH RANGE SEE BELOW Normal [facility] Comment on above: Result Comment: <0.3 4 UIU/ml HYPERTHYROID 0.34-5.60 UIU/ml EUTHYROID >5.60 UIU/ml HYPOTHYROID Performed By: #### C MP, LIPID, FT3, TSH, T4 #### [facility] [address] [address] [address] CHEST W IVCONon 1 CT CHEST W IVCON * * *Final Report* * * DATE OF EXAM: Sep 23 2021 8:54AM [facility] [place] 0539 - CT CHEST W IVCON / [...] No abnormality in the imaged upper abdomen. Meat Process Worker (topogram) images: No additional findings. IMPRESSION: 1. [...] any questions regarding this interpretation, please call [phone]. If you are unable to reach us at the number above, please feel free to contact [facility] at [phone]. [id number] CN Normal [facility] CT NECK SOFT TISSUE W IVCONo n 09-23-2021 CT NECK SOFT TISSUE W IVCON * * *Final Report* * * DATE OF EXAM: Sep 23 2021 8:54AM [facility] [place] 0013 - CT NECK SOFT TISSUE W [...] any questions regarding this interpretation, please call [phone]. If you are unable to reach us at the number above, please feel free to contact [facility] at [phone]. [id number] CN Normal [facility] Comp Metabolic Panelon 09-23 Albumin [Mass/Vol] 4.4 g/dL Normal 3.9-4.9 [facility] ALP [Catalytic activity/Vol] 167 U/L High 38-113 [facility] ALT [Catalytic activity/Vol] 17 U/L Normal 10-54 [facility] Anion gap [Moles/Vol] 11 mmol/L Normal 9-18 [facility] AST [Catalytic activity/Vol] 21 U/L Normal 14-40 [facility] Bilirubin [Mass/Vol] 0.7 mg/dL Normal 0.2-1.3 [facility] Calcium [Mass/Vol] 10.4 mg/dL High 8.5-10.2 [facility] Chloride [Moles/Vol] 103 mmol/L Normal 97-105 [facility] CO2 [Moles/Vol] 25 mmol/L Normal 22-30 [facility] Creatinine [Mass/Vol] 1.29 mg/dL High 0.73-1.22 [facility] eGFR- Amer. >60 Normal [facility] eGFR-All Other Races 53 . Normal [facility] Comment on above: Result Comment: eGFR [...] GFR. Glucose [Mass/Vol] 104 mg/dL High 74-99 [facility] Comment on above: Result Comment: The [place] [employer] Association (ADA) provides guidance for cutoff [...] Standards of Medical Care in Diabetes 2016, [place] [employer]. Diabetes Care. 2016.39(Suppl 1). Potassium [Moles/Vol] 4.1 mmol/L Normal 3.7-5.1 [facility] Protein [Mass/Vol] 7.4 g/dL Normal 6.3-8.0 [facility] Sodium [Moles/Vol] 139 mmol/L Normal 136-144 [facility] Urea nitrogen [Mass/Vol] 21 mg/dL Normal 9-24 [facility] Remote CBCDIF (for [facility] use o nly)on 09-23-2021 Abs Baso 0.03 k/uL Normal <0.11 [facility] Abs Daggett 0.70 k/uL Normal <0.87 [facility] Abs Neut 3.11 k/uL Normal 1.45-7.50 [facility] Absolute nRBC <0.01 Normal <0.01 [facility] Basophils/100 WBC (Bld) 0.5 % Normal [facility] DTYPE Auto Diff Normal [facility] Eosinophils (Bld) [#/Vol] 0.21 10*3/uL Normal <0.46 [facility] Eosinophils/100 WBC (Bld) 3.7 % Normal [facility] Erythrocyte distribution width (RBC) [Ratio] 13.6 % Normal 11.5-15.0 [facility] Hematocrit (Bld) [Volume fraction] 34.2 % Low 39.0-51.0 [facility] Hemoglobin (Bld) [Mass/Vol] 11.6 g/dL Low 13.0-17.0 [facility] Lymphocytes (Bld) [#/Vol] 1.66 10*3/uL Normal 1.00-4.00 [facility] Lymphocytes/100 WBC (Bld) 29.0 % Normal [facility] MCH 29.4 pG Normal 26.0-34.0 [facility] MCHC (RBC) [Mass/Vol] 33.9 g/dL Normal 30.5-36.0 [facility] MCV (RBC) [Entitic vol] 86.6 fL Normal 80.0-100.0 [facility] Monocytes/100 WBC (Bld) 12.2 % Normal [facility] Neutrophils/100 WBC (Bld) 54.6 % Normal [facility] NRBCs 0.0 /100 WBC Normal 0 [facility] Platelet mean volume (Bld) [Entitic vol] 9.8 fL Normal 9.0-12.7 [facility] Platelets (Bld) [#/Vol] 163 10*3/uL Normal 150-400 [facility] RBC (Bld) [#/Vol] 3.95 10*6/uL Low 4.20-6.00 [facility] WBC (Bld) [#/Vol] 5.73 10*3/uL Normal 3.70-11.00 [facility] CNPNon 09-06-2021 CNPN Telephone (PETSAN) HOANG AQUINO ([id number]) 1935 M Date Time Provider Department 09/06/21 [...] lymph node [R59.9] Order(s):CT CHEST W IVCON [[id number]] Order #: [id number] FUTURE iv contrast (will be provided with [...] Encounter Status:Closed by KAYLAH WILHELM on 09/06/21 Normal [facility] Vital Signs Date Time Vital Sign Value Performing Clinician Shilpa morales 12-18-2024 13:05-0500 Body height 167.6 cm cEho Roblero MD Work Phone: [facility] 12-18-2024 13:05-0500 Body mass index (BMI) [Ratio] 26.47 kg/m2 Echo Roblero MD Work Phone: [facility] 12-18-2024 13:05-0500 Body weight 74.39 kg Echo Roblero MD Work Phone: [facility] 12-18-2024 13:05-0500 Diastolic blood pressure 71 mm[Hg] Echo Roblero MD Work Phone: [facility] 12-18-2024 13:05-0500 Heart rate 61 /min Echo Roblero MD Work Phone: [facility] 12-18-2024 13:05-0500 Systolic blood pressure 156 mm[Hg] Echo Roblero MD Work Phone: [facility] Healthcare Encounters Encounter Date Encounter Type Care Provider Facility Start: 06-23-2025 End: 06-23-2025 ambulatory [facility] Start: 12-31-2024 End: 12-31-2024 ambulatory [facility] Start: 12-27-2024 End: 01-03-2025 Telephone encounter Echo Roblero MD Work Phone: [facility] Start: 12-18-2024 End: 12-18-2024 Bamboo flowsheet Echo Roblero MD Work Phone: [facility] Start: 12-18-2024 End: 12-18-2024 Bamboo flowsheet Echo Roblero MD Work Phone: [facility] Start: 12-18-2024 End: 12-18-2024 ambulatory ECHO ROBLERO Not Available Start: 12-18-2024 End: 12-18-2024 Office outpatient visit 25 minutes Echo Roblero MD Work Phone: [facility] Comment on above: Otorrhea of right ea r (Primary Dx); 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 Facility: Procedures Date Procedure Procedure Detail Performing Clinician Start: 03-15-2022 PSA screening BETTY CARRERA Comment on above: Performed By: #### P [facility] #### [facility] [address] [place] [address] Dr. Lindsey Weiss Plan of Treatment Date Care Activity Detail Author Start: 12-18-2024 End: 12-18-2025 Ear culture Ear culture Microbiology Routine Otorrhea of right ear Expected: 12/18/2024 (Approximate), Expires: 12/18/2025 [facility] Work Phone: Comment on above: Expected: 12/18/2024 (Approximate), Expires: 12/18/2025 Start: 07-21-2024 Influenza vaccination Influenza Vacc ine (#1) [facility] Start: 2002 Pneumococcal Vaccine : 65+ Years (1 of 1 - PCV) Pneumococcal Vaccine: 65+ Years (1 of 1 - PCV) [facility] Payers Date Payer Category Payer Unknown [id number] 2019 [facility] [id number] 2001 Medicare MEDICARE [id number] 1959 Medicare [id number] 1959 Unknown [id number] 1935 Unknown [id number] 1935 Unknown [id number] 1935 Unknown [id number] Social History Date Type Detail Facility Tobacco smoking stat [facility] Tobacco smoking consumption unknown [facility] Start: 1935 Sex assigned at Not on file [facility] Start: 12-18-2024 Gender identity Not on file [facility] Start: 12-18-2024 Tobacco smoking stat [facility] Never smoked tobacco [facility] Start: 12-18-2024 Tobacco use and exposure Smokeless t obacco non-user [facility] Start: 12-18-2024 Alcoholic beverage intake Ex-drinker (finding) [facility] Start: 12-18-2024 History of Social function [facility] Clinical Notes 09-23-2021 to 06-23-2025 Telephone Encounter - Alaina Milligan - 12/27/2024 3:10 PM ESTTelephone Encounter - Alaina Milligan - 12/27/2024 3:10 PM ESTTelephone Encounter - Echo Roblero MD - 12/27/2024 12:36 PM EST Note Date & Type Note Facility 06-23-2025 Note [facility] Subjective Hoang Aquino is a 89 y.o. year old male patient being seen for 6 mo follow up. Patient states he's been better. Patient denies chest pain, SOB, DENISE, fatigue, palpitations/racing heart, leg swelling. 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 This did not [...] no dizziness. He has no claudication. His main complaint is joint pains from his knees. His blood pressure is elevated. Review of Systems Musculoskeletal: Positive for joint pain. Objective Visit Vitals BP 157/58 (BP Location: Right arm, Patient Position: Sitting) Pulse 62 Ht 1.676 m (5' 6 ) Wt 74.8 kg (165 lb) SpO2 99% BMI 26.63 kg/m??? Smoking Status Former BSA 1.87 m??? Physical Exam Constitutional: Appearance: He is [...] General: No swelling. Cervical back: Neck supple. Right lower le+ Pitting Edema present. Left lower le+ Pitting Edema present. Skin: General: Skin is warm and dry. Neurological: General: No focal deficit present. Mental Status: He is alert and oriented to person, place, and time. Psychiatric: Mood and Affect: Mood normal. Behavior: Behavior is cooperative. Judgment: Judgment normal. Allergies No Known Allergies Medications Current Outpatient Medications: apixaban (Eliquis) 2.5 mg tablet, Take 1 tablet (2.5 mg) by mouth every 12 (twelve) hours., Disp: 180 tablet, Rfl: 3 aspirin 81 mg chewable tablet, Chew 81 mg in the morning., Disp: , Rfl: atorvastatin (Lipitor) 40 mg tablet, TAKE ONE TABLET BY MOUTH ONCE DAILY, Disp: 90 tablet, Rfl: 3 doxazosin (Cardura) 4 mg tablet, RADHA (more content not included)... [facility] 12-31-2024 Note Cardiovascular Medic [facility] SUBJECTIVE Chief Complaint Patient presents with Coronary Artery Disease Hypertension Hoang Aquino is a 89 y.o. male here for follow-up. HPI PMHx: CAD s/p drug eluting stenting of the RCA in March 2013 [At that time he had 30% narrowing in the LAD and circumflex vessels], paroxsymal a.fib, HTN, HLD He was diagnosed to have brain cancer in March 2018 and treated with chemo and radiation. 12/31/2024 Patient here for 6 mo follow up CAD, persistent afib, hypertension, and hyperlipidemia. At last apt in May 2024, Dr. Gomez increased doxazosin to 2mg in the morning, and 4mg in the evening. Patient was also asked to resume furosemide 20mg every other day. Had routine labs w/ lipid panel after last apt. He's doing very well. Denies chest pain, SOB, palpitations, lightheadedness/syncope, and bleeding on Eliquis. Says his BP was 139/75 when he checked it today before he left the house. His BP at home typically runs less than 140/80. He states he feels well as far as his heart goes. Denies c/o CP, dyspnea, orthopnea, PND, LE edema, dizziness/LH, palpitations, syncope. 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) Otorrhea of right ear Perforation of tympanic membrane Right leg pain Past Medical History: Diagnosis Date Atrial fibrillation (CMS/HCC) Chronic kidney disease Coronary artery disease Hyperlipidemia Hypertension Hypothyroidism Pericardial effusion Family History Problem Relation Name Age of Onset Coronary artery disease Son Moo Atrial fibrillation Son Moo Hypertension Son Moo Social History Tobacco Use Smoking status: Former Types: Cigarettes Substance Use Topics Alcohol use: Yes Comment: occasional No Known Allergies Review of Systems Constitutional: Negative for chills, decreased appetite, fever, malaise/fatigue and weight gain. Cardiovascular: Negative for chest pain, dyspnea on exertion, irregular heartbeat, leg swelling, near-syncope, orthopnea, palpitations, paroxysmal nocturnal dyspnea and syncope. Hematologic/Lymphatic: Negative for bleeding problem. Does not bruise/bleed easily. OBJECTIVE Visit Vitals BP 168/72 (BP Location: Right arm, Patient Position: Sitting) Pulse 56 Ht 1.676 m (5' 6 ) Wt 73.5 kg (162 lb) SpO2 98% BMI 26.15 kg/m??? Smoking Status Former BSA 1.85 m??? Medications: Current Outpatient Medications: amLODIPine (Norvasc) 10 mg tablet, amlodipine 10 mg tablet TAKE ONE TABLET BY MOUTH ONCE DAILY, Disp: , Rfl: apixaban (Eliquis) 2.5 mg tablet, Take 1 tablet (2.5 mg) by mouth every 12 (twelve) hours., Disp: 180 tablet, Rfl: 3 aspirin 81 mg chewable tablet, Chew 81 mg in the morning., Disp: , Rfl: atorvastatin (Lipitor) 40 mg tablet, TAKE ONE TABLET BY MOUTH ONCE DAILY, Disp: 90 tablet, Rfl: 3 dicyclomine (Bentyl) 20 mg tablet, dicyclomine 20 mg tablet TAKE 1 TABLET BY MOUTH THREE TIMES A DAY, Disp: , Rfl: doxazosin (Cardura) 4 mg tablet, Take 1.5 tablets (6 mg) by mouth once daily as directed. Take 0.5 tablet in the morning and 1 tablet in the evening., Disp: 135 tablet, Rfl: 3 furosemide (Lasix) 20 mg tablet, Take 1 tablet (20 mg) by mouth every other day., Disp: 45 tablet, Rfl: 3 levothyroxine (Synthroid, Levoxyl) 125 mcg tablet, Take 125 mcg by mouth in the morning., Disp: , Rfl: liothyronine (Cytomel) 5 mcg tablet, liothyronine 5 mcg tablet TAKE TWO TABLETS BY MOUTH ONCE DAILY, Disp: , Rfl: metoprolol succinate XL (Toprol-XL) 100 mg 24 hr tablet, metoprolol succinate ER 100 mg tablet,extended release 24 hr TAKE ONE TABLET BY MOUTH ONCE DAILY, Disp: 90 tablet, Rfl: 3 Physical Exam Constitutional: Appearance: Normal appearance. He is normal weight. HENT: Head: Normocephalic and atraumatic. Right Ear: External ear normal. Left Ear: External ear normal. Eyes: Extraocular Movements: Extraocular movements intact. Pupils: Pupils are equal, round, and reactive to light. Neck: Vascular: No carotid bruit. Cardiovascular: Rate and Rhythm: No (more content not included)... [facility] 12-31-2024 Note Patient here for 6 m o follow up CAD, persistent afib, hypertension, and hyperlipidemia. At last apt in May 2024, Dr. Gomez increased doxazosin to 2mg in the morning, and 4mg in the evening. Patient was also asked to resume furosemide 20mg every other day. Had routine labs w/ lipid panel after last apt. He's doing very well. Denies chest pain, SOB, palpitations, lightheadedness/syncope, and bleeding on Eliquis. Says his BP was 139/75 when he checked it today before he left the house. Review of Systems All other systems reviewed and are negative. [facility] 12-27-2024 Telephone encounter Note Tried to call pt but it just rings [facility] 12-27-2024 Miscellaneous Notes Tried to call pt but it just rings RX sent in per cx documented in this encounter [facility] 12-27-2024 Telephone encounter Note RX sent in per cx [facility] 12-18-2024 History of Present illness Narrative Images from the original note were not included. Subjective Patient ID: Hoang Aquino is a 89 y.o. male who presents for Cancer (Yearly check lost to follow up ) C/O right otorrhea No family history on file. 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[facility]/HCC) 12/19/2022 Hyperlipidemia ([facility]/HCC) 04/08/2013 Hypertensive disorder ([facility]/HCC) 12/19/2022 Hypothyroidism ([facility]/HCC) 10/30/2019 Impacted cerumen 04/08/2013 Irritable bowel syndrome 04/08/2013 Kidney stone 04/08/2013 Lumbar radiculopathy 12/18/2024 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 ([facility]/HCC) 12/18/2024 Mild aortic valve regurgitation 11/22/2023 Mild mitral valve regurgitation 11/22/2023 Moderate dehydration 05/30/2018 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/01/2018 Chronic pharyngitis 12/18/2024 Osteoarthritis 04/08/2013 Other retirement (current) drug therapy 06/06/2023 Other specified abnormal findings of blood chemistry 06/06/2023 Paroxysmal atrial fibrillation (CMS/HCC) 12/19/2022 Otorrhea of right ear 12/18/2024 Perforation of tympanic membrane 12/18/2024 Pericardial effusion 10/30/2019 Right leg pain 12/18/2024 Sciatica 04/08/2013 Resolved Ambulatory Problems Diagnosis Date Noted No Resolved Ambulatory Problems No Additional Past Medical History Past Surgical History: Procedure Laterality Date CORONARY ANGIOPLASTY WITH STENT PLACEMENT CT GUIDED ASPIRATION OF ABSCESS, HEMATOMA, CYST 10/18/2019 CT GUIDED ASPIRATION OF ABSCESS, HEMATOMA, CYST 10/18/2019 No Known Allergies Current Outpatient Medications on File Prior to Visit Medication Sig Dispense Refill apixaban (Eliquis) 2.5 MG tablet Take 2.5 mg by mouth every 12 (twelve) hours atorvastatin (Lipitor) 40 MG tablet Take 40 mg by mouth Daily cetirizine (ZyrTEC) 10 MG tablet Take 10 mg by mouth Daily Diclofenac 35 MG capsule every 8 (eight) hours dicyclomine (Bentyl) 20 MG tablet TAKE ONE TABLET BY MOUTH THREE TIMES A DAY FOR 30 DAYS doxazosin (Cardura) 4 MG tablet Take 6 mg by mouth FeroSul 325 (65 Fe) MG tablet Take 1 tablet by mouth in the morning and 1 tablet before bedtime. hyoscyamine (Levsin) 0.[address] ONE TABLET UNDER TONGUE AND ALLOW TO DISSOLVE TWICE A DAY ( IN THE MORNING AND AT BEDTIME ) levothyroxine (Synthroid, Levoxyl) 112 MCG tablet TAKE ONE TABLET BY MOUTH ONCE DAILY IN THE MORNING ON AN EMPTY STOMACH metoprolol succinate XL (Toprol-XL) 100 MG 24 hr tablet TAKE ONE TABLET BY MOUTH DAILY 90 No current facility-administered medications on file prior to visit. Objective Last Recorded Vitals Vitals: 12/18/24 1305 BP: 156/71 Pulse: 61 ENT Physical Exam Ear Ear comments: RT otorrhea. Cx obtained Neck Neck: neck normal; neck palpation normal; Thyroid: thyroid normal; Patient ID: Hoang Aquino is a 89 y.o. male. Procedures After nasal decongestion, a diagnostic nasal endoscopy was performed on the left. There is no LEAD SCIENTIST mass or ulcer evident Assessment/Plan Diagnoses and all orders for this visit: Otorrhea of right ear - Ear culture; Future Nasopharyngeal carcinoma (CMS/HCC) Cx obtained from RT ear. Will tx with oral and topical abx. No evidence of recurrent NPC documented in this encounter [facility] 01-19-2023 Note OPERATIVE NOTE OPERATION DATE: 01/19/2023 [...] ensuring mobility, phacoemulsification was performed in a [id number]-type fashion. After all nuclear material had been [...] the following day for postoperative care. [facility] 01-19-2023 Note PREOPERATIVE HISTORY AND PHYSICAL [...] go forward with his elective procedure. [facility] 09-23-2021 Note HNO ID: [id number] Author: Katy Spence RT(R) Service: ? Author Type: Technologist Type: Progress [...] RT Domo(R) September 23, 2021 8:50 AM [facility] Evaluation note Diagnosis Otorrhea of right ear- Primary Nasopharyngeal carcinoma (CMS/HCC) Malignant neoplasm of nasopharynx, unspecified site [facility] Otorrhea of right ear- Primary documented in this encounter [facility] Summary Purpose Family History No Family History Records FoundNo Family History Records FoundNo Family History Records FoundNo Family History Records Found Advance Directives No Advanced Directives Records FoundNo Advanced Directives Records FoundNo Advanced Directives Records FoundNo Advanced Directives Records Found Additional Source Comments (unrecognized sect ion and content) No Status Records FoundNo Status Records FoundNo Status Records FoundNo Status Records Found INFORMATION SOURCE (unrecogn ized section and content) DATE CREATED AUTHOR 12/24/2021 [facility] DATE CREATED AUTHOR AUTHOR'S ORGANIZ ATION 01/27/2023 [facility] DATE CREATED AUTHOR AUTHOR'S ORGANIZ ATION 12/20/2024 [facility] DATE CREATED AUTHOR AUTHOR'S ORGANIZ ATION 06/25/2025 [facility] Care Teams (unrecognized sec tion and content) Art History Instructor Relationship Specialty Start Date End Date Tim Smith MD [address] [place] [phone] PCP - General Family Medicine 12/18/24 Art History Instructor Relationship Specialty Start Date End Date Tim Smith MD [address] [place] [address] PCP - General Family Medicine 12/18/24 Art History Instructor Relationship Specialty Start Date End Date Tim Smith MD [address] [place] [id number] [phone] PCP - General Family Medicine 12/18/24 Reason for Visit (unrecogniz ed section and content) Reason Comments Cancer Yearly check lost to follow up FOR RECORDS PERTAINING TO PATIENTS WHO ARE [...] BE BASED ON THE PRIMARY CLINICAL RECORDS. [employer] [facility]. provides no warranty or guarantee of the accuracy or completeness of information in this document.
[2025-08-05 13:57] LABS: Hematocrit 39.6 % (42.0-54.0); Hemoglobin 13.5 g/dL (14.0-18.0); Immature Granulocytes Abs Auto 0.04 10^3/uL (0.00-0.03); Immature Granulocytes Pct Auto 0.7 % (0.0-0.5); Lymphocytes Absolute Auto 1.5 10^3/uL (1.2-3.8); Mean Corpuscular HGB Conc 34.1 g/dL (29.9-35.2); Mean Corpuscular Hemoglobin 31.0 pg (25.9-34.0); Mean Corpuscular Volume 90.8 fL (80.0-94.0); Platelet Count 153 10^3/uL (150-450); Red Blood Count 4.36 10^6/uL (4.70-6.10); White Blood Count 5.7 10^3/uL (4.0-11.0)
--- OUTSIDE RECORDS SUMMARY | 2025-08-05 14:17 | XMS_ITS | CCD ---
Author Organization [facility] Care Team Providers Care Vat House Supervisor Name Role Phone BETTY CARRERA Admitting Unavailable BETTY CARRERA Attending Unavailable FÉLIX Soria, DR DUMONT Primary Care Unavailable BETTY CARRERA Consulting Unavailable FÉLIX ., DR DUMONT Admitting Unavailable FÉLIX ., DR DUMONT Attending Unavailable FÉLIX ., DR DUMONT Primary Care Unavailable FÉLIX ., DR DUMONT Consulting Unavailable Tim Smith MD Primary Care Provider [phone] ECHO ROBLERO Attending Unavailable ANIL OLPEZ Attending Unavailable REAL GOMEZ Attending Unavailable Medications [...] disease (6 sources) Atherosclerotic heart disease of [place] coronary artery without angina pectoris; Translations: [Coronary [...] Other correction (current) drug therapy; Translations: [OTH PRISON CURRENT DRUG THERAPY] Onset: 01-25-2023 Episodic Other [...] current use of drug therapy; Translations: [Other intermediate designer (current) drug therapy] Onset: 06-06-2023 12-18-2024 Episodic [...] Range Facility Office Visiton 06-23-2025 Follow-up visit [id number] Hoang Aquino 1935 M Date Provider Department Center 06/23/2025 REAL PAGAN EDD Tobias Family History Problem Relation Age of Onset Coronary artery disease Son Atrial fibrillation Son Hypertension Son Family Status - Relation Status Age at Mother Father Son Other Level of Service:04703 MT OFFICE/OUTPATIENT ESTABLISHED MOD MDM 30 MIN Normal [facility] Office Visiton 12-31-2024 Follow-up visit [id number] Hoang Aquino 1935 M Date Provider Department Center 12/31/2024 ANIL COATES [facility] Bryn Tobias Family History Problem Relation Age of Onset Coronary artery disease Son Atrial fibrillation Son Hypertension Son Family Status - Relation Status Age at Son Other Level of Service:18813 MT OFFICE/OUTPATIENT ESTABLISHED LOW MDM 20 MIN Reason for Visit and Comments: Coronary Artery Disease [187] Hypertension [083377] Normal [facility] CBC AUTO DIFFon 03-15-2022 BASO # 0.0 103/ul Normal 0.0-0.1 [facility] Comment on above: Performed By: #### C BC #### [facility] [address] [address] [address] Lindsey Weiss Basophils/100 WBC (Bld) 0.5 % Normal 0.2-2.0 [facility] Comment on above: Performed By: #### C BC #### [facility] [address] [address] [address] Lindsey Weiss EO # 0.2 103/ul Normal 0.0-0.7 [facility] Comment on above: Performed By: #### C BC #### [facility] [address] [address] [address] Lindsey Weiss Eosinophils/100 WBC (Bld) 2.1 % Normal 0.9-7.0 [facility] Comment on above: Performed By: #### C BC #### [facility] [address] [address] [address] Lindsey Weiss Erythrocyte distribution width (RBC) [Ratio] 13.4 % Normal 11.0-15.0 [facility] Comment on above: Performed By: #### C BC #### [facility] [address] [place] [address] Dr. Lindsey Weiss Hematocrit (Bld) [Volume fraction] 34.1 % Critically low 42.0-54.0 [facility] Comment on above: Performed By: #### C BC #### [facility] [address] [address] [address] Lindsey Weiss Hemoglobin (Bld) [Mass/Vol] 11.2 g/dL Critically low 14.0-18.0 [facility] Comment on above: Performed By: #### C BC #### [facility] [address] [place] [address] Dr. Lindsey Weiss IG # 0.03 10e3/ul Normal 0.00-0.03 [facility] Comment on above: Performed By: #### C BC #### [facility] [address] [place] [address] Dr. Lindsey Weiss IG % 0.4 % Normal 0.0-0.5 [facility] Comment on above: Performed By: #### C BC #### [facility] [address] [place] [address] Dr. Lindsey Weiss LYMPH # 1.9 103/ul Normal 1.2-3.8 [facility] Comment on above: Performed By: #### C BC #### [facility] [address] [place] [address] Dr. Lindsey Weiss Lymphocytes/100 WBC (Bld) 23.8 % Normal 20.5-60.0 [facility] Comment on above: Performed By: #### C BC #### [facility] [address] [place] [address] Dr. Lindsey Weiss MANUAL DIFF REQ NO Normal [facility] Comment on above: Performed By: #### C BC #### [facility] [address] [place] [address] Dr. Lindsey Weiss MCH (RBC) [Entitic mass] 29.6 pg Normal 25.9-34.0 [facility] Comment on above: Performed By: #### C BC #### [facility] [address] [place] [address] Dr. Lindsey Weiss MCHC (RBC) [Mass/Vol] 32.8 g/dL Normal 29.9-35.2 [facility] Comment on above: Performed By: #### C BC #### [facility] [address] [place] [address] Dr. Lindsey Weiss MCV (RBC) [Entitic vol] 90.2 fL Normal 80.0-94.0 [facility] Comment on above: Performed By: #### C BC #### [facility] [address] [place] [address] Dr. Lindsey Weiss MONO # 0.6 103/ul Normal 0.3-0.8 [facility] Comment on above: Performed By: #### C BC #### [facility] [address] [place] [address] Dr. Lindsey Weiss Monocytes/100 WBC (Bld) 8.0 % Normal 1.7-12.0 [facility] Comment on above: Performed By: #### C BC #### [facility] [address] [place] [address] Dr. Lindsey Weiss NEUT # 5.1 103/ul Normal 1.4-6.5 [facility] Comment on above: Performed By: #### C BC #### [facility] [address] [place] [address] Dr. Lindsey Weiss Neutrophils/100 WBC (Bld) 65.2 % Normal 43.0-75.0 [facility] Comment on above: Performed By: #### C BC #### [facility] [address] [place] [address] Dr. Lindsey Weiss Platelet mean volume (Bld) [Entitic vol] 9.2 fL Critically low 9.5-13.5 [facility] Comment on above: Performed By: #### C BC #### [facility] [address] [place] [address] Dr. Lindsey Weiss PLT 209 103/ul Normal 150-450 [facility] Comment on above: Performed By: #### C BC #### [facility] [address] [place] [address] Dr. Lindsey Weiss RBC 3.78 106/ul Critically low 4.70-6.10 [facility] Comment on above: Performed By: #### C BC #### [facility] [address] [place] [address] Dr. Lindsey Weiss WBC 7.8 103/ul Normal 4.0-11.0 [facility] Comment on above: Performed By: #### C BC #### [facility] [address] [place] [address] Dr. Lindsey Weiss FREE T3on 03-15-2022 FREE T3 3.29 pg/mlL Normal 2.18-3.98 [facility] Comment on above: Performed By: #### C MP, LIPID, FT3, TSH, T4 #### [facility] [address] [place] [address] Dr. Lindsey Weiss GLYCOHEMOGLOBIN A1Con 2021 ADA RECOMMENDATION SEE BELOW Normal [facility] Comment on above: Result Comment: ADA RECOMMENDED LIMIT 4.0 - 6.0 ADA THERAPEUTIC TARGET < 7.0 ACTION SUGGESTED > 7.0 Performed By: #### A 1C #### [facility] [address] [place] [address] Dr. Lindsey Weiss Glucose [Mass/Vol] 105 mg/dL Normal [facility] Comment on above: Performed By: #### A 1C #### [facility] [address] [place] [address] Dr. Lindsey Weiss HbA1c (Bld) [Mass fraction] 5.3 % Normal 4.5-6.2 [facility] Comment on above: Performed By: #### A 1C #### [facility] [address] [place] [address] Dr. Lindsey Weiss LIPID PROFILEon 03-15-2022 CHOL-HDL RATIO NORM SEE BELOW Normal [facility] Comment on above: Result Comment: 3.3 - 4.4 LOW RISK 4.4 - 7.1 AVERAGE RISK 7.1 - 11.0 MODERATE RISK >11.0 HIGH RISK Performed By: #### C MP, LIPID, FT3, TSH, T4 #### [facility] [address] [place] [address] Dr. Lindsey Weiss Cholesterol [Mass/Vol] 126 mg/dL Normal <=200 [facility] Comment on above: Performed By: #### C MP, LIPID, FT3, TSH, T4 #### [facility] [address] [place] [address] Dr. Lindsey Weiss Cholesterol in HDL [Mass/Vol] 39 mg/dL Critically low 40-60 [facility] Comment on above: Performed By: #### C MP, LIPID, FT3, TSH, T4 #### [facility] [address] [place] [address] Dr. Lindsey Weiss Cholesterol in LDL [Mass/Vol] 65.4 mg/dL Normal [facility] Comment on above: Performed By: #### C MP, LIPID, FT3, TSH, T4 #### [facility] [address] [address] [address] Lindsey Weiss Cholesterol.total/Ch olesterol in HDL [Mass ratio] 3.2 {ratio} Normal [facility] Comment on above: Performed By: #### C MP, LIPID, FT3, TSH, T4 #### [facility] [address] [address] [address] Lindsey Weiss HDL NORMAL > or = 60 mg/dl - LOW CARDIOVASCULAR RISK <40 mg/dl - HIGH CARDIOVASCULAR RISK Normal [facility] Comment on above: Performed By: #### C MP, LIPID, FT3, TSH, T4 #### [facility] [address] [address] [address] Lindsey Weiss LDL CALC NORMAL SEE BELOW Normal [facility] Comment on above: Result Comment: <100 mg/dl OPTIMAL 100 - 129 mg/dl NEAR OR ABOVE OPTIMAL 130 - 159 mg/dl BORDERLINE HIGH 160 - 189 mg/dl HIGH >190 mg/dl VERY HIGH Performed By: #### C MP, LIPID, FT3, TSH, T4 #### [facility] [address] [address] [address] Lindsey Weiss Triglyceride [Mass/Vol] 108 mg/dL Normal <=150 [facility] Comment on above: Performed By: #### C MP, LIPID, FT3, TSH, T4 #### [facility] [address] [address] [address] Lindsey Weiss VLDL CALC 21.6 mg/dL Normal [facility] Comment on above: Performed By: #### C MP, LIPID, FT3, TSH, T4 #### [facility] [address] [address] [address] Lindsey Weiss PROF 14(COMP METB)on 022 Albumin [Mass/Vol] 3.7 g/dL Normal 3.4-5.0 [facility] Comment on above: Performed By: #### C MP, LIPID, FT3, TSH, T4 #### [facility] [address] [place] [address] Dr. Lindsey Weiss Albumin/Globulin [Mass ratio] 0.9 {ratio} Normal [facility] Comment on above: Performed By: #### C MP, LIPID, FT3, TSH, T4 #### [facility] [address] [place] [address] Dr. Lindsey Weiss ALP [Catalytic activity/Vol] 171 U/L Critically high 46-116 [facility] Comment on above: Performed By: #### C MP, LIPID, FT3, TSH, T4 #### [facility] [address] [place] [address] Dr. Lidnsey Weiss ALT [Catalytic activity/Vol] 35 U/L Normal 16-63 [facility] Comment on above: Performed By: #### C MP, LIPID, FT3, TSH, T4 #### [facility] [address] [place] [address] Dr. Lindsey Weiss Anion gap [Moles/Vol] 11.3 mmol/L Normal [facility] Comment on above: Performed By: #### C MP, LIPID, FT3, TSH, T4 #### [facility] [address] [place] [address] Dr. Lindsey Weiss AST [Catalytic activity/Vol] 27 U/L Normal 15-37 [facility] Comment on above: Performed By: #### C MP, LIPID, FT3, TSH, T4 #### [facility] [address] [place] [address] Dr. Lindsey Weiss Bilirubin [Mass/Vol] 0.6 mg/dL Normal 0.2-1.0 [facility] Comment on above: Performed By: #### C MP, LIPID, FT3, TSH, T4 #### [facility] [address] [place] [address] Dr. Lindsey Weiss Calcium [Mass/Vol] 9.4 mg/dL Normal 8.5-10.1 [facility] Comment on above: Performed By: #### C MP, LIPID, FT3, TSH, T4 #### [facility] [address] [place] [address] Dr. Lindsey Weiss Chloride [Moles/Vol] 102 mmol/L Normal 98-107 [facility] Comment on above: Performed By: #### C MP, LIPID, FT3, TSH, T4 #### [facility] [address] [place] [address] Dr. Lindsey Weiss CO2 [Moles/Vol] 30.1 mmol/L Normal 21.0-32.0 [facility] Comment on above: Performed By: #### C MP, LIPID, FT3, TSH, T4 #### [facility] [address] [place] [address] Dr. Lindsey Weiss Creatinine [Mass/Vol] 1.31 mg/dL Critically high 0.70-1.30 [facility] Comment on above: Performed By: #### C MP, LIPID, FT3, TSH, T4 #### [facility] [address] [place] [address] Dr. Lindsey Weiss EGFR-AF FIJIAN >60 Normal >=60 [facility] Comment on above: Performed By: #### C MP, LIPID, FT3, TSH, T4 #### [facility] [address] [place] [address] Dr. Lindsey Weiss EGFR-NON AF FIJIAN 52 mL/min/1.73m2 Critically low >=60 [facility] Comment on above: Performed By: #### C MP, LIPID, FT3, TSH, T4 #### [facility] [address] [place] [address] Dr. Lindsey Weiss Globulin (S) [Mass/Vol] 3.9 g/dL Normal [facility] Comment on above: Performed By: #### C MP, LIPID, FT3, TSH, T4 #### [facility] [address] [place] [address] Dr. Lindsey Weiss Glucose [Mass/Vol] 98 mg/dL Normal 74-106 [facility] Comment on above: Performed By: #### C MP, LIPID, FT3, TSH, T4 #### [facility] [address] [place] [address] Dr. Lindsey Weiss Potassium [Moles/Vol] 4.4 mmol/L Normal 3.5-5.1 [facility] Comment on above: Performed By: #### C MP, LIPID, FT3, TSH, T4 #### [facility] [address] [place] [address] Dr. Lindsey Weiss Protein [Mass/Vol] 7.6 g/dL Normal 6.1-8.2 [facility] Comment on above: Performed By: #### C MP, LIPID, FT3, TSH, T4 #### [facility] [address] [address] [address] Lindsey Weiss Sodium [Moles/Vol] 139 mmol/L Normal 136-145 [facility] Comment on above: Performed By: #### C MP, LIPID, FT3, TSH, T4 #### [facility] [address] [place] [address] Dr. Lindsey Weiss Urea nitrogen [Mass/Vol] 19.0 mg/dL Critically high 7.0-18.0 [facility] Comment on above: Performed By: #### C MP, LIPID, FT3, TSH, T4 #### [facility] [address] [place] [address] Dr. Lindsey Weiss Urea nitrogen/Creatinine [Mass ratio] 14.5 mg/mg Normal [facility] Comment on above: Performed By: #### C MP, LIPID, FT3, TSH, T4 #### [facility] [address] [place] [address] Dr. Lindsey Weiss T4on 03-15-2022 T4 [Mass/Vol] 9.30 ug/dL Normal 4.50-12.10 [facility] Comment on above: Performed By: #### C MP, LIPID, FT3, TSH, T4 #### [facility] [address] [place] [address] Dr. Lindsey Weiss TSHon 03-15-2022 TSH 0.013 uIU/mL Critically low 0.470-4.680 [facility] Comment on above: Performed By: #### C MP, LIPID, FT3, TSH, T4 #### [facility] [address] [place] [address] Dr. Lindsey Weiss TSH RANGE SEE BELOW Normal [facility] Comment on above: Result Comment: <0.3 4 UIU/ml HYPERTHYROID 0.34-5.60 UIU/ml EUTHYROID >5.60 UIU/ml HYPOTHYROID Performed By: #### C MP, LIPID, FT3, TSH, T4 #### [facility] [address] [address] [address] CHEST W IVCONon 1 CT CHEST W IVCON * * *Final Report* * * DATE OF EXAM: Sep 23 2021 8:54AM [facility] 0539 - CT CHEST W [...] No abnormality in the imaged upper abdomen. Senior [employer] Consultant (topogram) images: No additional findings. IMPRESSION: 1. [...] any questions regarding this interpretation, please call [phone]. If you are unable to reach us at the number above, please feel free to contact [facility] at [phone]. [id number] CN Normal [facility] CT NECK SOFT TISSUE W IVCONo n 09-23-2021 CT NECK SOFT TISSUE W IVCON * * *Final Report* * * DATE OF EXAM: Sep 23 2021 8:54AM [facility] 0013 - CT NECK SOFT [...] any questions regarding this interpretation, please call [phone]. If you are unable to reach us at the number above, please feel free to contact [facility] at [phone]. [id number] CN Normal [facility] Comp Metabolic Panelon 09-23 Albumin [Mass/Vol] 4.4 g/dL Normal 3.9-4.9 [facility] ALP [Catalytic activity/Vol] 167 U/L High 38-113 [facility] ALT [Catalytic activity/Vol] 17 U/L Normal 10-54 [facility] Anion gap [Moles/Vol] 11 mmol/L Normal 9-18 [facility] AST [Catalytic activity/Vol] 21 U/L Normal 14-40 [facility] Bilirubin [Mass/Vol] 0.7 mg/dL Normal 0.2-1.3 [facility] Calcium [Mass/Vol] 10.4 mg/dL High 8.5-10.2 [facility] Chloride [Moles/Vol] 103 mmol/L Normal 97-105 [facility] CO2 [Moles/Vol] 25 mmol/L Normal 22-30 [facility] Creatinine [Mass/Vol] 1.29 mg/dL High 0.73-1.22 [facility] eGFR- Amer. >60 Normal [facility] eGFR-All Other Races 53 . Normal [facility] Comment on above: Result Comment: eGFR [...] GFR. Glucose [Mass/Vol] 104 mg/dL High 74-99 [facility] Comment on above: Result Comment: The [place] Diabetes Association (ADA) provides guidance for cutoff [...] Standards of Medical Care in Diabetes 2016, [place] [employer] Association. Diabetes Care. 2016.39(Suppl 1). Potassium [Moles/Vol] 4.1 mmol/L Normal 3.7-5.1 [facility] Protein [Mass/Vol] 7.4 g/dL Normal 6.3-8.0 [facility] Sodium [Moles/Vol] 139 mmol/L Normal 136-144 [facility] Urea nitrogen [Mass/Vol] 21 mg/dL Normal 9-24 [facility] Remote CBCDIF (for [facility] use o nly)on 09-23-2021 Abs Baso 0.03 k/uL Normal <0.11 [facility] Abs [place] 0.70 k/uL Normal <0.87 [facility] Abs Neut 3.11 k/uL Normal 1.45-7.50 [facility] Absolute nRBC <0.01 Normal <0.01 [facility] Basophils/100 WBC (Bld) 0.5 % Normal [facility] DTYPE Auto Diff Normal [facility] Eosinophils (Bld) [#/Vol] 0.21 10*3/uL Normal <0.46 [facility] Eosinophils/100 WBC (Bld) 3.7 % Normal [facility] Erythrocyte distribution width (RBC) [Ratio] 13.6 % Normal 11.5-15.0 [facility] Hematocrit (Bld) [Volume fraction] 34.2 % Low 39.0-51.0 [facility] Hemoglobin (Bld) [Mass/Vol] 11.6 g/dL Low 13.0-17.0 [facility] Lymphocytes (Bld) [#/Vol] 1.66 10*3/uL Normal 1.00-4.00 [facility] Lymphocytes/100 WBC (Bld) 29.0 % Normal [facility] MCH 29.4 pG Normal 26.0-34.0 [facility] MCHC (RBC) [Mass/Vol] 33.9 g/dL Normal 30.5-36.0 [facility] MCV (RBC) [Entitic vol] 86.6 fL Normal 80.0-100.0 [facility] Monocytes/100 WBC (Bld) 12.2 % Normal [facility] Neutrophils/100 WBC (Bld) 54.6 % Normal [facility] NRBCs 0.0 /100 WBC Normal 0 [facility] Platelet mean volume (Bld) [Entitic vol] 9.8 fL Normal 9.0-12.7 [facility] Platelets (Bld) [#/Vol] 163 10*3/uL Normal 150-400 [facility] RBC (Bld) [#/Vol] 3.95 10*6/uL Low 4.20-6.00 [facility] WBC (Bld) [#/Vol] 5.73 10*3/uL Normal 3.70-11.00 [facility] CNPNon 09-06-2021 CNPN Telephone (PETSAN) HOANG AQUINO ([id number]) 1935 M Date Time Provider Department 09/06/21 [...] lymph node [R59.9] Order(s):CT CHEST W IVCON [[id number]] Order #: [id number] FUTURE iv contrast (will be provided with [...] Status:Closed by KAYLAH WILHELM on 09/06/21 Normal [facility] Vital Signs Date Time Vital Sign Value Performing Clinician Shilpa morales 12-18-2024 13:05-0500 Body height 167.6 cm Echo Roblero MD Work Phone: [facility] 12-18-2024 13:05-0500 Body mass index (BMI) [Ratio] 26.47 kg/m2 Echo Roblero MD Work Phone: [facility] 12-18-2024 13:05-0500 Body weight 74.39 kg Echo Roblero MD Work Phone: [facility] 12-18-2024 13:05-0500 Diastolic blood pressure 71 mm[Hg] Echo Roblero MD Work Phone: [facility] 12-18-2024 13:05-0500 Heart rate 61 /min Echo Roblero MD Work Phone: [facility] 12-18-2024 13:05-0500 Systolic blood pressure 156 mm[Hg] Echo Roblero MD Work Phone: [facility] Encounters Encounter Date Encounter Type Care Provider Facility Start: 06-23-2025 End: 06-23-2025 ambulatory [facility] Start: 12-31-2024 End: 12-31-2024 ambulatory ANIL [facility] Start: 12-27-2024 End: 01-03-2025 Telephone encounter Echo [...] right ea r (Primary Dx); 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 Facility: Procedures Date Procedure Procedure Detail Performing Clinician Start: 03-15-2022 PSA screening BETTY CARRERA Comment on above: Performed By: #### [facility] #### [facility] [address] [place] [address] Dr. Lindsey Weiss Plan of Treatment Date Care Activity Detail Author Start: 12-18-2024 End: 12-18-2025 Ear culture Ear culture Microbiology Routine Otorrhea of right ear Expected: 12/18/2024 (Approximate), Expires: 12/18/2025 [facility] Work Phone: Comment on above: Expected: 12/18/2024 (Approximate), Expires: 12/18/2025 Start: 07-21-2024 Influenza vaccination Influenza Vacc ine (#1) [facility] Start: 2002 Pneumococcal Vaccine : 65+ Years (1 of 1 - PCV) Pneumococcal Vaccine: 65+ Years (1 of 1 - PCV) [facility] Payers Date Payer Category Payer Unknown [id number] [address] [facility] [id number] 2001 Medicare MEDICARE [id number] 1959 Medicare [id number] 1959 Unknown [id number] 1935 Unknown [id number] 1935 Unknown [id number] 1935 Unknown [id number] Social History Date Type Detail Facility Tobacco smoking stat [facility] Tobacco smoking consumption unknown [facility] Start: 1935 Sex assigned at Not on file [facility] Start: 12-18-2024 Gender identity Not on file [facility] Start: 12-18-2024 Tobacco smoking stat [facility] Never smoked tobacco [facility] Start: 12-18-2024 [...] Note Facility 06-23-2025 Note [facility] Subjective Hoang Aquino is a [...] specified abnormal findings of blood chemistry Other intermediate designer (current) drug therapy Disorder of skin of [...] developed pericardial effusion and was transferred to [facility] where he underwent pericardiocentesis. This did [...] mg tablet, RADHA (more content not included)... [facility] 12-31-2024 Note Cardiovascular [facility] SUBJECTIVE Chief Complaint Patient presents [...] specified abnormal findings of blood chemistry Other intermediate designer (current) drug therapy Disorder of skin of [...] and Rhythm: No (more content not included)... [facility] 12-31-2024 Note Patient here for 6 [...] All other systems reviewed and are negative. [facility] 12-27-2024 Telephone encounter Note Tried to call pt but it just rings [facility] 12-27-2024 Miscellaneous Notes Tried to call pt but it just rings RX sent in per cx documented in this encounter [facility] 12-27-2024 Telephone encounter Note RX sent in per cx [facility] 12-18-2024 History of Present illness Narrative Images from the original note were not included. Subjective Patient ID: Hoang Aquino is a 89 y.o. male who presents for Cancer (Yearly check lost to follow up ) C/O right otorrhea No family history on file. 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 Hyperlipidemia ([facility]/HCC) 04/08/2013 Hypertensive disorder ([facility]/HCC) 12/19/2022 Hypothyroidism ([facility]/HCC) 10/30/2019 Impacted cerumen 04/08/2013 Irritable bowel syndrome 04/08/2013 Kidney stone 04/08/2013 Lumbar radiculopathy 12/18/2024 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 There is no [employer] ASSISTANT mass or ulcer evident Assessment/Plan Diagnoses and all orders for this visit: Otorrhea of right ear - Ear culture; Future Nasopharyngeal carcinoma (CMS/HCC) Cx obtained from RT ear. Will tx with oral and topical abx. No evidence of recurrent NPC documented in this encounter [facility] 01-19-2023 Note OPERATIVE NOTE OPERATION [...] ensuring mobility, phacoemulsification was performed in a [id number]-type fashion. After all nuclear material had been [...] the following day for postoperative care. [facility] 01-19-2023 Note PREOPERATIVE HISTORY AND PHYSICAL [...] go forward with his elective procedure. [facility] 09-23-2021 Note HNO ID: [id number] Author: Katy Spence RT(R) Service: ? Author [...] RT Domo(R) September 23, 2021 8:50 AM [facility] Evaluation note Diagnosis Otorrhea of right ear- [...] section and content) DATE CREATED AUTHOR 12/24/2021 [facility] DATE CREATED AUTHOR AUTHOR'S ORGANIZ ATION 01/27/2023 [facility] DATE CREATED AUTHOR AUTHOR'S ORGANIZ ATION 12/20/2024 [facility] DATE CREATED AUTHOR AUTHOR'S ORGANIZ ATION 06/25/2025 [facility] Care Teams (unrecognized sec tion and content) [employer] Super[employer] Relationship Specialty Start Date End Date Tim Smith MD [address] [place] [phone] PCP - General Family Medicine 12/18/24 [employer] Relationship Specialty Start Date End Date Tim Smith MD [address] [place] [phone] PCP - General Family Medicine 12/18/24 [employer] Super[employer] Relationship Specialty Start Date End Date Tim Smith MD [address] [place] [phone] PCP - General Family Medicine 12/18/24 Reason [...] BE BASED ON THE PRIMARY CLINICAL RECORDS. [employer] [facility]. provides no warranty or guarantee of the accuracy or completeness of information in this document.
[2025-08-05 14:49] LABS: Alanine Aminotransferase 30 U/L (16-63); Albumin Globulin Ratio 1.1; Albumin Level 4.3 g/dL (3.4-5.0); Alkaline Phosphatase 134 U/L (46-116); Anion Gap 11.7; Aspartate Amino Transferase 26 U/L (15-37); Blood Urea Nitrogen 21.0 mg/dL (7.0-18.0); Calcium 9.6 mg/dL (8.5-10.1); Carbon Dioxide 28.6 mmol/L (21.0-32.0); Chloride 103 mmol/L (98-107); Estimated GFR (African America 52 (>=60 mL/min/1.73m^2); Estimated GFR (Non-African Ame 43 (>=60 mL/min/1.73m^2); Globulin 3.9 g/dL; Glucose 91 mg/dL (74-106); Potassium 4.3 mmol/L (3.5-5.1); Sodium 139 mmol/L (136-145); Total Protein 8.2 g/dL (6.4-8.2)
[2025-08-05 15:00] LABS: Cholesterol 156 mg/dL (<=200); Free T3 1.71 pg/mL (2.18-3.98); HDL Cholesterol 45 mg/dL (40-60); Thyroid Stimulating Hormone 0.064 uIU/mL (0.358-3.740); Triglycerides 126 mg/dL (<=150); VLDL CHOLESTEROL 25.2 mg/dL
[2025-08-05 15:03] LABS: NT Pro B Type Natriuretic Pept 2927.0 pg/mL (<=1800.0)
== END 2025-08-05 13:42 | disposition home or self-care (01) ==
LOC: LAB 13:41
PROVIDERS: PCP Family Medicine; Visit Provider Family Medicine
DX: E03.9 Hypothyroidism, unspecified (principal); I48.91 Unspecified atrial fibrillation; I51.7 Cardiomegaly; E78.5 Hyperlipidemia, unspecified; R73.09 Other abnormal glucose; Z12.12 Encounter for screening for malignant neoplasm of rectum; Z12.5 Encounter for screening for malignant neoplasm of prostate; R53.83 Other fatigue; I50.30 Unspecified diastolic (congestive) heart failure; I11.0 Hypertensive heart disease with heart failure
CPT/HCPCS: 36415; 80053; 80061; 83036; 83880; 84436; 84443; 84481; 84484; 85025; G0103